=== PATIENT | male | born 1945 | race Caucasian/White ===

== ENCOUNTER 2018-02-02 14:28 | Emergency (ER) | payer MEDICARE, OTHER, SELFPAY ==
[2018-02-02 14:36] VITALS: BP 134/56; PULSE 67; RESP 18; TEMP 36.6; O2SAT 96
--- NOTE | 2018-02-02 15:17 | DI.REPORT_ITS ---
SYMPTOM/DIAGNOSIS: FELL, PAIN LEFT SHOULDER; Multiple views. No priors. No acute fracture or dislocation is seen. There is near complete loss of the glenohumeral joint with subchondral sclerosis, osteophyte formation and subchondral cyst present. There are hypertrophic changes seen at the acromioclavicular joint. Calcifications are seen adjacent to the greater tuberosity consistent with calcific tendinitis. No radiopaque foreign bodies are seen in the soft tissues. IMPRESSION: 1. No acute fracture or dislocation. 2. Severe degenerative changes of the left shoulder.
--- NOTE | 2018-02-02 16:07 | ED.GENADUL ---
Disposition Clinical Impression: Left shoulder pain, Osteoarthritis of left shoulder Disposition: HOME Condition: Good Instructions: Osteoarthritis (ED), Shoulder Pain (ED) Additional Instructions: Continue to take your normal prescribed medication and follow-up with physical therapist as recommended by the [facility]. feel free to return for any new or significant worsening of symptoms otherwise if not improving over the next 2 weeks please follow-up with your primary care provider for reassessment. Referrals: [facility] [Outside] - 2 weeks (If not improving follow-up with your primary care provider for reassessment.) Forms: Physical Therapy Referral Medical Decision Making - Radiology Data Radiology results: report reviewed, image reviewed - Medical Decision Making Patient presenting to the emergency department for chief complaint of left shoulder pain after fall. Patient has been evaluated by primary care and sent to physical therapy but due to them not performing imaging patient was concerned for possible more serious injury. Patient does have significant reduction of range of motion and given patient's age and complaint of fall I do feel that radiological imaging is warranted given that this is not been improving over the last 2 weeks. Patient does state severe arthritis so this may be more a flareup of discomfort due to ongoing arthritis but so I do feel it would be beneficial to perform imaging at this time. Review of radiological imaging and radiologist interpretation shows severe degeneration of the joint of the shoulder but no fractures or dislocations noted. Patient was informed of these findings and that he should continue with recommendation for physical therapy to see if they can increase some range of motion of the joint otherwise to follow back up with the [facility] in [place] for possible referral to orthopedist as needed or if not improving after physical therapy. Patient otherwise recommended to take his normal medications as he does for gout and his arthritis. Was encouraged to continue to perform gentle range of motion activities as I feel this may help pending physical therapy follow-up. Patient encouraged to return for any new or worsening symptoms otherwise to follow-up as directed previously. After discussion of diagnosis and plan of care with patient patient agreed and stated no further needs, questions, or concerns at this time. History of Present Illness - General Chief complaint: Orthopedic Stated complaint: FELL-LEFT SHOULDER INJURY Time Seen by Provider: 02/02/18 14:45 Source: patient, family, RN notes reviewed Mode of arrival: ambulatory Limitations: no limitations - History of Present Illness Initial comments: Patient presenting to the emergency department with chief complaint of falling from the toilet 2 weeks ago and landing on his left shoulder. Patient denies any loss of consciousness chest pain, or syncope that occurred he just leaned too far forward and fell over. Since then he has had persistent pain to his left shoulder. He does report that he has ongoing arthritis and has recently been seen by his primary care provider for the same complaint but they did not order any x-ray imaging of the shoulder and just wanted him to go to physical therapy. Him and his are concerned for more serious illness due to them not performing any imaging and are here requesting imaging of the shoulder. Onset/Timin -: week(s) Location: left, upper extremity Severity scale (1-10): 6 Quality: aching Consistency: constant Improves with: rest Worsens with: movement Associated Symptoms: denies other symptoms Treatments Prior to Arrival: none - Related Data Atenolol 100 mg PO DAILY 03/14/14 Simvastatin 40 mg PO DAILY 03/14/14 Folic Acid 1 mg PO DAILY 06/28/15 Omeprazole 20 mg PO DAILY 06/28/15 Tamsulosin HCl 2 tab PO HS 02/05/16 Allopurinol 200 mg PO DAILY 02/02/18 Calcium Acetate 667 mg PO . DIRECTED 02/02/18 Carboxymethylcellulose Sodium [Lubricant Eye Drop] 1 drp OP QID PRN PRN 02/02/18 Citric Acid/Sodium Citrate [Cytra-2 Oral Solution] 473 ml PO HS 02/02/18 Ferrous Sulfate [Feosol] 325 mg PO TID 02/02/18 Fluticasone Propionate [Flovent Diskus] 50 mcg IH BID 02/02/18 Hydrocodone Bit/Acetaminophen [Hydrocodon-Acetaminoph 7.5-325] 1 each PO TID PRN PRN 02/02/18 Hydroxychloroquine Sulfate 200 mg PO BID 02/02/18 Lactobacillus Acidophilus [Acidophilus] 1 cap PO DAILY 02/02/18 NIFEdipine CR [Procardia-Xl] 30 mg PO DAILY 02/02/18 Allergies Allergy/AdvReac Type Severity Reaction Status Date / Time Penicillins Allergy Severe Swelling/Ed Unverified 02/02/18 14:42 shantell dicloxacillin Allergy per [facility] Unverified 02/02/18 16:07 terazosin Allergy per [facility] Unverified 02/02/18 16:08 Review of Systems Constitutional: no symptoms reported Respiratory: denies: cough, shortness of breath Cardiovascular: denies: chest pain, palpitations, syncope Musculoskeletal: as per HPI, arthralgia Neurological: numbness (Occasional and intermittent that runs on the left shoulder into the lower arm.) Past Medical History - Past Medical History Medical history: arthritis, ESRD, hyperlipidemia, hypertension Gout, renal insufficiency, end-stage renal disease on dialysis. Surgical history: other (Dialysis shunt right extremity, tonsillectomy, multiple plastic surgeries.) - Social History Smoking status: former smoker Alcohol use: none Drug use: none General Exam - General Limitations: no limitations General appearance: alert, in no apparent distress - Head Head exam: Present: atraumatic, normocephalic - Neck Neck exam: Absent: tenderness - Respiratory Respiratory exam: Present: normal lung sounds bilaterally. Absent: respiratory distress, decreased breath sounds - Cardiovascular Cardiovascular Exam: Present: regular rate, normal rhythm, normal heart sounds. Absent: systolic murmur, diastolic murmur - Expanded Upper Extremity Exam Left Shoulder Exam: Present: tenderness (To palpation of anterior shoulder and scapula.). Absent: full ROM (Significant decreased range of motion of shoulder which patient states has slightly worsened after the fall. Patient has severe reduction in external rotation and abduction of the shoulder.), swelling, deformity, crepidus, dislocation, tenderness over AC joint Upper Arm exam: Present: normal inspection. Absent: tenderness Elbow exam: Present: normal inspection. Absent: tenderness Neuro motor exam: Present: wrist extension intact, thumb opposition intact, thumb IP flexion intact, thumb adduction intact, fingers 2-5 abduction intact Neurosensory exam: Present: 2-point discrimination, radial nerve intact, ulnar nerve intact, median nerve intact Vascular: Present: normal capillary refill, radial pulse (2+) - Neurological Exam Neurological exam: Present: alert, oriented X3. Absent: altered - Skin Skin exam: Present: warm, dry Course Vital Signs - 24 hr /09/17 14:36 Temperature 36.6 C Pulse 67 Respiratory 18 Rate Blood Pressure 134/56 Pulse Oximetry 96
--- NOTE | 2018-02-02 16:10 | DI.VRAD_ITS ---
EXAM: XR Left Shoulder Complete, 2 or More Views EXAM DATE/TIME: 02/02/2018 3:54 PM CLINICAL HISTORY: 72 years old, male; Pain; Other: Lt shoulder; Patient HX: Fall TECHNIQUE: XR Left shoulder complete 2 or more views. COMPARISON: No relevant prior studies available. FINDINGS: Bones/joints: Severe degenerative changes of the shoulder joint with near-complete loss of joint space. There is sclerosis and geode formation. No acute fracture. No dislocation. Soft tissues: Normal. IMPRESSION: 1. Severe degenerative changes of the shoulder joint. 2. No acute fracture or dislocation. Dictated and Authenticated by: Sanford Mcnally MD. Ordering:ANIRUDH HONG MD
== END 2018-02-02 16:44 | disposition home or self-care (01) ==
PROVIDERS: Emergency Provider Student in an Organized Health Care Education/Training Program
DX: M25.512 Pain in left shoulder (principal); M19.012 Primary osteoarthritis, left shoulder; W18.11XA Fall from or off toilet without subsequent striking against object, initial encounter; I12.0 Hypertensive chronic kidney disease with stage 5 chronic kidney disease or end stage renal disease; N18.6 End stage renal disease; Z99.2 Dependence on renal dialysis
CPT/HCPCS: 73030; 99283 ×2

== ENCOUNTER 2018-03-07 18:08 | Inpatient (IN) | payer MEDICARE, OTHER, SELFPAY ==
[2018-03-07] VITALS (32 sets, daily range): BP systolic 93–125; BP diastolic 47–68; PULSE 70–81; RESP 18–32; TEMP 36.9–37.1; O2SAT 94–100
--- NOTE | 2018-03-07 18:39 | DI.RAD_ITS ---
SYMPTOMS/DIAGNOSIS: WEAKNESS, ? PNEUMONIA AP AND LATERAL CHEST: Comparison is made with [id number]. The lungs are poorly inflated on both views. The patient was unable to hold his breath. The lungs are grossly clear. The heart appears enlarged, unchanged. IMPRESSION: Limited exam. No visible pneumonia.
--- NOTE | 2018-03-07 18:41 | DI.RAD_ITS ---
SYMPTOM/DIAGNOSIS: MID RT FOOT PAIN, RT LEG SWELLING, REDNESS, ? FX OR OSTEO RIGHT TIBIA AND FIBULA: There is soft tissue atrophy as well as scarring. There is marked soft tissue calcification which somewhat obscures the bony detail. There is no evidence of fracture. No gross bony erosions are seen. IMPRESSION: Soft tissue calcification and soft tissue deformity. No acute bony abnormality is visible. RIGHT FOOT: There is soft tissue swelling, greatest dorsally and medially. A soft tissue wound is seen at the great toe. No definite areas of bony destruction are seen. There is fusion between the first cuneiform and first metatarsal. Fusion of the toes as well as talonavicular joint is seen. There is deformity of the distal phalanx of the fourth toe. IMPRESSION: Soft tissue wound is seen at the medial aspect of the great toe. There are no definite findings of osteomyelitis. Multiple bony fusions are seen.
[2018-03-07 19:20] LABS: HCT 37.5 % (40.0-50.0); HGB 12.1 g/dL (13.5-17.5); Mean Corp. HGB Concentration 32.3 g/dL (32.0-36.0); Mean Corpuscular Hemoglobin 33.7 pg (27.0-33.0); Mean Corpuscular Volume 104.5 fL (80-95); Mean Platelet Volume 9.2 fL (8.0-11.0); Platelet Count 237 x1000/uL (130-400); RBC 3.59 m/cumm (4.50-6.00); RBC Distribution Width 14.9 % (11.8-14.1); White Blood Cell Count 18.62 k/cumm (4.4-10.8)
[2018-03-07 19:35] LABS: ALT 29 U/L (12-78); AST 27 U/L (15-37); Albumin 3.2 g/dL (3.4-5.0); Alkaline Phosphatase 122 U/L (46-116); Anion Gap 10.6 mmol/L (3-11); BUN 67 mg/dL (7-18); Bilirubin, Direct 0.16 mg/dL (0.00-0.20); Bilirubin, Total 0.4 mg/dL (0.2-1.0); CO2 27.4 mmol/L (21.0-32.0); Calcium 9.6 mg/dL (8.5-10.1); Chloride 96 mmol/L (98-107); Estimated GFR 8.85 (mL/min/1.73m2); Glucose 82 mg/dL (70-100); Magnesium 1.4 mg/dL (1.8-2.4); Potassium 4.5 mmol/L (3.5-5.1); Sodium 134 mmol/L (136-145); Total Protein 8.1 g/dL (6.4-8.2)
[2018-03-07 19:47] LABS: Absolute Lymphocyte Count 0.19 k/cumm (1.2-3.4); Absolute Neutrophil Count 15.45 k/cumm (1.2-6.7)
[2018-03-07 19:48] LABS: Absolute Monocyte Count 1.49 k/cumm (0.11-0.7); RBC Morphology Normal
[2018-03-07 19:50] LABS: CREATININE 6.29 mg/dL (0.70-1.30); Diff Comment Manual Differential
[2018-03-07 19:55] LABS: Troponin I 0.08 ng/mL (0.00-0.06)
--- NOTE | 2018-03-07 19:59 | DI.VRAD_ITS ---
EXAM: XR Chest, 2 Views CLINICAL HISTORY: 72 years old, male; Signs and symptoms; Other: Weakness; R/O pna TECHNIQUE: Frontal and lateral views of the chest. COMPARISON: CR - CHEST 2 VIEWS PA,LAT 06/28/2015 12:37 PM FINDINGS: Lungs: Unremarkable pulmonary vasculature. Clear lungs. Diminished lung volumes. Pleural space: No pleural effusion or pneumothorax. Heart: Mild cardiomegaly, unchanged. Mediastinum: Unremarkable. Bones/joints: Degenerative spondylosis of the thoracic spine. Severe degenerative arthrosis of both glenohumeral joints. IMPRESSION: 1. Mild cardiomegaly, unchanged. 2. Diminished lung volumes. Dictated and Authenticated by: Kyle Santana MD. Ordering:TAMERA ESCOBAR MD
--- NOTE | 2018-03-07 20:08 | DI.VRAD_ITS ---
EXAM: XR Right Foot Complete, 3 or More Views CLINICAL HISTORY: 72 years old, male; Signs and symptoms; Other: Mid r foot pain, R/O acute fx/osteo; Additional info: Ap and obl views taken cross table/with angles as patient could not move foot TECHNIQUE: Frontal, lateral and oblique views of the right foot. COMPARISON: No relevant prior studies available. FINDINGS: Bones/joints: Soft tissue calcifications within the ankle and foot suggestive of connective tissue disease. Bony ankylosis of the talonavicular joint and at least partial bony ankylosis of the subtalar and calcaneocuboid joints. Bony ankylosis of multiple tarsal bones and the first and second tarsal-metatarsal joints. Bony ankylosis of the second toe distal interphalangeal, third toe proximal interphalangeal and fifth toe distal interphalangeal joints. These findings are likely the sequela of ankylosing spondylitis. No acute fracture. No dislocation. Soft tissues: Soft tissue swelling and superficial ulceration of the medial soft tissues of the great toe at the level of the interphalangeal joint. There are findings suspicious for minimal periostitis at the medial cortical surface of the proximal phalanx head. No chriss bone destruction is identified. These changes may be reactive to soft tissue inflammation as well as indicative of mild/early osteomyelitis. No radiopaque foreign body. IMPRESSION: 1. Swelling and ulceration of the great toe soft tissues consistent with cellulitis. No chriss bone destruction is identified to confirm osteomyelitis. However, there is questionable minimal periostitis at the medial cortical surface of the proximal phalanx head which may indicate early/mild osteomyelitis. 2. Extensive soft tissue calcification throughout the ankle and foot likely secondary to connective tissue disease. 3. Polyarticular ankylosis within the hindfoot, midfoot and forefoot likely secondary to ankylosing spondylitis. Dictated and Authenticated by: Kyle Santana MD. Ordering:TAMERA ESCOBAR MD
--- NOTE | 2018-03-07 20:12 | W.ED.GENAD ---
Discharge Plan Discharge Details Chief Complaint: SOB Clinical Impression: Sepsis, Cellulitis of leg, right Reason For Visit: CELLULITIS RIGHT FOOT, ESRD Admit Date/Time: 03/07/18 22:51 Admit Provider: Nathen Mcmillan Attending Provider: Nathen Mcmillan [facility] Care Provider: [facility] Provider: Suhail Mustafa Disposition Patient Disposition: [facility] INPATIENT Condition: Stable Discharge Data Discharge Date/Time-TO BE ENTERED AT DEPARTURE: 03/08/18 00:03 Medical Decision Making <Tricia King DO - Last Filed: 03/08/18 15:38> [facility] Narrative Medical decision making narrative: Patient is a 72-year-old male with history of hypertension, hyperlipidemia, end-stage renal disease on dialysis who presents for vomiting ?1 last night and weakness since last night. Patient last received dialysis yesterday. He denies chest pain, cough, abdominal pain, shortness of breath. He makes a small amount of urine. He also admits to right foot pain. 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 had initially stated that his right leg appears at baseline and he last saw podiatry 1 week ago and states it had been improving. He has faint DP and PT pulses. There is erythema extending from the right mid leg down to right foot. His right plantar surface great toe ulcer appears hardened and not acutely infected. His right lateral ankle ulcer appears to have healthy granulation tissue and no obvious cellulitis. He denies any headache or neck pain. Vitals within normal limits. EKG on arrival notes a rate of 76, sinus, no acute ST elevation or depression, QTC 479, QRS 116. With patient's age, past medical history, comorbidities, will do a cardiac workup, urinalysis, chest x-ray as well as a right foot and leg x-ray. 1999 --labs and imaging reviewed. White blood cell count 18. Bands 25. Creatinine 6.29. Potassium 4.5. Troponin 0.08 Chest x-ray no evidence of acute infection. Right foot x-ray notes swelling and ulceration of the great toe consistent with cellulitis. No osteomyelitis. There is a questionable periostitis at the medial proximal phalanx head which could indicate early/mild osteomyelitis. Right tib-fib x-ray pending. At this point, workup appears consistent with an acute infection. As patient is on dialysis, will hold on vancomycin, daptomycin or linezolid. Will order a dose of Cipro and clindamycin. If there is osteomyelitis, clindamycin will not cover as well, but I am concerned about giving the above mentioned antibiotics due to his dialysis. Will discuss with nephrology. also states that patient had 3 bouts of C. difficile in the fall. Patient will need admission for IV antibiotics and will need dialysis. [facility] 2029 --is endorsed to Dr. Mustafa [facility]. Lab Data Lab Results 03/07/18 03/07/18 Range/Units 19:10 19:10 WBC 18.62 H (4.4-10.8) k/cumm RBC 3.59 L (4.50-6.00) m/cumm Hgb 12.1 L (13.5-17.5) g/dL Hct 37.5 L (40.0-50.0) % MCV 104.5 H (80-95) fL MCH 33.7 H (27.0-33.0) pg MCHC 32.3 (32.0-36.0) g/dL RDW 14.9 H (11.8-14.1) % Plt Count 237 (130-400) x1000/uL MPV 9.2 (8.0-11.0) fL Immature Gran % See Differential Neutrophils % 58.0 Lymphocytes % 1.0 Monocytes % 8.0 Eosinophils % 0.0 Basophils % 0.0 Absolute Neutrophils 15.45 H (1.2-6.7) k/cumm Band Neutrophils 25.0 % Absolute Lymphocytes 0.19 L (1.2-3.4) k/cumm Absolute Monocytes 1.49 H (0.11-0.7) k/cumm Absolute Eosinophils 0.00 (0.0-0.7) k/cumm Absolute Basophils 0.00 (0.0-0.2) k/cumm Metamyelocytes 8.0 % Differential Comment Manual differential RBC Morphology Normal Sodium 134 L (136-145) mmol/L Potassium 4.5 (3.5-5.1) mmol/L Chloride 96 L (98-107) mmol/L Carbon Dioxide 27.4 (21.0-32.0) mmol/L Anion Gap 10.6 (3-11) mmol/L BUN 67 H (7-18) mg/dL Creatinine 6.29 H* (0.70-1.30) mg/dL Estimated GFR/1.73 m2 8.85 (mL/min/1.73m2) Glucose 82 (70-100) mg/dL Calcium 9.6 (8.5-10.1) mg/dL Magnesium 1.4 L (1.8-2.4) mg/dL Total Bilirubin 0.4 (0.2-1.0) mg/dL Conjugated Bilirubin 0.16 (0.00-0.20) mg/dL AST 27 (15-37) U/L ALT 29 (12-78) U/L Alkaline Phosphatase 122 H (46-116) U/L Troponin I 0.08 H (0.00-0.06) ng/mL Total Protein 8.1 (6.4-8.2) g/dL Albumin 3.2 L (3.4-5.0) g/dL <Suhail Mustafa, - Last Filed: 03/07/18 23:18> MDM Narrative Medical decision making narrative: This case was signed out to be by my colleague Dr. King. The patient demonstrated an elevated white count, notable bandemia, mildly elevated lactate at 2.4, and no identifiable source in the lungs or the urine. He has no headache to suggest meningitis. He does have redness on his right lower extremity as well as a small ulcer on his right great toe and heel. My colleague felt that this is most likely source of an infection, and I do agree. X-ray of the lower extremity per virtual radiology states that there is no acute fracture, no definite radiographic evidence of osteoarthritis, extensive soft tissue atrophy and calcification. No radiographic evidence of acute osteomyelitis. The patient has maintained hemodynamic stability here, shows no signs of severe sepsis. There was a delay for giving the clindamycin and so I changed to vancomycin 500 mg which will be appropriate for his current renal function. He has gotten Cipro as well. [facility], however they state that the patient is unable to come secondary to the fact that they have no nephrology for dialysis until April. They have refused the patient. We then contacted [facility], they were unable to accept any non-severely critical patient for dialysis at this time. We did contact the [facility], they are unable to accept the patient currently, however they can by tomorrow morning. I discussed this with Dr. Munguia, and he agreed for accepting the patient for tomorrow morning. I discussed the case with and he agreed to accept the patient overnight until the patient can be transferred tomorrow morning at 8 AM. I have extensively reviewed the treatment plan with the patient. I have addressed all patient concerns at this time. I have also discussed the plan with the admitting physician and they agree with the current assessment and plan and have agreed to assume responsibility for the patient. All parties demonstrate verbal understanding and agreement with our assessment and plan at this time. Diagnosis cellulitis of the right lower extremity HPI - General Adult <Tricia King DO - Last Filed: 03/08/18 15:38> General Mode of arrival: EMS. Date/Time Provider Initiated Documentation: 03/07/18 18:19. Limitations to Documentation: no limitations. Information obtained by: patient. HPI Narrative: Patient is a 72-year-old male with history of hypertension, hyperlipidemia, and end-stage renal disease on dialysis who presents with fatigue and vomiting once since last night. Patient last had dialysis yesterday and states he completed a full session. States the vomitus was clear mixed with phlegm but denies any blood. He admits to eating and drinking okay today. He still makes a small amount of urine. He does admit to right foot pain since this morning. He has a history of an old injury in 1967 in which his right leg was crushed and has chronic vascular insufficiency in his right leg with chronic right foot ulcers. states he is [facility] for [facility] and states he was recently seen last week and was told the ulcers appear to be improving. He denies chest pain or shortness of breath. Denies abdominal pain or known urinary symptoms. He denies recent surgery, recent travel or recent antibiotics. Related Data Home Medications Medication Instructions Recorded Confirmed atenolol 100 mg PO DAILY 03/14/14 03/07/18 simvastatin 40 mg PO DAILY 03/14/14 03/07/18 folic acid 1 mg PO DAILY 06/28/15 03/07/18 omeprazole 20 mg PO DAILY 06/28/15 03/07/18 tamsulosin 2 tab PO HS 02/05/16 03/07/18 Carboxymethylcellulose Sodium 1 drp OPHTHALMIC QID PRN PRN 02/02/18 03/07/18 [Lubricant Eye Drop] acidophilus-pectin, citrus 1 cap PO DAILY 02/02/18 03/07/18 allopurinol 200 mg PO DAILY 02/02/18 03/07/18 calcium acetate 667 mg PO . DIRECTED 02/02/18 03/07/18 ferrous sulfate [Feosol] 325 mg PO TID 02/02/18 03/07/18 hydrocodone-acetaminophen 1 ea PO TID PRN PRN 02/02/18 03/07/18 hydroxychloroquine 200 mg PO BID 02/02/18 03/07/18 nifedipine 30 mg PO DAILY 02/02/18 03/07/18 sodium citrate-citric acid 473 ml PO HS 02/02/18 03/07/18 [Cytra-2] acetaminophen [Tylenol Arthritis 650 mg PO PRN PRN 03/07/18 03/07/18 Pain] fluticasone [Flovent Diskus] 03/07/18 Allergies Allergy/AdvReac Type Severity Reaction Status Date / Time Penicillins Allergy Severe Swelling/Ed Unverified 03/07/18 18:18 shantell dicloxacillin [facility] Unverified 03/07/18 18:18 terazosin Allergy [facility] Unverified 03/07/18 18:18 General Stated Complaint: SOB AMADA: 2 Review of Systems <Tricia King DO - Last Filed: 03/08/18 15:38> Review of Systems All systems reviewed & are unremarkable except as noted in HPI and below Constitutional Reports chills, Denies excessive sweating, Reports fatigue, Denies fever(s), Reports weakness and Denies weight loss Eyes Patient Reports system reviewed and no additional complaints, except as docu and Denies blurry vision ENT Denies vertigo, Denies dizziness, Denies otalgia, Denies nasal congestion, Denies sore throat and Denies throat swelling Cardiovascular Denies chest pain, Denies syncope, Denies rapid heart rate and Denies dyspnea Respiratory Denies dyspnea Gastrointestinal Denies abdominal pain and Denies diarrhea Comments: 1 episode of vomiting last night Genitourinary Denies hematuria, Denies dysuria and Denies flank pain Musculoskeletal Denies back pain, Denies joint swelling and Reports other (R foot and leg pain) Integumentary/Breasts Denies lesions and Denies rash Neurologic Denies behavioral changes, Denies confusion, Denies vertigo, Denies dizziness, Denies syncope and Reports weakness Psychiatric Denies behavioral changes, Denies confusion and Denies depression Endocrine Denies excessive sweating and Reports fatigue Hematologic/Lymphatic Denies easy bruising and Denies lymphadenopathy Allergic/Immunologic Denies throat swelling Exam <Tricia King DO - Last Filed: 03/08/18 15:38> Const General: cooperative and ill appearing Orientation: alert and awake HENMT Head: normal to inspection Ears: hearing grossly normal bilaterally, external ears normal and TM's normal bilaterally General nose exam: external nose normal Face and sinus: normal facial exam Mouth: oral mucosae normal Eyes General: appearance normal, both eyes and all related structures Eyelids: eyelids normal Pupils: PERRL EOM: EOM intact bilaterally Neck Neck: normal visual inspection Lymphatic: no lymphadenopathy noted Chest Chest: normal inspection of the chest Resp Effort & Inspection: normal respiratory effort and able to speak in complete sentences Auscultation: clear to auscultation bilaterally Cardio Rate: regular rate Rhythm: regular rhythm GI Inspection: normal to inspection Palpation: soft, not firm, no guarding, no hepatosplenomegaly, no masses and nontender Auscultation: normal bowel sounds Back/Spine/Pelvis Back: no CVA tenderness Skin General skin exam: no rashes or lesions noted Neuro General: alert and awake Cognition: normal cognition Speech: speech normal Gait: normal gait Motor: muscle tone normal throughout Sensory Exam: no sensory deficits noted Extrem Other: Atrophic right lower extremity with significant scarring and loss of muscle mass from old injury. Moderate erythema noted to distal right lower extremity. Tenderness to palpation along plantar surface of midfoot. Faintly palpable right DP/PT pulses. There is an approximately 3 x 3 cm hard erosion noted to plantar surface of right great toe with no significant surrounding cellulitis, induration or fluctuance. There is an approximate 3 x 3 cm open wound noted on the right lateral ankle with clean edges and granulation tissue and no obvious cellulitis. Psych Speech and Movement: other (delayed responses) Affect: blunted and other (flat affect, looks down when speaking to hin ) Course <Tricia King DO - Last Filed: 03/08/18 15:38> Vital Signs Temperature 98.4 F 03/07/18 18:09 Pulse 77 03/07/18 18:09 Respiratory Rate 18 03/07/18 18:09 Blood Pressure 110/58 L 03/07/18 18:09 Pulse Oximetry 97 03/07/18 18:09 Temperature 98.4 F 03/07/18 18:09 Pulse 77 03/07/18 18:09 Respiratory Rate 24 03/07/18 18:37 Blood Pressure 110/58 L 03/07/18 18:09 Pulse Oximetry 97 03/07/18 18:09 Lab/Test Results Lab/Test Results: Laboratory Tests 03/07/18 03/07/18 19:10 19:10 WBC 18.62 H RBC 3.59 L Hgb 12.1 L Hct 37.5 L MCV 104.5 H MCH 33.7 H MCHC 32.3 RDW 14.9 H Plt Count 237 MPV 9.2 Immature Gran % See Differential Neutrophils % 58.0 Lymphocytes % 1.0 Monocytes % 8.0 Eosinophils % 0.0 Basophils % 0.0 Absolute Neutrophils 15.45 H Band Neutrophils 25.0 Absolute Lymphocytes 0.19 L Absolute Monocytes 1.49 H Absolute Eosinophils 0.00 Absolute Basophils 0.00 Metamyelocytes 8.0 Differential Comment Manual differential RBC Morphology Normal Sodium 134 L Potassium 4.5 Chloride 96 L Carbon Dioxide 27.4 Anion Gap 10.6 BUN 67 H Creatinine 6.29 H* Estimated GFR/1.73 m2 8.85 Glucose 82 Calcium 9.6 Magnesium 1.4 L Total Bilirubin 0.4 Conjugated Bilirubin 0.16 AST 27 ALT 29 Alkaline Phosphatase 122 H Troponin I 0.08 H Total Protein 8.1 Albumin 3.2 L Sign Out <Tricia King DO - Last Filed: 03/08/18 15:38> Sign Out Data: Sign Out Comment: Case [facility] Last updated by Tricia King DO at 03/07/18 20:42
[2018-03-07] MEDS: Normal Saline 250 ML IV (20:50)
--- NOTE | 2018-03-07 20:57 | DI.VRAD_ITS ---
EXAM: XR Right Tibia and Fibula, 2 Views CLINICAL HISTORY: 72 years old, male; Signs and symptoms; Other: Rt leg swelling/redness TECHNIQUE: Frontal and lateral views of the right tibia and fibula. COMPARISON: No relevant prior studies available. FINDINGS: Bones/joints: Extensive soft tissue calcifications throughout the right lower leg and ankle and atrophied soft tissues, likely secondary to connective tissue disorder. The sequelae of old soft tissue injury secondary to other primary etiology is not excluded. Degenerative arthrosis of the knee and ankle joint. No fracture. No radiographic evidence of acute osteomyelitis. Evaluation of the tibia and fibula is slightly suboptimal secondary to the superimposed soft tissue calcifications. Soft tissues: See above. Vasculature: Probable vascular calcifications at the ankle. IMPRESSION: 1. No acute fracture. 2. No definite radiographic evidence of osteoarthritis. 3. Extensive soft tissue atrophy and calcification. Dictated and Authenticated by: Kyle Santana MD. Ordering:TAMERA ESCOBAR MD
[2018-03-07] MEDS: MORPHine 10 MG/ML VIAL 4 MG IVP (21:08)
[2018-03-07] MEDS: CIPROFLOXACIN 400 MG/200 ML BAG 200 MG IVPB (21:10)
[2018-03-07 21:40] LABS: Lactate-non-spesis 2.4 mmol/L (0.6-1.4)
[2018-03-07 22:20] LABS: Bilirubin Small (Negative); Blood Small (Negative); Clarity Sl Cloudy; Glucose Negative (Negative); Ketones 15 mg/dL (Negative); Leukocyte Esterase Small (Negative); Nitrite Negative (Negative); Specific Gravity 1.025 (1.005-1.025); Urobilinogen 0.2 EU/dL (Up TO 0.2)
[2018-03-07 22:37] LABS: Epithelial Cells Few HPF (Negative); WBC >50 HPF (0-5)
[2018-03-07 22:38] LABS: Bacteria Few HPF (Negative); C & S Indicated? Yes; Casts Negative LPF (Negative); Crystals Negative HPF (Negative); Mucus Negative (Negative); Other Cells Moderate Renal (Negative)
[2018-03-07] MEDS: VANCOMYCIN 500 MG in Normal Saline 100 ML 100 MG IVPB (23:28)
[2018-03-07] MEDS: Normal Saline 100 ML (23:28)
[2018-03-08] VITALS (7 sets, daily range): BP systolic 91–108; BP diastolic 56–58; PULSE 75–83; RESP 18–22; TEMP 36.9–38.4; O2SAT 95–96
[2018-03-08] MEDS: Enoxaparin 30 MG/0.3 ML SYR SC (03:41)
--- NOTE | 2018-03-08 05:55 | INITIAL_ITS ---
- If Service Date Differs Date of service: 03/08/18 Time of Service: 08:05 Care Management Initial Assess REASON FOR HOSPITALIZATION:: Cellulitis (R) Foot PAST MEDICAL HISTORY/PAST SURGICAL HISTORY:: Per ER assessment: Gout, Hypertension, High cholesterol, Kidney stones, Renal insufficiency, ESRD on dialysis, Colonoscopy, Tonsillectomy, Multiple plastic surgeries, Dialysis shunt (R) arm PREVIOUS FUNCTIONAL STATUS/SOCIAL/FAMILY SUPPORTS:: Erik resides with his Sheba in [place]. He is independent at baseline. Zaida Sheba is his main support in the community. CURRENT FUNCTIONAL STATUS:: Erik is in his room lying in bed this morning. He will be transferred to [facility] for further medical care as Erik is a dialysis patient. ADVANCE DIRECTIVES:: None on file Has patient been provided with information about the portal?: Yes Did the patient sign up for the portal?: No CODE STATUS:: Full Code INSURANCE COVERAGE / FINANCIAL ISSUES:: Medicare, [facility] CURRENT HOME/COMMUNITY SERVICES/EQUIPMENT:: Currently Erik has no services or medical equipment in the community. PRIMARY CARE PHYSICIAN:: JOSUE POTENTIAL DISCHARGE NEEDS:: Transfer to [facility] PATIENT/FAMILY EDUCATION NEEDS:: Review DC instructions, any limitations, and ongoing DC planning discussion. ANTICIPATED BARRIERS TO DISCHARGE:: None identified at this time. TRANSPORTATION:: Via [facility] ambulance service. PLAN:: Erik will transfer to [facility] for futher medical treatment. Erik will transport via [facility]. His Sheba is aware of transfer. Readmission - Within the Past 30 Days Yes or No: N
[2018-03-08 06:05] LABS: Abs Immature Grans 1.31 k/cumm (0.0-0.09); HCT 32.3 % (40.0-50.0); HGB 10.6 g/dL (13.5-17.5); Mean Corp. HGB Concentration 32.8 g/dL (32.0-36.0); Mean Corpuscular Hemoglobin 34.5 pg (27.0-33.0); Mean Corpuscular Volume 105.2 fL (80-95); Mean Platelet Volume 8.9 fL (8.0-11.0); Platelet Count 215 x1000/uL (130-400); RBC 3.07 m/cumm (4.50-6.00); RBC Distribution Width 14.7 % (11.8-14.1); White Blood Cell Count 18.72 k/cumm (4.4-10.8)
[2018-03-08 06:15] LABS: Anion Gap 8.7 mmol/L (3-11); BUN 78 mg/dL (7-18); CO2 28.3 mmol/L (21.0-32.0); Calcium 9.2 mg/dL (8.5-10.1); Chloride 93 mmol/L (98-107); Estimated GFR 8.31 (mL/min/1.73m2); Glucose 52 mg/dL (70-100); Potassium 5.4 mmol/L (3.5-5.1); Sodium 130 mmol/L (136-145)
[2018-03-08 06:19] LABS: C-Reactive Protein > 25.00 mg/dL (0.0-0.3); CREATININE 6.64 mg/dL (0.70-1.30)
[2018-03-08 06:52] LABS: ESR 97 MM/HR (1-20)
[2018-03-08 06:59] LABS: Absolute Lymphocyte Count 0.19 k/cumm (1.2-3.4); Absolute Monocyte Count 0.75 k/cumm (0.11-0.7)
[2018-03-08 07:00] LABS: Hypochromasia 2+; Macrocytosis 2+; Polychromasia Present
[2018-03-08 07:01] LABS: Poikilocytes 2+
--- NOTE | 2018-03-08 08:00 | PDOC.CMIN ---
- If Service Date Differs Date of service: 03/08/18 Time of Service: 08:05 Care Management Initial Assess REASON FOR HOSPITALIZATION:: Cellulitis (R) Foot PAST MEDICAL HISTORY/PAST SURGICAL HISTORY:: Per ER assessment: Gout, Hypertension, High cholesterol, Kidney stones, Renal insufficiency, ESRD on dialysis, Colonoscopy, Tonsillectomy, Multiple plastic surgeries, Dialysis shunt (R) arm PREVIOUS FUNCTIONAL STATUS/SOCIAL/FAMILY SUPPORTS:: Erik resides with his Sheba in [place]. He is independent at baseline. Zaida Sheba is his main support in the community. CURRENT FUNCTIONAL STATUS:: Erik is in his room lying in bed this morning. He will be transferred to [facility] for further medical care as Erik is a dialysis patient. ADVANCE DIRECTIVES:: None on file Has patient been provided with information about the portal?: Yes Did the patient sign up for the portal?: No CODE STATUS:: Full Code INSURANCE COVERAGE / FINANCIAL ISSUES:: Medicare, [facility] CURRENT HOME/COMMUNITY SERVICES/EQUIPMENT:: Currently Erik has no services or medical equipment in the community. PRIMARY CARE PHYSICIAN:: JOSUE POTENTIAL DISCHARGE NEEDS:: Transfer to [facility] PATIENT/FAMILY EDUCATION NEEDS:: Review DC instructions, any limitations, and ongoing DC planning discussion. ANTICIPATED BARRIERS TO DISCHARGE:: None identified at this time. TRANSPORTATION:: Via [facility] ambulance service. PLAN:: Erik will transfer to [facility] for futher medical treatment. Erik will transport via [facility]. His Sheba is aware of transfer. Readmission - Within the Past 30 Days Yes or No: N
--- NOTE | 2018-03-08 08:09 | CMDISCH_ITS ---
- If Service Date Differs Date of service: 03/08/18 Time of Service: 08:08 LACE Index Scoring Tool - Questions: Length of Stay (in days): 2 Acuity (Admit via E.D.?): Yes Comorbidities: Liver or Renal Disease E.D. Visits: 3 - Answers: Total Score: 13 Risk of Readmission: High Risk Care Management Discharge Reason for Hospitalization: Cellulitis (R) Foot Discharge Plan: Erik to transfer to [facility] for further medical treatment. [facility] to transport. Zaida Sheba is aware. Patient/Family Education Needs: Review DC instructions and any limitations. Services Needed at Discharge: Transportation ([facility])
--- NOTE | 2018-03-08 14:12 | HPE_ITS ---
Date of Admission: March 07, 2018 Chief Complaint: Fever, chills, nausea. Assessment: 1. Cellulitis, right foot. Rule out bacteremia. 2. End-stage renal disease. 3. Essential hypertension. Plan: 1. Will continue with IV antibiotics, including vancomycin being dosed based on his end-stage renal disease. I'll have Pharmacy to dose his vancomycin. 2. Start the patient on ertapenem 500 mg IV q 24 hours, which is the appropriate dosing for end-stag e renal disease. 3. Will arrange for transfer to [facility] in the morning to the care of Dr. Munguia who is the hospitalist th at was notified tonight by our ER physician. History of Present Illness: Mr. Hidalgo is a 72-year-old male with a history of hypertension, and end-stage renal disea se, on dialysis every Monday, Monday, and Monday. He had his usual dialysis today. He was compla ining of feeling nauseated and chilling today. He came to the Emergency Room where he was noted to h ave a white cell count of 18,000, a low grade fever, and a blood lactate of 2.4. Patient has been ch ronically dealing with an ulceration of his right great toe for which he has been seeing his podiatri st in [place], Dr. Cruz. Patient regularly follows up at [facility] He also follows with his discharging machine operator Dr. Isaac at [facility] and attends dialysis here locally in [facility] every M , Monday, and Monday. Dr. Suhail Mustafa saw him from our Emergency Room, and because the pat ient needed acute inpatient care and would likely be here for more than 24 hours, it was felt he'd be best served being transferred to a tertiary care center that could handle his dialysis needs. Both [facility] and [facility] were full and could not take any acute kvng ents tonight, and asked that we admit the patient overnight and begin treatment for what appears to b e a cellulitis of his right foot. The patient has had redness and some swelling of his right foot. This is the same foot and leg that had to be reconstructed after an accident in the back in 1968 while on maneuvers in [place]. Patient has had vascular reconstruction of that leg and multiple skin grafts to that right leg, and he's had chronic recurrent infections in that foot. Dr. Mustafa o btained some blood cultures and started him on vancomycin. Previous to Dr. Mustafa he was seen by Dr. King who gave him a dose of ciprofloxacin. My dictation [facility] is being hampered by the fact that I've not been able to access records in [facility], interfering with my ability to look at the EMR, thus my dictation will be abbreviated. Past Medical History: 1. Essential hypertension. 2. Chronic kidney disease resulting in end-stage renal disease, necessitating hemodialysis every Mon, Monday, and Monday. 3. History of gout. 4. Former smoker, quit over 40 years ago. 5. Former drinker, quit over 40 years ago. 6. 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 Surgical History: 1. Reconstruction of his right leg. 2. Multiple skin grafts of right leg. 3. Placement of AV fistula in his right arm for hemodialysis purposes. Social History: He's , lives in [place]. He's done a number of jobs. 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 Review of Systems: Pertinent for fatigue and malaise as well as fever and chills, including rigors. Denies any chest pain, pressure, shortness of breath. He has had nausea. He's had some dry heaves. Denies any diarrhea. No melena. No hematochezia. No hematemesis. Denies any dysuria. Makes a very small amount of urine. Examination: Vital signs: See nurse's report. General appearance: Elderly male in no acute distress. HEENT: Unremarkable. Neck: Without JVD. Normal carotid pulse. No bruits. No thyromegaly. No cervical lymphadenopathy. Lungs: Clear. Heart: Regular with a soft systolic grade 2/6 murmur over the left lower sternal border. No thrill, heave, or gallop. Abdomen: Soft and nontender. Extremities: He has scars on his right shoulder where skin was taken for grafting on his leg. He als o has scars on his left leg where skin and vessels were harvested from the left leg for use in the ri ght leg. Left foot is warm, non-swollen. No erythema, normal pulses. Right leg is scarred. Foot i s deformed. There is slight erythema over the right foot and ankle. The right great toe has dry steffen ckened eschar over the bottom of the right great toe with no purulent drainage. Pedal pulses are dim inished of the right foot. Sensation is markedly diminished to light touch over the right foot. He has no feeling to light touch.
--- NOTE | 2018-07-05 18:53 | DSE_ITS ---
DATE OF ADMISSION: March 07, 2018 DATE OF TRANSFER: March 08, 2018 HISTORY OF PRESENT ILLNESS: See my admission note from 03/08/18 for details. In summary, this 72-year-old, male with end-stage renal disease on hemodialysis every , Monday, and Monday, also has hypertension. He had his usual dialysis on the day of admission a nd complained of feeling nauseated and chilling. He came to the Emergency Room where he was noted to have a low-grade fever, an elevated blood lactate of 2.4, and a white count of 18,000. He was found to have an ulceration of his right great toe which he had been treating as an outpatient with his po diatrist at the [facility]. He was seen in the Emergency Room by Dr. Cem Mustafa who attempted to transfer him but as there were no tertiary beds available for transfer, t he patient was admitted to our facility temporarily for IV fluids and IV antibiotics. Blood cultures were obtained and the patient was started on IV vancomycin; however, he was also given a dose of cip rofloxacin in the Emergency Room by the previous ER physician, Dr. King. See my History and Physic al for the rest of the details of his admission. Also see Dr. King's ER note. HOSPITAL COURSE: He was febrile at 38.4. Heart rate was stable in the 80s. Blood pressure was mild ly depressed at 91/58. Room air oxygen saturation was 95%. See my History and Physical for details of my examination. His treatment included the vancomycin and ciprofloxacin previously mentioned. He was given supplemen gavin oxygen and placed on telemetry. Within a few hours of admission at [facility] he was accepted in trans paz to the [facility] to Dr. Munguia, Nephrology Department. The patient was transferred in hemodynamically stable condition. Discharge instructions and discharge medications will be reconciled upon discharge from the [facility]. DIAGNOSIS: End-stage renal disease requiring hemodialysis and cellulitis of the foot with possible s epsis.
== END 2018-03-08 07:59 | DRG 602 ==
LOC: ER 23:18 → MS 03-08 00:15
PROVIDERS: Physician Assistant; Admitting Provider Internal Medicine; Emergency Provider Student in an Organized Health Care Education/Training Program; Visit Provider Internal Medicine
DX: L03.115 Cellulitis of right lower limb (principal); N18.6 End stage renal disease; I12.0 Hypertensive chronic kidney disease with stage 5 chronic kidney disease or end stage renal disease; B95.4 Other streptococcus as the cause of diseases classified elsewhere; Z99.81 Dependence on supplemental oxygen
CPT/HCPCS: 36415; 80048; 80053; 80076; 85652; 87040; 87077; 93005; 96361; 96365; 96367; 96375; 99285; 71046; 73590; 73630; 81003; 81015; 83605; 83735; 84484; 85025; 86140; 87086; 93010; 99222; G0378; J0744; J1335; J1650; J2270

== ENCOUNTER 2019-05-17 13:16 | Emergency (ER) | payer MEDICARE, OTHER, SELFPAY ==
[2019-05-17] VITALS (23 sets, daily range): BP systolic 141–160; BP diastolic 64–81; PULSE 81–99; RESP 11–29; TEMP 36.7–37.1; O2SAT 92–98
--- NOTE | 2019-05-17 13:38 | ED.GENADUL_ITS ---
Discharge Plan Disposition Patient Disposition: AGAINST MEDICAL ADVICE Condition: Improving Discharge Details Chief Complaint: SOB Clinical Impression: Fluid overload Primary Care Provider: [place] [place] Provider: Paool Jean Baptiste Home Meds and New Rx's Prescriptions: Continued simvastatin 40 MG tablet 40 mg PO DAILY RF: 0 folic acid 1 MG tablet 1 mg PO DAILY RF: 0 omeprazole 20 MG tablet,delayed release (DR/EC) 20 mg PO DAILY RF: 0 tamsulosin 0.4 MG capsule 2 tab PO HS RF: 0 nifedipine 30 MG tablet extended release 60 mg PO DAILY RF: 0 allopurinol 100 MG tablet 200 mg PO DAILY RF: 0 sodium citrate-citric acid [Cytra-2] 473 ML solution 473 ml PO HS RF: 0 hydrocodone-acetaminophen 1 EACH tablet 1 ea PO TID PRN PRNRF: 0 ferrous sulfate [Feosol] 325 MG tablet 325 mg PO TID RF: 0 hydroxychloroquine 200 MG tablet 200 mg PO BID RF: 0 calcium acetate 667 MG capsule 667 mg PO . DIRECTED RF: 0 Carboxymethylcellulose Sodium [Lubricant Eye Drop] 15 ML Drops 1 drp Ophthalmic QID PRN PRNRF: 0 amlodipine 5 mg Tablet 5 mg PO DAILY RF: 0 lidocaine 5 % Adhesive Patch,Medicated 1 patch TOPICAL DAILY RF: 0 collagenase clostridium histo. 250 unit/gram Ointment 1 applic TOPICAL DAILY RF: 0 Lactobacillus acidophilus Capsule 1 PO DAILY RF: 0 fluticasone propionate 50 mcg/actuation [place],Suspension 1 spray INTRANASAL Q12H RF: 0 diclofenac sodium 1 % Gel 4 g TOPICAL BID PRNRF: 0 paraffin Wax MISCELLANEOUS QID RF: 0 fluticasone propionate [Flovent Diskus] 50 mcg/actuation Blister With Device RF: 0 acetaminophen [Tylenol Arthritis Pain] 650 mg Tablet Extended Release 650 mg PO PRN PRNRF: 0 Discharge Instructions Additional Instructions: You have declined admission/transfer to the hospital this evening. Return at any time for reevaluation. Continue your regularly prescribed medications. Follow-up with dialysis tomorrow as planned. Return to ER for any acute or emergent concerns. Medical Decision Making 73-year-old male presents from home with his . He reports 2 days of progressive mild shortness of breath. He denies chest pain, he has not had a new cough and no fever. He receives Monday//Monday dialysis and reports a normal dialysis run yesterday. Patient reports a dry weight of approximately 230 pounds. 234 pounds today. He is well-appearing and oxygenating 89-90% on room air, normalized with 1 L nasal cannula. Patient placed on a quality assurance monitor chassis, EKG, laboratories obtained and patient referred for chest x-ray. Labs reveal patient's known renal failure with a creatinine of 5.1. BUN is 32. Sodium 139, potassium 5.3, chloride 97, bicarb 32. Troponin is indeterminate at 0.07, BNP >35,000. CXR: Mild interstitial edema. No pneumonia. Discussed with the patient and his admission to the hospital for ongoing management and dialysis. Discussed with him that this would mandate transfer given the lack of inpatient dialysis here at [facility]. Patient states he wishes to be discharged and will follow-up with dialysis tomorrow. Discussed with him that this would be against our medical advice. He and his understand return precautions to the ER in the interim. Lab Data Lab results reviewed: Yes I reviewed the patient's lab results. ECG Data Attestation: I personally reviewed and interpreted this ECG (s) as follows: Interpretation: Normal sinus rhythm, rate of 90, the QRS is narrow, there is no ST segment elevation, there is nonspecific T wave abnormality present in aVL. HPI General Mode of arrival: wheelchair . Date/Time Provider Initiated Documentation: 05/17/19 13:24 . Limitations to Documentation: no limitations . Information obtained by: patient and family . History of Present Illness 73 year old M presents to the emergency department with the chief complaint of SOB worse over 2 days time, normal dialysis yesterday, described as moderate, and is localized to the chest. Patient reports no radiation. Patient started experiencing this day(s) and it has been constant. No relieving factors improve symptom(s), No exacerbating factors reported . Patient notes denies chest pain, cough and fever/chills. Patient did receive the following treatments prior to arrival, none Related Data Home Medications Medication Instructions Recorded Confirmed simvastatin 40 mg PO DAILY 03/14/14 05/17/19 folic acid 1 mg PO DAILY 06/28/15 05/17/19 omeprazole 20 mg PO DAILY 06/28/15 05/17/19 tamsulosin 2 tab PO HS 02/05/16 05/17/19 Carboxymethylcellulose Sodium 1 drp OPHTHALMIC QID PRN PRN 02/02/18 05/17/19 [Lubricant Eye Drop] allopurinol 200 mg PO DAILY 02/02/18 05/17/19 calcium acetate 667 mg PO . DIRECTED 02/02/18 05/17/19 ferrous sulfate [Feosol] 325 mg PO TID 02/02/18 03/07/18 hydrocodone-acetaminophen 1 ea PO TID PRN PRN 02/02/18 05/17/19 hydroxychloroquine 200 mg PO BID 02/02/18 05/17/19 nifedipine 60 mg PO DAILY 02/02/18 05/17/19 sodium citrate-citric acid 473 ml PO HS 02/02/18 05/17/19 [Cytra-2] acetaminophen [Tylenol Arthritis 650 mg PO PRN PRN 03/07/18 03/07/18 Pain] fluticasone propionate [Flovent 03/07/18 Diskus] Lactobacillus acidophilus 1 PO DAILY 05/17/19 amlodipine 5 mg PO DAILY 05/17/19 05/17/19 collagenase clostridium histo. 1 applic TOPICAL DAILY 05/17/19 05/17/19 diclofenac sodium 4 g TOPICAL BID PRN 05/17/19 05/17/19 fluticasone propionate 1 spray INTRANASAL Q12H 05/17/19 05/17/19 lidocaine 1 patch TOPICAL DAILY 05/17/19 05/17/19 paraffin applic MISCELLANEOUS QID 05/17/19 Allergies Allergy/AdvReac Type Severity Reaction Status Date / Time Penicillins Allergy Severe Swelling/Ed Unverified 05/17/19 13:48 shantell dicloxacillin Allergy [facility] Unverified 05/17/19 13:48 terazosin Allergy per [facility] Unverified 05/17/19 13:48 General Stated Complaint: SOB AMADA: 2 Review of Systems Narrative: 6 systems reviewed and otherwise negative. Denies weight gain. States dry weight is 230 to 235 pounds [facility] Social History Smoking/Tobacco Use Status: Former Tobacco Use Alcohol Intake: never Drug use: Never Substance use type: does not use Do you feel safe at home: Yes Do you feel safe in your relationship?: Yes Exam Narrative Exam Narrative: GEN: awake, alert, oriented 3. Pleasant, well groomed, interactive. HEAD: Normocephalic, atraumatic ENT: Mucous membranes moist, oropharynx unremarkable, External ear exam unremarkable EYES: PERRL, EOMI NECK: Full ROM, no JACQUIE, no menigismus CHEST/RESP: Nontender, clear to auscultation bilateral, no wheeze/rhonchi/rales CARDIOVASCULAR: RRR, no murmur, rub adelso. 2+ Rad pulse bilateral ABDOMEN: Soft, nontender, no mass. +Bowel sounds EXT: Full ROM, no edema, no rash. Right upper extremity humerus with AV fistula, positive thrill Neuro: Grossly normal neurologic exam, conversant, interactive. Psych: Speech fluent, thoughts congruent, affect normal Course Vital Signs Vital signs: Vital Signs Temperature 36.7 C 05/17/19 13:18 Pulse 99 H 05/17/19 13:18 Blood Pressure 160/81 H 05/17/19 13:18 Pulse Oximetry 93 L 05/17/19 13:18 Temperature 36.7 C 05/17/19 13:18 Temperature Source Skin 05/17/19 13:18 Pulse 99 H 05/17/19 13:18 Blood Pressure 160/81 H 05/17/19 13:18 Blood Pressure Position Sitting 05/17/19 13:18 Pulse Oximetry 93 L 05/17/19 13:18 Oxygen Delivery Method Nasal Cannula 05/17/19 13:25 Oxygen Flow Rate 2 05/17/19 13:25 Pain Level 6 05/17/19 13:18
[2019-05-17 14:23] LABS: Abs Immature Grans 0.05 k/cumm (0.0-0.09); Absolute Basophil Count 0.02 k/cumm (0.0-0.2); Absolute Eosinophil Count 0.11 k/cumm (0.0-0.7); Absolute Lymphocyte Count 0.69 k/cumm (1.2-3.4); Absolute Monocyte Count 0.79 k/cumm (0.11-0.7); Absolute Neutrophil Count 6.13 k/cumm (1.2-6.7); Basophils % 0.3; Eosinophils % 1.4; HCT 36.9 % (40.0-50.0); HGB 11.1 g/dL (13.5-17.5); Immature Grans % 0.6; Lymphocytes % 8.9; Mean Corp. HGB Concentration 30.1 g/dL (32.0-36.0); Mean Corpuscular Hemoglobin 32.6 pg (27.0-33.0); Mean Corpuscular Volume 108.5 fL (80-95); Mean Platelet Volume 8.9 fL (8.0-11.0); Monocytes % 10.1; Neutrophils % 78.7; Platelet Count 317 x1000/uL (130-400); RBC Distribution Width 15.4 % (11.8-14.1); White Blood Cell Count 7.79 k/cumm (4.4-10.8)
[2019-05-17 14:37] LABS: ALT 17 U/L (16-63); AST 15 U/L (15-37); Albumin 3.4 g/dL (3.4-5.0); Alkaline Phosphatase 98 U/L (46-116); Anion Gap 9.6 mmol/L (3-11); BUN 32 mg/dL (7-18); Bilirubin, Total 0.3 mg/dL (0.2-1.0); CO2 32.4 mmol/L (21.0-32.0); Calcium 9.7 mg/dL (8.5-10.1); Chloride 97 mmol/L (98-107); Estimated GFR 11.11 (mL/min/1.73m2); Glucose 95 mg/dL (70-100); Magnesium 2.1 mg/dL (1.8-2.4); Potassium 5.3 mmol/L (3.5-5.1); Sodium 139 mmol/L (136-145); Total Protein 8.1 g/dL (6.4-8.2)
[2019-05-17 14:40] LABS: CREATININE 5.15 mg/dL (0.70-1.30)
[2019-05-17 14:41] LABS: Troponin I 0.07 ng/mL (0.00-0.06)
[2019-05-17 14:52] LABS: Diff Comment RBC Morph Reviewed
[2019-05-17 14:53] LABS: Anisocytosis 1+; Hypochromasia 1+; Macrocytosis 2+; Polychromasia Present
[2019-05-17 14:54] LABS: Poikilocytes 1+
--- NOTE | 2019-05-17 15:17 | DI.RAD_ITS ---
EXAM: XR CHEST 2V PA LATERAL INDICATION: SOB, dialysis pt. COMPARISON: XR CHEST 2V PA LATERAL from 03/07/2018 TECHNIQUE: 2D digital imaging was performed. FINDINGS: The heart is mildly enlarged but stable. There is prominence of the pulmonary vasculature suspicious for pulmonary edema. No consolidating infiltrate is present. There is a small amount of fluid in t he fissures. No pneumothorax is identified. Degenerative changes are seen in the spine. IMPRESSION: Findings suggestive of mild pulmonary venous congestion. The findings were discussed with the emergency department on the date of the examination
[2019-05-17 15:42] LABS: NT-proBNP > 35000 pg/mL
== END 2019-05-17 17:03 | disposition left against medical advice (07) ==
PROVIDERS: Emergency Provider Emergency Medicine
DX: E87.79 Other fluid overload (principal); N18.6 End stage renal disease; Z99.2 Dependence on renal dialysis
CPT/HCPCS: 36415; 80053; 93005; 99285; 71046; 83735; 83880; 84484; 85025; 93010; 99284

== ENCOUNTER 2020-04-10 20:37 | Emergency (ER) | payer MEDICARE, OTHER, SELFPAY ==
--- NOTE | 2020-04-10 20:30 | DI.CT_ITS ---
EXAM: CT HEAD CERVICAL SPINE WO CLINICAL HISTORY: fall with head injury. TECHNIQUE: Imaging Protocol: Axial computed tomography images with coronal and sagittal reformatted images were created and reviewed COMPARISON: No exams were available for comparison FINDINGS: CT Head: Ventricles and Extra axial spaces: Normal in size and morphology for the patient's age. Hemorrhage: None. Cerebral parenchyma: There are areas of decreased attenuation in the white matter consistent with sma ll vessel ischemic disease. No acute territorial infarct. Midline shift: None. Brainstem/Cerebellum: Normal. Calvarium: Normal. Visualized Paranasal sinuses/Mastoids: Clear. Soft Tissues: There is a small right scalp hematoma. CT Cervical Spine: Bones: No acute fracture or subluxation. The bones are osteopenic. Multilevel degenerative changes a re seen throughout the cervical spine. There are Schmorl's nodes at the superior endplates of C5 and T1. Soft Tissues: Unremarkable. Lung Apices: Clear. IMPRESSION: 1. No acute intracranial process. 2. No acute fracture or subluxation in the cervical spine. RADIATION DOSE DELIVERED: 1,482.55mGy.cm Total DLP DATA REPOSITORY: All CT scans at this facility are submitted to the National Radiology Data Registry (NRDR) Dose Index Registry (DIR) with the [employer] ([employer]). RADIATION OPTIMIZATION: All CT scans at this facility use at least one of these dose optimization te chniques: automated exposure control; mA and/or kV adjustment per patient size (includes targeted exa ms where dose is matched to clinical indication); or iterative reconstruction.
[2020-04-10 20:39] VITALS: BP 142/77; PULSE 92; RESP 20; TEMP 36.6; O2SAT 94
--- NOTE | 2020-04-10 21:00 | DI.RAD_ITS ---
EXAM: XR HIP RT COMPLETE AP PELVIS INDICATION: fall, rt hip pain. COMPARISON: CR RT HIP COMPLETE AP PELVIS from 04/08/2014 TECHNIQUE: 2D digital imaging was performed. FINDINGS: No definite fracture or dislocation in the right hip is identified. Degenerative changes are seen in the hips bilaterally. There are degenerative changes again seen in the lower lumbar spine. The oss eous protuberance arising from the right iliac bone is unchanged compared to the prior examination. Suture material is seen overlying the sacrum. The soft tissues are unremarkable. IMPRESSION: No definite fracture or dislocation. If there is continued concern, a CT scan and/or MRI should be c onsidered for further evaluation. DATA REPOSITORY: RADIATION DOSE DELIVERED:
--- NOTE | 2020-04-10 21:00 | DI.RAD_ITS ---
EXAM: XR SHOULDER RT COMPLETE 2+V CLINICAL HISTORY: fall, pain in R shoulder, known arthritis. TECHNIQUE: 2D digital imaging was performed. COMPARISON: No previous for comparison. FINDINGS: BONES: No acute fracture is present. No bony destructive lesion is seen. JOINTS: Severe advanced degenerative changes are seen at the glenohumeral joint. There is loss of vo lume of the humeral head, narrowing of the glenohumeral joint space, subchondral sclerosis and cysts, and osteophytes present. Degenerative changes are seen at the acromioclavicular joint. SOFT TISSUE: Dystrophic calcification is seen in the soft tissues. IMPRESSION: 1. No acute fracture or dislocation. 2. 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 DATA REPOSITORY: RADIATION DOSE DELIVERED:
--- NOTE | 2020-04-10 22:06 | ED.GENADUL_ITS ---
Discharge Plan Disposition Patient Disposition: HOME Condition: Good Discharge Details Clinical Impression: Chronic arthritis, Fall, Contusion of scalp Primary Care Provider: [facility] ED Provider: Suhail Mustafa Home Meds and New Rx's Prescriptions: Continued simvastatin 40 MG tablet 40 mg PO DAILY RF: 0 folic acid 1 MG tablet 1 mg PO DAILY RF: 0 omeprazole 20 MG tablet,delayed release (DR/EC) 20 mg PO DAILY RF: 0 tamsulosin 0.4 MG capsule 2 tab PO HS RF: 0 nifedipine 30 MG tablet extended release 60 mg PO DAILY RF: 0 allopurinol 100 MG tablet 200 mg PO DAILY RF: 0 sodium citrate-citric acid [Cytra-2] 473 ML solution 473 ml PO HS RF: 0 hydrocodone-acetaminophen 1 EACH tablet 1 ea PO TID PRN PRNRF: 0 ferrous sulfate [Feosol] 325 MG tablet 325 mg PO TID RF: 0 hydroxychloroquine 200 MG tablet 200 mg PO BID RF: 0 calcium acetate(phosphat bind) 667 MG capsule 667 mg PO . DIRECTED RF: 0 Carboxymethylcellulose Sodium [Lubricant Eye Drop] 15 ML Drops 1 drp Ophthalmic QID PRN PRNRF: 0 amlodipine 5 mg Tablet 5 mg PO DAILY RF: 0 lidocaine 5 % Adhesive Patch,Medicated 1 patch TOPICAL DAILY RF: 0 collagenase clostridium histo. 250 unit/gram Ointment 1 applic TOPICAL DAILY RF: 0 Lactobacillus acidophilus Capsule 1 PO DAILY RF: 0 fluticasone propionate 50 mcg/actuation Comfort,Suspension 1 spray INTRANASAL Q12H RF: 0 diclofenac sodium 1 % Gel 4 g TOPICAL BID PRNRF: 0 paraffin Wax MISCELLANEOUS QID RF: 0 fluticasone propionate [Flovent Diskus] 50 mcg/actuation Blister With Device RF: 0 acetaminophen [Tylenol Arthritis Pain] 650 mg Tablet Extended Release 650 mg PO PRN PRNRF: 0 Discharge Instructions Additional Instructions: At this time there is no evidence of fracture in your skull, neck, arm or hips. You do have chronic severe arthritis so. Please take your home pain medications as directed. Please follow-up closely with your engineering specialist at the [place]. If you notice any worsening of your symptoms, or any new symptoms such as vomiting, diarrhea, fever, chills, shortness of breath, chest pain, numbness, weakness, or fainting , please return immediately to the emergency department for reevaluation. Please follow up with your primary care provider as soon as possible for reassessment and reevaluation. As always, it was a pleasure participating in your medical care today. Referrals: [facility] [Primary Care Provider] - Medical Decision Making 74-year-old male with a past medical history dialysis with fistula in the right arm, chronic notable arthritis of his shoulders bilaterally, not on blood thinners who presents today for evaluation of fall. Patient states that he was walking to fill his cup up with ice when his foot caught on the ground, and he had a mechanical trip and fall and landed on his right side and did hit his head. He denies any loss of consciousness. He was helped up by his . He complains of pain in his right shoulder right hip mild pain in his right head. No pain in the neck or back. He describes the presence of chronic pain in these areas but states that it feels slightly worse at this time. He denies any numbness or tingling, he denies any vision changes, he denies any blood thinner use. No other complaints at this time. Physical exam demonstrates notable restricted motion in the right shoulder, and mild restricted motion in the right hip, both of which the patient attributes to chronic components, he has tenderness with movement stating that this is also chronic but worse than normal. No midline cervical thoracic or lumbar spine tenderness. No neurologic deficits on exam. Mild contusion over the right forehead. Signs and symptoms are concerning for chronic severe arthritis, with worsening secondary to fall. However due to patient's age exam and risk factors will get x-ray for further evaluation. Patient does not want any thing for pain at this time. FINDINGS: Bones/joints: Severe glenohumeral joint degenerative disease. No acute fracture or dislocation. Moderate AC joint degeneration. Soft tissues: Soft tissue calcification in the deltoid muscle of chronic appearance. This may reflect previous myositis or old trauma with dystrophic calcium. IMPRESSION: 1. Severe arthritic degeneration of the right glenohumeral joint. 2. No acute fracture or dislocation. Thank you for allowing us to participate in the care of your patient. Dictated and Authenticated by: Antonio Mathews MD 04/10/2020 10:30 PM Eastern Time ([place] & [place]) FINDINGS: Bones/joints: Evnp-cm-[id number] arthritic degeneration of the right hip joint. No acute fracture. No dislocation. Lumbosacral spine degenerative disease. No pelvic fracture or diastasis. Irregularly contoured rim like hyperdense focus overlying the right iliac wing. This is of uncertain significance. Recommend clinical correlation. This may represent an implanted device. This is not appear to represent an acute bony process. This measures approximately 8.7 x 4.4 cm. Soft tissues: Unremarkable. IMPRESSION: 1. Ybos-mt-[id number] arthritic features of the right hip joint. 2. No acute fracture or dislocation. 3. Rim like calcified-appearing focus overlying the right iliac wing is of uncertain significance. Recommend clinical correlation. Thank you for allowing us to participate in the care of your patient. Dictated and Authenticated by: Antonio Mathews MD 04/10/2020 10:33 PM Eastern Time ([place] & [place]) FINDINGS: Brain: There is diffuse cerebral atrophy concordant with the patient's age. Chronic small vessel deep white matter ischemic disease is suggested by areas of patchy white matter low attenuation. No intracranial hemorrhage. No acute large territory CVA. No mass. No acute edema. No acute intracranial abnormality. Cerebral ventricles: No ventriculomegaly. Bones/joints: Unremarkable. No acute fracture. Paranasal sinuses: Visualized sinuses are unremarkable. No fluid levels. Mastoid air cells: Visualized mastoid air cells are well aerated. Soft tissues: Small right forehead region scalp contusion. No foreign body.. IMPRESSION: 1. No acute intracranial abnormality. 2. Age-appropriate atrophy and chronic small vessel deep white matter ischemia. 3. Mild right forehead scalp contusion/hematoma. 4. No skull fracture. FINDINGS: Vertebrae: No acute fracture. Normal alignment. Osteopenia. Multilevel degenerative disc and joint disease. Schmorl's node superior endplate C5 and T1. Discs/Spinal canal/Neural foramina: No significant disc protrusion. No severe spinal canal stenosis. Severe right foraminal stenosis at C3-C4 from osteophytic encroachment. Severe left foraminal stenosis at C5-C6 from osteophytic encroachment. Soft tissues: Unremarkable. Lungs: Lung apices are normal. IMPRESSION: 1. Degenerative cervical spine disease. 2. Osteopenia. 3. No acute fracture or dislocation. Thank you for allowing us to participate in the care of your patient. Dictated and Authenticated by: Antonio Mathews MD 04/10/2020 10:39 PM Eastern Time ([place] & [place]) HPI General Date/Time Provider Initiated Documentation: 04/10/20 20:40 . HPI Narrative: 74-year-old male with a past medical history dialysis with fistula in the right arm, chronic notable arthritis of his shoulders bilaterally, not on blood thinners who presents today for evaluation of fall. Patient states that he was walking to fill his cup up with ice when his foot caught on the ground, and he had a mechanical trip and fall and landed on his right side and did hit his head. He denies any loss of consciousness. He was helped up by his . He complains of pain in his right shoulder right hip mild pain in his right head. No pain in the neck or back. He describes the presence of chronic pain in these areas but states that it feels slightly worse at this time. He denies any numbness or tingling, he denies any vision changes, he denies any blood thinner use. No other complaints at this time. Related Data Home Medications Medication Instructions Recorded Confirmed simvastatin 40 mg PO DAILY 03/14/14 05/17/19 folic acid 1 mg PO DAILY 06/28/15 05/17/19 omeprazole 20 mg PO DAILY 06/28/15 05/17/19 tamsulosin 2 tab PO HS 02/05/16 05/17/19 Carboxymethylcellulose Sodium 1 drp OPHTHALMIC QID PRN PRN 02/02/18 05/17/19 [Lubricant Eye Drop] allopurinol 200 mg PO DAILY 02/02/18 05/17/19 calcium acetate(phosphat bind) 667 mg PO . DIRECTED 02/02/18 05/17/19 ferrous sulfate [Feosol] 325 mg PO TID 02/02/18 03/07/18 hydrocodone-acetaminophen 1 ea PO TID PRN PRN 02/02/18 05/17/19 hydroxychloroquine 200 mg PO BID 02/02/18 05/17/19 nifedipine 60 mg PO DAILY 02/02/18 05/17/19 sodium citrate-citric acid 473 ml PO HS 02/02/18 05/17/19 [Cytra-2] acetaminophen [Tylenol Arthritis 650 mg PO PRN PRN 03/07/18 03/07/18 Pain] fluticasone propionate [Flovent 03/07/18 Diskus] Lactobacillus acidophilus 1 PO DAILY 05/17/19 amlodipine 5 mg PO DAILY 05/17/19 05/17/19 collagenase clostridium histo. 1 applic TOPICAL DAILY 05/17/19 05/17/19 diclofenac sodium 4 g TOPICAL BID PRN 05/17/19 05/17/19 fluticasone propionate 1 spray INTRANASAL Q12H 05/17/19 05/17/19 lidocaine 1 patch TOPICAL DAILY 05/17/19 05/17/19 paraffin applic MISCELLANEOUS QID 05/17/19 Allergies Allergy/AdvReac Type Severity Reaction Status Date / Time Penicillins Allergy Severe Swelling/Ed Unverified 05/17/19 13:48 shantell dicloxacillin Allergy per [facility] Unverified 05/17/19 13:48 terazosin Allergy per [facility] Unverified 05/17/19 13:48 General Stated Complaint: Orthopedic AMADA: 3 Review of Systems All systems reviewed & are unremarkable except as noted in HPI and below PFSH Social History Smoking/Tobacco Use Status: Former Tobacco Use Alcohol Intake: never Drug use: Never Substance use type: does not use Do you feel safe at home: Yes Do you feel safe in your relationship?: Yes Exam Narrative Exam Narrative: 1.Const: Well-nourished, Well-developed, appearing stated age 2.Eyes: PERRL, no conjunctival injection, and symmetrical lids. 3.ENT: Atraumatic external nose and ears. Moist MM. Neck: Symmetric, trachea midline, No thyromegaly. There is no evidence of raccoon eyes, andersen sign, CSF rhinorrhea, mastoid tenderness, cranial crepitus, hemotympanum, exophthalmos, or hyphema. Patient demonstrates intact dentition with no signs of tooth avulsion or fracture, no signs of jaw deformity, no evidence of a LeFort's fracture, with an intact palate, nose and orbital region. There is no evidence of a nasal septal hematoma. No proptosis. Jaw closes symmetrically. Airway is clear. He does have a mild hematoma over the right frontal forehead, no depression, no bleeding or laceration. 4.CVS: +S1/S2, No murmurs or gallops. Peripheral pulses 2+ and equal in all extremities. Brisk capillary refill in all extremities. 5.RESP: Unlabored respiratory effort. Clear to auscultation bilaterally. No wheezes rales or rhonchi 6.GI: Soft, Nontender/Nondistended, No hepatosplenomegaly. No guarding or re bound. 7.MSK: Extremities w/o deformity. No cyanosis or clubbing, No midline cervical thoracic or lumbar spine tenderness. Patient has no palpable tenderness over the right hip or right shoulder however he has notable pain with movement and notable restriction of the right shoulder which he states is chronic. Crepitus is noted, suspect notable arthritis. No evidence of clear deformity whatsoever. Right hip is slightly tender to palpation but otherwise stable, good movement with mild to moderate restriction which seems to be symmetric. 8.Skin: Warm, Dry. No rashes or lesions. Contusion/hematoma over the forehead 9.Neuro: appliquer zigzag II-XII grossly intact. Sensation grossly intact, no focal neurologic deficits. Normal [id number]-type-rtiddj, no dysdiadochokinesia. Normal vision. 10.Psych: (AAO) x3. Appropriate mood and affect Course Vital Signs Vital signs: Vital Signs Temperature 36.6 C 04/10/20 20:39 Pulse 92 H 04/10/20 20:39 Respiratory Rate 20 04/10/20 20:39 Blood Pressure 142/77 H 04/10/20 20:39 Pulse Oximetry 94 04/10/20 20:39 Temperature 36.6 C 04/10/20 20:39 Pulse 92 H 04/10/20 20:39 Respiratory Rate 20 04/10/20 20:39 Respiratory Effort 04/10/20 20:50 Blood Pressure 142/77 H 04/10/20 20:39 Pulse Oximetry 94 04/10/20 20:39 Oxygen Delivery Method Room Air 04/10/20 20:39 Oxygen Flow Rate 0 04/10/20 20:39 Pain Level 8 04/10/20 20:50
--- NOTE | 2020-04-16 16:03 | DI.VRAD_ITS ---
PROCEDURE INFORMATION: Exam: XR Right Shoulder Exam date and time: 04/10/2020 9:43 PM Age: 74 years old Clinical indication: Other: Fall, RT shoulder pain, known arthritis TECHNIQUE: Imaging protocol: XR Right shoulder. Views: 2 or more views. COMPARISON: No relevant prior studies available. FINDINGS: Bones/joints: Severe glenohumeral joint degenerative disease. No acute fracture or dislocation. Moderate AC joint degeneration. Soft tissues: Soft tissue calcification in the deltoid muscle of chronic appearance. This may reflect previous myositis or old trauma with dystrophic calcium. IMPRESSION: 1. Severe arthritic degeneration of the right glenohumeral joint. 2. No acute fracture or dislocation. Dictated and Authenticated by: Antonio Mathews MD. Ordering:BRENTON Jang MD
--- NOTE | 2020-04-16 16:03 | DI.VRAD_ITS ---
PROCEDURE INFORMATION: Exam: CT Head Without Contrast Exam date and time: 04/10/2020 9:57 PM Age: 74 years old Clinical indication: Other: Fall with head injury TECHNIQUE: Imaging protocol: Computed tomography of the head without contrast. COMPARISON: No relevant prior studies available. FINDINGS: Brain: There is diffuse cerebral atrophy concordant with the patient's age. Chronic small vessel deep white matter ischemic disease is suggested by areas of patchy white matter low attenuation. No intracranial hemorrhage. No acute large territory CVA. No mass. No acute edema. No acute intracranial abnormality. Cerebral ventricles: No ventriculomegaly. Bones/joints: Unremarkable. No acute fracture. Paranasal sinuses: Visualized sinuses are unremarkable. No fluid levels. Mastoid air cells: Visualized mastoid air cells are well aerated. Soft tissues: Small right forehead region scalp contusion. No foreign body.. IMPRESSION: 1. No acute intracranial abnormality. 2. Age-appropriate atrophy and chronic small vessel deep white matter ischemia. 3. Mild right forehead scalp contusion/hematoma. 4. No skull fracture. PROCEDURE INFORMATION: Exam: CT Cervical Spine Without Contrast Exam date and time: 04/10/2020 9:57 PM Age: 74 years old Clinical indication: Other: Fall with head injury TECHNIQUE: Imaging protocol: Computed tomography images of the cervical spine without contrast. COMPARISON: No relevant prior studies available. FINDINGS: Vertebrae: No acute fracture. Normal alignment. Osteopenia. Multilevel degenerative disc and joint disease. Schmorl's node superior endplate C5 and T1. Discs/Spinal canal/Neural foramina: No significant disc protrusion. No severe spinal canal stenosis. Severe right foraminal stenosis at C3-C4 from osteophytic encroachment. Severe left foraminal stenosis at C5-C6 from osteophytic encroachment. Soft tissues: Unremarkable. Lungs: Lung apices are normal. IMPRESSION: 1. Degenerative cervical spine disease. 2. Osteopenia. 3. No acute fracture or dislocation. Dictated and Authenticated by: Antonio Mathews MD. Ordering:MAYLIN Stanford MD
--- NOTE | 2020-04-16 16:03 | DI.VRAD_ITS ---
PROCEDURE INFORMATION: Exam: XR Right Hip with Pelvis when Performed Exam date and time: 04/10/2020 9:40 PM Age: 74 years old Clinical indication: Other: Fall, RT hip pain TECHNIQUE: Imaging protocol: XR Right hip with pelvis when performed. Views: 2 or 3 views. COMPARISON: No relevant prior studies available. FINDINGS: Bones/joints: Epsn-om-libmioyk arthritic degeneration of the right hip joint. No acute fracture. No dislocation. Lumbosacral spine degenerative disease. No pelvic fracture or diastasis. Irregularly contoured rim like hyperdense focus overlying the right iliac wing. This is of uncertain significance. Recommend clinical correlation. This may represent an implanted device. This is not appear to represent an acute bony process. This measures approximately 8.7 x 4.4 cm. Soft tissues: Unremarkable. IMPRESSION: 1. Nybr-ss-ggbknury arthritic features of the right hip joint. 2. No acute fracture or dislocation. 3. Rim like calcified-appearing focus overlying the right iliac wing is of uncertain significance. Recommend clinical correlation. Dictated and Authenticated by: Antonio Mathews MD. Ordering:BRENTON Jang MD
== END 2020-04-10 23:15 | disposition home or self-care (01) ==
PROVIDERS: Emergency Provider Student in an Organized Health Care Education/Training Program
DX: S00.83XA Contusion of other part of head, initial encounter (principal); W01.198A Fall on same level from slipping, tripping and stumbling with subsequent striking against other object, initial encounter; M15.9 Polyosteoarthritis, unspecified
CPT/HCPCS: 99284; 70450; 72125; 73030; 73502

== ENCOUNTER 2020-05-11 13:11 | Emergency (ER) | payer MEDICARE, OTHER, SELFPAY ==
--- NOTE | 2020-05-11 13:15 | DI.US_ITS ---
EXAM: US FISTULA EVALUATION DIALYSIS CLINICAL HISTORY: swelling TECHNIQUE: Ultrasound performed using standard protocol. COMPARISON: No exams were available for comparison FINDINGS: Limited evaluation of the forearm was obtained to evaluate swelling. Patient reportedly has previous ly revised dialysis fistula. There is heterogeneous predominantly fluid collection of the antecubita l fossa and associated collection in the medial forearm to upper arm measuring about 4 x 3 x 8 cm aide meter. Findings are highly suggestive of hematoma. Findings are suggestive of a leaking fistula or pseudoaneurysm, further vascular evaluation and correlation with the patient's prior studies is recom mended. IMPRESSION: DATA REPOSITORY:
[2020-05-11 13:29] VITALS: BP 144/71; PULSE 97; RESP 16; TEMP 36.1; O2SAT 95
--- NOTE | 2020-05-11 13:43 | ED.GENADUL_ITS ---
Discharge Plan Disposition Patient Disposition: HOME Condition: Fair Discharge Details Clinical Impression: Hematoma, Leakage of surgically created arteriovenous fistula Primary Care Provider: Unknown,Unknown ED Provider: Kia Cantor Home Meds and New Rx's Prescriptions: Continued simvastatin 40 MG tablet 40 mg PO DAILY RF: 0 tamsulosin 0.4 MG capsule 2 tab PO HS RF: 0 nifedipine 30 MG tablet extended release 60 mg PO DAILY RF: 0 allopurinol 100 MG tablet 200 mg PO DAILY RF: 0 sodium citrate-citric acid [Cytra-2] 473 ML solution 473 ml PO HS RF: 0 hydrocodone-acetaminophen 1 EACH tablet 1 ea PO TID PRN PRNRF: 0 ferrous sulfate [Feosol] 325 MG tablet 325 mg PO TID RF: 0 hydroxychloroquine 200 MG tablet 200 mg PO BID RF: 0 Carboxymethylcellulose Sodium [Lubricant Eye Drop] 15 ML Drops 1 drp Ophthalmic QID PRN PRNRF: 0 amlodipine 5 mg Tablet 5 mg PO DAILY RF: 0 lidocaine 5 % Adhesive Patch,Medicated 1 patch TOPICAL DAILY RF: 0 collagenase clostridium histo. 250 unit/gram Ointment 1 applic TOPICAL DAILY RF: 0 Lactobacillus acidophilus Capsule 1 PO DAILY RF: 0 fluticasone propionate 50 mcg/actuation [place],Suspension 1 spray INTRANASAL Q12H RF: 0 diclofenac sodium 1 % Gel 4 g TOPICAL BID PRNRF: 0 paraffin Wax MISCELLANEOUS QID RF: 0 Flovent Diskus 50 mcg/actuation Blister With Device RF: 0 acetaminophen [Tylenol Arthritis Pain] 650 mg Tablet Extended Release 650 mg PO PRN PRNRF: 0 prednisone 2.5 mg Tablet 2.5 mg PO . DIRECTED TAPER RF: 0 colchicine [Colcrys] 0.6 mg tablet 0.6 mg PO .TWICE WEEKLY RF: 0 sevelamer carbonate 800 mg tablet 1,600 mg PO BID RF: 0 Discharge Instructions Instructions: Hematoma (ED) Additional Instructions: Please keep Gavino wrap on until taken down by dialysis tomorrow. After receiving dialysis tomorrow, please have them replaced. Please call vascular surgery at the [facility] tomorrow to schedule follow-up appointment and reevaluation. You may require further imaging for reassessment of your hematoma. Please monitor for signs of infection and compartment syndrome as discussed. This includes redness, warmth, increased pain, fever/chills, numbness/tingling. If you develop these or other new/worsening symptoms please seek care urgently once again. Please try to keep your arm elevated. May continue with pain management as previously prescribed. You were given your nighttime dosing of pain management here. Please follow-up with dialysis as well as vascular surgery through the [facility] tomorrow. Referrals: [facility] [Outside] Discharge Data Discharge Date/Time-TO BE ENTERED AT DEPARTURE: 05/11/20 18:54 Medical Decision Making <Kait Yuen - Last Filed: 05/14/20 09:05> 74-year-old male presents to the ER with chief complaint of right arm swelling. Patient is a dialysis patient has a fistula noted to his right upper extremity. He last had dialysis on Monday where it was accessed, shortly thereafter he began with a small amount of bruising and swelling noted to his extremity. He reports this morning swelling and ecchymosis has worsened. He does have surrounding ecchymosis noted from his antecubital up into his axilla and right sided chest. He has 2+ pitting edema noted to distal extremity, radial pulses intact and there is a thrill noted over the fistula. He denies any recent falls. He states that he did fall approximately 1 month ago. 1429: Spoke with Dr. Byrne regarding US result, positive for leak of fistula. Limited evaluation of the forearm was obtained to evaluate swelling. Patient reportedly has previously revised dialysis fistula. There is heterogeneous predominantly fluid collection of the antecubital fossa and associated collection in the medial forearm to upper arm measuring about 4 x 3 x 8 cm diameter. Findings are highly suggestive of hematoma. Findings are suggestive of a leaking fistula or pseudoaneurysm, further vascular evaluation and correlation with the patient's prior studies is recommended. 1446: Spoke with patient regarding US results. [facility] paged for possible patient transfer. Spoke with patients , who verbalizes understanding of plan of care. 1450: Patient is refusing IV but is willing to have blood drawn. 1503: [facility] reports [facility] at [facility]. Will speak to [facility] transfer center. 1509: Spoke with transfer center at [facility], they report there are no beds at this time, vascular to call me back. 1509: will call [facility], spoke with transfer center, they will call me back. 1541: Spoke again with [facility] transfer center regarding patient, they will call back. Care is to be handed off to oncoming provider Kia DOBSON discussed patient case and details pending transfer and exceptions for eval of possibly hemorrhaging fistula. 1603: Spoke with Dr. Stewart at [facility] vascular surgery who agrees to see patient, transfer center to call back with nephrology or hospitalist. Dr. Melisa Roberson took call from [facility] and spoke with Dr. López at [facility] who agrees to evaluate patient in ED. 1613: Call made to [facility], regarding ED to ED transfer, they will call back. Care to be handed off to Kia pending transfer. At the time of this dictation patient was sitting in wheelchair, alert and oriented hemodynamically stable. <OLYA Wolfe - Last Filed: 05/11/20 19:35> Can transition myself from Michelle Yuen NP with disposition pending. Please see her note for initial work-up, history and exam. In brief, patient is a 74-year-old gentleman who came in with concern for swelling to his right upper extremity. Patient is a dialysis center and does have his fistula in this area. He states that when they were accessing his fistula it did not feel right and since that time he has had increased discoloration and discomfort. [facility] yesterday who advised that the patient try to elevate his extremity. He comes in today as the symptoms have continued to persist and increase. Ultrasound was performed here showing a fluid collection of the antecubital fossa 4 x 3 x 8 cm suggestive of a hematoma. Concern for weekly fistula or pseudoaneurysm advise vascular evaluation. At the transition of care, Mrs. Galvez had just spoken with [facility] vascular surgery who advised the patient should go to the emergency department for evaluation. Shortly after her departure, I heard back from the transfer center who advised that the emergency department was busy and that the patient would not be able to be evaluated there. She got a recheck to the [facility] who advised that they were unable to accept any patients in transfer. Called the [facility] once again. Try to visit her vascular surgeon advised at this time [facility] is covering their vascular surgery. Will await [facility] call back. Spoke with [facility], they are unable to accept the patient. However, I did reach out to the [facility] and advised that they would be able to potentially take the patient tomorrow in transfer. I called back [facility] as I would like some guidance on how to treat the arm acutely as the patient has increased discomfort and continues to swell. He continues to have superficial development of pain patient. He limited range of motion at the elbow. She has ecchymosis extends up onto the right side of the chest wall and he is firm on the medial aspect of the right elbow. He does have a palpable thrill. Consulted with Dr. Sykes. He recommended wrapping the arm from hand to axilla. He does not see flow in the collection, reviewed the imaging. Advised wrapping this for the evening. He advised that they would wrap this, re-image tomorrow. He advised accessing away from this spot for dialysis tomorrow. Can continue to use the fistula even tomorrow as long as the entry point is away from the access point yesterday. Gavino-wraps applied as directed. Requested consultation with [facility]. Expecting call back from vascular surgery, Dr. Mendez. Consulted with Dr. Mendez. He advised that the patient has a palpable thrill, it is likely okay for him to get dialysis despite the large hematoma. He advised that the reason the patient would need to have an intervention would be if there is evidence of infection or compartment syndrome which are not evident on exam at this time. He advised that if they were unable to access this for dialysis tomorrow he may need a different access point and that if the [facility] is unable to see him in a timely manner and he would be happy to see him at [facility]. He did agree with wrapping the arm. He advises to keep this on until dialysis tomorrow and then the arm be rewrapped after dialysis. There does not seem to be any immediate intervention warranted tonight, plan to discharge the patient home with the arm wrap. Plan for dialysis tomorrow as an outpatient. I have spoken with the patient and , Mrs. Dean is to be reached at [phone]. I have asked that they contacted the vascular team tomorrow to discuss close follow-up as the patient will likely need an outpatient ultrasound in the future for reevaluation. Return precautions were discussed. All of their questions and concerns were addressed, they are in agreement with this plan. HPI <Kait Yuen - Last Filed: 05/14/20 09:05> General Mode of arrival: wheelchair . Date/Time Provider Initiated Documentation: 05/11/20 13:15 . Limitations to Documentation: no limitations . Information obtained by: patient . HPI Narrative: 74-year-old male presents to the ER with chief complaint of right arm swelling. Patient is a dialysis patient has a fistula noted to his right upper extremity. He last had dialysis on Monday where it was accessed, shortly thereafter he began with a small amount of bruising and swelling noted to his extremity. He reports this morning swelling and ecchymosis has worsened. He does have surrounding ecchymosis noted from his antecubital up into his axilla and right sided chest. He has 2+ pitting edema noted to distal extremity, radial pulses intact and there is a thrill noted over the fistula. He denies any recent falls. He states that he did fall approximately 1 month ago. Related Data Home Medications Medication Instructions Recorded Confirmed simvastatin 40 mg PO DAILY 03/14/14 05/13/20 tamsulosin 2 tab PO HS 02/05/16 05/13/20 Carboxymethylcellulose Sodium 1 drp OPHTHALMIC QID PRN PRN 02/02/18 05/13/20 [Lubricant Eye Drop] allopurinol 200 mg PO DAILY 02/02/18 05/11/20 ferrous sulfate [Feosol] 325 mg PO TID 02/02/18 05/13/20 hydrocodone-acetaminophen 1 ea PO TID PRN PRN 02/02/18 05/13/20 hydroxychloroquine 200 mg PO BID 02/02/18 05/13/20 nifedipine 60 mg PO DAILY 02/02/18 05/13/20 sodium citrate-citric acid 473 ml PO HS 02/02/18 05/13/20 [Cytra-2] Flovent Diskus 03/07/18 acetaminophen [Tylenol Arthritis 650 mg PO PRN PRN 03/07/18 05/13/20 Pain] Lactobacillus acidophilus 1 PO DAILY 05/17/19 amlodipine 5 mg PO DAILY 05/17/19 05/13/20 collagenase clostridium histo. 1 applic TOPICAL DAILY 05/17/19 05/13/20 diclofenac sodium 4 g TOPICAL BID PRN 05/17/19 05/13/20 fluticasone propionate 1 spray INTRANASAL Q12H 05/17/19 05/11/20 lidocaine 1 patch TOPICAL DAILY 05/17/19 05/11/20 paraffin applic MISCELLANEOUS QID 05/17/19 colchicine [Colcrys] 0.6 mg PO .TWICE WEEKLY 05/11/20 05/13/20 prednisone 2.5 mg PO . DIRECTED TAPER 05/11/20 05/13/20 sevelamer carbonate 1,600 mg PO BID 05/11/20 05/13/20 Allergies Allergy/AdvReac Type Severity Reaction Status Date / Time Penicillins Allergy Severe Swelling/Ed Unverified 05/13/20 12:58 shantell dicloxacillin [facility]ergy per [facility] Unverified 05/13/20 12:58 terazosin Allergy per [facility] Unverified 05/13/20 12:58 General Stated Complaint: Vascular AMADA: 2 Review of Systems <Kait Yuen - Last Filed: 05/14/20 09:05> Narrative: Constitutional: Negative for weight loss, alert and oriented, well groomed, normal body habitus, appears comfortable. HEENT: Denies trauma, headaches, blurry vision, nasal discharge, sore throat, trouble swallowing. Chest: Denies chest pain, palpitations, irregular rhythm, hypertension. Respiratory: Denies Shortness of breath, cough, hemoptysis. GI: Denies abdominal pain, nausea, vomiting, diarrhea, constipation. Extremities: Dialysis fistula noted to the right upper extremity, swelling and ecchymosis noted. : Denies dysuria, hematuria, flank pain, rectal bleeding. Neuro: Denies dizziness, blurry vision, weakness, syncope, headache or facial numbness. Hematologic: Denies easy bruising, intolerance to heat or cold, hair loss. PFSH <Kait Yuen - Last Filed: 05/14/20 09:05> Social History Smoking/Tobacco Use Status: Former Tobacco Use Smoking risk assessment performed?: Yes Alcohol Intake: never Drug use: Never Substance use type: does not use Do you feel safe at home: Yes Do you feel safe in your relationship?: Yes Exam <Kait Yuen - Last Filed: 05/14/20 09:05> Narrative Exam Narrative: Constitutional: Alert and oriented x3. Appears stated age. Normal body habitus. Head: Normocephalic, no trauma. Eyes: Pupils PERRLA, Red reflex noted, EOM's intact. Eyelids symmetrical without lesions, discharge, or swelling. ENT: Bilateral TM's WNL, External ear normal to inspection, no mastoid TTP, swelling, or erythema, Nasal turbinates WNL, no nasal discharge. Normal dentition, Posterior pharynx WNL, no exudate. Chest: RRR, Normal S1, S2, distal pulses intact. Resp: Lungs clear to auscultation bilaterally, no wheezes, rales, or rhonchi. Musculoskeletal: Swelling, 2+ pitting edema, ecchymosis noted to the right upper extremity. There is a dialysis fistula in place with a thrill noted over it, distal radial pulses intact. Skin: Ecchymosis noted to right upper extremity, right chest and there is a circular contusion noted to the right flank as well.. Capillary refill less than 2 sec. Neurologic: Cranial nerves II-XII intact. Alert and oriented x 3. DTR's intact. Hematologic/Lymphatic: Positive ecchymosis, no lymphadenopathy. Course <Kaitalphonso Cerdaton - [facility] Filed: 05/14/20 09:05> Vital Signs Vital signs: Vital Signs Temperature 36.1 C L 05/11/20 13:29 Pulse 97 H 05/11/20 13:29 Respiratory Rate 16 05/11/20 13:29 Blood Pressure 144/71 H 05/11/20 13:29 Pulse Oximetry 95 05/11/20 13:29 Temperature 36.1 C L 05/11/20 13:29 Temperature Source Skin 05/11/20 13:29 Pulse 97 H 05/11/20 13:29 Respiratory Rate 16 05/11/20 13:29 Respiratory Effort 05/11/20 13:33 Blood Pressure 144/71 H 05/11/20 13:29 Blood Pressure Position Sitting 05/11/20 13:29 Pulse Oximetry 95 05/11/20 13:29 Oxygen Delivery Method Room Air 05/11/20 13:29 Oxygen Flow Rate 0 05/11/20 13:29 Pain Level 5 05/11/20 13:29 Sign Out <[facility] Filed: 05/14/20 09:05> Sign Out Data: Sign Out Comment: Pending evaluation by vascular surgery for bleeding dialysis fistula. Pending transfer to [facility] or [facility]. Last updated by Kait Yuen at 05/11/20 15:51
[2020-05-11 15:23] VITALS: BP 130/67; PULSE 79; RESP 20; TEMP 36.5; O2SAT 99
[2020-05-11 15:43] LABS: Abs Immature Grans 0.08 10^3/uL (0.0-0.06); Absolute Basophil Count 0.03 10^3/uL (0.0-0.2); Absolute Lymphocyte Count 0.31 10^3/uL (1.2-3.4); Absolute Monocyte Count 0.83 10^3/uL (0.1-0.8); Absolute Neutrophil Count 6.46 10^3/uL (1.2-6.7); Basophils % 0.4; Eosinophils % 1.3; HCT 32.7 % (40.0-50.0); HGB 10.2 g/dL (13.5-17.5); MCH 33.7 pg (27.0-33.0); MCHC 31.2 % (32.0-36.0); MCV 107.9 fL (80-95); MPV 9.2 fL (8.0-11.0); Monocytes % 10.6; Neutrophils % 82.7; Nucleated RBC 0 %; Platelet Count 220 10^3/uL (130-400); RBC 3.03 10^6/uL (4.36-5.78); RDW 15.9 % (11.8-14.1); RDW-SD 62.8 fL; WBC 7.81 10^3/uL (4.4-10.8)
[2020-05-11 15:52] LABS: Diff Comment RBC Morph Reviewed
[2020-05-11 15:53] LABS: Macrocytosis 2+; Poikilocytes 1+; Polychromasia Present
[2020-05-11 16:01] LABS: INR 1.2 (0.9-1.1); Prothrombin Time 11.8 sec (9.3-11.0)
[2020-05-11 16:15] LABS: ALT 31 U/L (16-63); AST 24 U/L (15-37); Albumin 3.4 g/dL (3.4-5.0); Alkaline Phosphatase 148 U/L (46-116); Anion Gap 11.9 mmol/L (3-11); BUN 48 mg/dL (7-18); Bilirubin, Total 0.5 mg/dL (0.2-1.0); CO2 30.1 mmol/L (21.0-32.0); Calcium 9.5 mg/dL (8.5-10.1); Chloride 96 mmol/L (98-107); Estimated GFR 9.68 (mL/min/1.73m2); Glucose 104 mg/dL (74-106); Potassium 5.1 mmol/L (3.5-5.1); Sodium 138 mmol/L (136-145); Total Protein 7.4 g/dL (6.4-8.2)
[2020-05-11 16:17] LABS: CREATININE 5.79 mg/dL (0.70-1.30)
[2020-05-11 18:02] VITALS: BP 141/69; PULSE 80; RESP 16; TEMP 37.1; O2SAT 98
--- NOTE | 2020-05-11 18:09 | NUR.NOTE ---
pt provided with meal tray Nursing Note:
[2020-05-11] MEDS: Acetaminophen 325 MG TAB 650 MG PO (18:28)
[2020-05-11] MEDS: HYDROcodone 5/Acetaminophen 325 TAB PO (18:29)
[2020-05-11] MEDS: Ibuprofen 400 MG TAB PO (18:30)
[2020-05-11 18:55] VITALS: BP 141/69; PULSE 80; RESP 16; TEMP 37.1; O2SAT 98
== END 2020-05-11 18:54 | disposition home or self-care (01) ==
PROVIDERS: Registered Nurse Emergency; Emergency Provider Physician Assistant
DX: T82.530A Leakage of surgically created arteriovenous fistula, initial encounter (principal); Y84.1 Kidney dialysis as the cause of abnormal reaction of the patient, or of later complication, without mention of misadventure at the time of the procedure; M79.81 Nontraumatic hematoma of soft tissue
CPT/HCPCS: 36415; 80053; 93990; 99284; 85025; 85610

== ENCOUNTER 2020-05-13 12:33 | Emergency (ER) | payer MEDICARE, OTHER, SELFPAY ==
[2020-05-13 12:40] VITALS: BP 124/60; PULSE 85; RESP 18; TEMP 36.6; O2SAT 99
--- NOTE | 2020-05-13 13:05 | ED.GENADUL_ITS ---
Discharge Plan Disposition Patient Disposition: HOME Condition: Improving Discharge Details Clinical Impression: Hematoma Primary Care Provider: Unknown,Unknown ED Provider: Paolo Jean Baptiste Home Meds and New Rx's Prescriptions: Continued simvastatin 40 MG tablet 40 mg PO DAILY RF: 0 tamsulosin 0.4 MG capsule 2 tab PO HS RF: 0 nifedipine 30 MG tablet extended release 60 mg PO DAILY RF: 0 allopurinol 100 MG tablet 200 mg PO DAILY RF: 0 sodium citrate-citric acid [Cytra-2] 473 ML solution 473 ml PO HS RF: 0 hydrocodone-acetaminophen 1 EACH tablet 1 ea PO TID PRN PRNRF: 0 ferrous sulfate [Feosol] 325 MG tablet 325 mg PO TID RF: 0 hydroxychloroquine 200 MG tablet 200 mg PO BID RF: 0 Carboxymethylcellulose Sodium [Lubricant Eye Drop] 15 ML Drops 1 drp Ophthalmic QID PRN PRNRF: 0 amlodipine 5 mg Tablet 5 mg PO DAILY RF: 0 lidocaine 5 % Adhesive Patch,Medicated 1 patch TOPICAL DAILY RF: 0 collagenase clostridium histo. 250 unit/gram Ointment 1 applic TOPICAL DAILY RF: 0 Lactobacillus acidophilus Capsule 1 PO DAILY RF: 0 fluticasone propionate 50 mcg/actuation [place],Suspension 1 spray INTRANASAL Q12H RF: 0 diclofenac sodium 1 % Gel 4 g TOPICAL BID PRNRF: 0 paraffin Wax MISCELLANEOUS QID RF: 0 Flovent Diskus 50 mcg/actuation Blister With Device RF: 0 acetaminophen [Tylenol Arthritis Pain] 650 mg Tablet Extended Release 650 mg PO PRN PRNRF: 0 prednisone 2.5 mg Tablet 2.5 mg PO . DIRECTED TAPER RF: 0 colchicine [Colcrys] 0.6 mg tablet 0.6 mg PO .TWICE WEEKLY RF: 0 sevelamer carbonate 800 mg tablet 1,600 mg PO BID RF: 0 Discharge Instructions Instructions: Hematoma (ED) Additional Instructions: I discussed your case with Dr. Richard. She asked that she apply ice to the area tonight, may perform 20 to 30 minutes at a time. You are to attend your scheduled dialysis appointment tomorrow. Continue your regular medications. Return the emergency room for any acute concerns. You Will have ongoing migration and color change of the bruising. May elevate the arm above the level of the heart to reduce swelling. Discharge Data Discharge Date/Time-TO BE ENTERED AT DEPARTURE: 05/13/20 17:00 Medical Decision Making 74-year-old male presents from home with his . He states that following dialysis this past Monday he developed right arm swelling. He was evaluated in this emergency department on May 11 at which point an ultrasound revealed a fluid collection and evidence of leaking AV fistula. Had no details long d iscussion with vascular surgery at multiple hospitals with no firm follow-up in place. 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 Nephrology requested that the dialysis nurse come to the ER to evaluate the right upper extremity. Nursing staff from the dialysis center presented to the ED, she and I discussed the case and physical findings with on-call nephrology, Dr. Richard. She recommends a repeat laboratories and she strongly recommends transfer to [facility] for placement of dialysis catheter. Repeat ultrasound does not show any interval increase in size of hematoma. See formal report. Repeat laboratories obtained: Unchanged blood count with a hemoglobin of 10.1. Potassium within normal limits. Case discussed again with Dr Richard, patient will go home tonight, apply ice to area, he will not apply pressure. He is to follow-up in nephrology/dialysis at his normal time tomorrow. Lab Data Lab results reviewed: Yes I reviewed the patient's lab results. Labs: Laboratory Results - last 24 hr 05/13/20 05/13/20 05/13/20 15:18 15:18 15:18 WBC 8.10 RBC 2.97 L Hgb 10.1 L Hct 32.4 L MCV 109.1 H MCH 34.0 H MCHC 31.2 L RDW 16.0 H Plt Count 214 MPV 9.3 Immature Gran % 0.6 Neutrophils % 83.7 Lymphocytes % 4.1 Monocytes % 10.0 Eosinophils % 1.2 Basophils % 0.4 Nucleated RBC % 0 Absolute Neutrophils 6.78 H Absolute Lymphocytes 0.33 L Absolute Monocytes 0.81 H Absolute Eosinophils 0.10 Absolute Basophils 0.03 RBC Morphology See below Macrocytosis 3+ PT 11.7 H INR 1.2 H APTT 24.8 Sodium 139 Potassium 4.9 Chloride 97 L Carbon Dioxide 31.2 Anion Gap 10.8 BUN 33 H D Creatinine 4.83 H* Estimated GFR/1.73 m2 11.93 Glucose 88 Calcium 9.3 Magnesium 2.0 Total Bilirubin 0.7 AST 29 ALT 31 Alkaline Phosphatase 164 H Total Protein 7.7 Albumin 3.5 HPI General Mode of arrival: ambulatory . Date/Time Provider Initiated Documentation: 05/13/20 12:40 . Limitations to Documentation: no limitations . Information obtained by: patient . History of Present Illness 74 year old M presents to the emergency department with the chief complaint of Right arm bruising and swelling, AV fistula leak, described as moderate, Quality is described as dull and constant, and is localized to the right and upper extremity. Patient reports no radiation. Patient started experiencing this day(s) and it has been constant. No relieving factors improve symptom(s), No exacerbating factors reported . Patient notes other (Bruising of right arm and axilla). Patient did receive the following treatments prior to arrival, other (Gavino bandage) Related Data Home Medications Medication Instructions Recorded Confirmed simvastatin 40 mg PO DAILY 03/14/14 05/13/20 tamsulosin 2 tab PO HS 02/05/16 05/13/20 Carboxymethylcellulose Sodium 1 drp OPHTHALMIC QID PRN PRN 02/02/18 05/13/20 [Lubricant Eye Drop] allopurinol 200 mg PO DAILY 02/02/18 05/11/20 ferrous sulfate [Feosol] 325 mg PO TID 02/02/18 05/13/20 hydrocodone-acetaminophen 1 ea PO TID PRN PRN 02/02/18 05/13/20 hydroxychloroquine 200 mg PO BID 02/02/18 05/13/20 nifedipine 60 mg PO DAILY 02/02/18 05/13/20 sodium citrate-citric acid 473 ml PO HS 02/02/18 05/13/20 [Cytra-2] Flovent Diskus 03/07/18 acetaminophen [Tylenol Arthritis 650 mg PO PRN PRN 03/07/18 05/13/20 Pain] Lactobacillus acidophilus 1 PO DAILY 05/17/19 amlodipine 5 mg PO DAILY 05/17/19 05/13/20 collagenase clostridium histo. 1 applic TOPICAL DAILY 05/17/19 05/13/20 diclofenac sodium 4 g TOPICAL BID PRN 05/17/19 05/13/20 fluticasone propionate 1 spray INTRANASAL Q12H 05/17/19 05/11/20 lidocaine 1 patch TOPICAL DAILY 05/17/19 05/11/20 paraffin applic MISCELLANEOUS QID 05/17/19 colchicine [Colcrys] 0.6 mg PO .TWICE WEEKLY 05/11/20 05/13/20 prednisone 2.5 mg PO . DIRECTED TAPER 05/11/20 05/13/20 sevelamer carbonate 1,600 mg PO BID 05/11/20 05/13/20 Allergies Allergy/AdvReac Type Severity Reaction Status Date / Time Penicillins Allergy Severe Swelling/Ed Unverified 05/13/20 12:58 shantell dicloxacillin [facility] Unverified 05/13/20 12:58 terazosin Allergy per [facility] Unverified 05/13/20 12:58 General Stated Complaint: GenMedical AMADA: 3 Review of Systems Narrative: No other complaints. Dialysis Monday, , Saturdays. No fever. No numbness or weakness. 6 systems reviewed and otherwise negative [facility] Social History Smoking/Tobacco Use Status: Former Tobacco Use Smoking risk assessment performed?: Yes Alcohol Intake: never Drug use: Never Substance use type: does not use Do you feel safe at home: Yes Do you feel safe in your relationship?: Yes Exam Narrative Exam Narrative: GEN: awake, alert, oriented 3. Pleasant, well groomed, interactive. HEAD: Normocephalic, atraumatic ENT: Mucous membranes moist, oropharynx unremarkable, External ear exam unremarkable EYES: PERRL, EOMI NECK: Full ROM, no JACQUIE, no menigismus CHEST/RESP: Nontender, clear to auscultation bilateral, no wheeze/rhonchi/rales CARDIOVASCULAR: RRR, 4 out of 6 holosystolic murmur 2+ Rad pulse bilateral ABDOMEN: Soft, nontender, no mass. +Bowel sounds EXT: Full ROM, right AV fistula with thrill, ecchymosis from elbow to axilla of the right arm. Palpable radial pulse as above. Neuro: Grossly normal neurologic exam, conversant, interactive. Psych: Speech fluent, thoughts congruent, affect normal Course Vital Signs Vital signs: Vital Signs Temperature 36.6 C 05/13/20 12:40 Pulse 85 05/13/20 12:40 Respiratory Rate 18 05/13/20 12:40 Blood Pressure 124/60 05/13/20 12:40 Pulse Oximetry 99 05/13/20 12:40 Temperature 36.6 C 05/13/20 12:40 Temperature Source Tympanic 05/13/20 12:40 Pulse 85 05/13/20 12:40 Respiratory Rate 18 05/13/20 12:40 Blood Pressure 124/60 05/13/20 12:40 Blood Pressure Position Sitting 05/13/20 12:40 Pulse Oximetry 99 05/13/20 12:40 Oxygen Delivery Method Room Air 05/13/20 12:40 Oxygen Flow Rate 0 05/13/20 12:40
--- NOTE | 2020-05-13 13:24 | DI.US_ITS ---
EXAM: US FISTULA EVALUATION DIALYSIS CLINICAL HISTORY: swelling,? leak TECHNIQUE: Ultrasound performed using standard protocol. COMPARISON: US US FISTULA EVALUATION DIALYSIS from 05/11/2020 FINDINGS: There is again seen a right upper extremity dialysis fistula. There has been no change in size of th e heterogeneous fluid collection in the medial upper arm and forearm. This may represent a leak or h ematoma related to the fistula. Pseudoaneurysm should also be considered. If there is continued con cern interventional radiology evaluation of the fistula should be considered. Findings were discussed with the emergency department on the date of the examination. IMPRESSION: DATA REPOSITORY:
[2020-05-13 15:30] LABS: Abs Immature Grans 0.05 10^3/uL (0.0-0.06); Absolute Basophil Count 0.03 10^3/uL (0.0-0.2); Absolute Lymphocyte Count 0.33 10^3/uL (1.2-3.4); Absolute Monocyte Count 0.81 10^3/uL (0.1-0.8); Absolute Neutrophil Count 6.78 10^3/uL (1.2-6.7); Basophils % 0.4; Eosinophils % 1.2; HCT 32.4 % (40.0-50.0); HGB 10.1 g/dL (13.5-17.5); Immature Grans % 0.6; Lymphocytes % 4.1; MCHC 31.2 % (32.0-36.0); MCV 109.1 fL (80-95); MPV 9.3 fL (8.0-11.0); Neutrophils % 83.7; Nucleated RBC 0 %; Platelet Count 214 10^3/uL (130-400); RBC 2.97 10^6/uL (4.36-5.78); RDW-SD 63.1 fL
[2020-05-13 15:49] LABS: ALT 31 U/L (16-63); AST 29 U/L (15-37); Albumin 3.5 g/dL (3.4-5.0); Alkaline Phosphatase 164 U/L (46-116); Anion Gap 10.8 mmol/L (3-11); BUN 33 mg/dL (7-18); Bilirubin, Total 0.7 mg/dL (0.2-1.0); CO2 31.2 mmol/L (21.0-32.0); Calcium 9.3 mg/dL (8.5-10.1); Chloride 97 mmol/L (98-107); Estimated GFR 11.93 (mL/min/1.73m2); Glucose 88 mg/dL (74-106); INR 1.2 (0.9-1.1); PTT Activated 24.8 sec (21.0-27.5); Potassium 4.9 mmol/L (3.5-5.1); Prothrombin Time 11.7 sec (9.3-11.0); Sodium 139 mmol/L (136-145); Total Protein 7.7 g/dL (6.4-8.2)
[2020-05-13 15:52] LABS: Diff Comment RBC Morph Reviewed; Macrocytosis 3+
[2020-05-13 16:00] LABS: CREATININE 4.83 mg/dL (0.70-1.30)
== END 2020-05-13 17:00 | disposition home or self-care (01) ==
PROVIDERS: Emergency Provider Emergency Medicine
DX: M79.81 Nontraumatic hematoma of soft tissue (principal); T82.530A Leakage of surgically created arteriovenous fistula, initial encounter; Y84.1 Kidney dialysis as the cause of abnormal reaction of the patient, or of later complication, without mention of misadventure at the time of the procedure; R60.0 Localized edema
CPT/HCPCS: 36415; 80053; 93990; 99284; 83735; 85025; 85610; 85730

== ENCOUNTER 2020-05-20 13:58 | Observation (INO) | payer OTHER, SELFPAY ==
[2020-05-20 14:05] VITALS: BP 130/74; PULSE 95; RESP 18; TEMP 36.6; O2SAT 98
--- NOTE | 2020-05-20 14:22 | W.ED.GENAD ---
Discharge Plan Disposition Patient Disposition: [facility] INPATIENT Condition: Fair Discharge Details Clinical Impression: Hip pain Admit Date/Time: 05/20/20 21:02 Admit Provider: Meek Smart Attending Provider: Meek Smart Primary Care Provider: Stephania Weiss ED Provider: Hien Larkin Discharge Data Discharge Date/Time-TO BE ENTERED AT DEPARTURE: 05/20/20 21:43 Medical Decision Making <Kaitalphonso Cerdaton - Last Filed: 05/21/20 08:12> 74-year-old male presents to the ER chief complaint of right leg swelling. He has had extensive surgery done in the past on that leg due to traumatic injury, reports he fell approximately 6 weeks ago and has been having pain and swelling to his right thigh since. He reports after his fall he was seen and did have pelvic and hip x-rays which were negative. He is a dialysis patient has a shunt noted to his right upper extremity, he also has some ecchymosis noted surrounding the shunt and to his anterior chest which has been in place for the last couple of weeks. He was recently seen for a leaky dialysis fistula. Ultrasound ordered to rule out DVT 1624: Spoke with radiology and ultrasound department who reports that they are unable to evaluate the veins due to the previous surgery. They recommend a CTA with venous runoff. Since he is a dialysis patient he would need to be dialyzed within the next 24 hours after having the imaging. Patient is scheduled for dialysis tomorrow so I will order the CTA with venous runoff. Care to be handed off to oncoming provider Hien Larkin NP pending CT to rule out DVT. <iHen Larkin NP - Last Filed: 05/20/20 23:09> Care of patient received from Jay Galvez APRN. Patient had undergone ultrasound which was unrevealing to evaluate for right thigh swelling. He was supposed to have a CT a with venous runoff but we are not able to perform that at this facility. After reevaluated of the patient his complaint is more of chronic right hip pain with decreased ability to transfer. He was imaged earlier this month with a negative x-ray he denies any fall or injury since the imaging. I will obtain a CAT scan of the pelvis to evaluate for any fracture not detected on plain film. I have added labs to the orders to evaluate for an electrolyte abnormalities that may account for his increased inability to transfer. Labs are unremarkable with the exception of his creatinine at 4.6 which is not an unexpected finding. His potassium magnesium and other electrolytes are within normal limits. Case management was consulted due to his increasing inability to safely remain at home. [facility]. I discussed the case with Dr. Smart from hospitalist services who has accepted patient under observation status for right hip pain, ambulatory dysfunction. Physical therapy evaluation is pending for tomorrow. Case management will contact the [facility] for assistance with discharge planning. Report and care of patient handed off to Dr. Smart. CT results are reported after patient was transported to the floor and show an impacted right hip fracture. See full report for details [facility] was contacted and I spoke with Dr. Bejarano from orthopedics and hospitalist services, he is accepted in transfer and will be transported by ground EMS when a bed is available. All wounds transfer paperwork has been completed Dr. Smart has been updated about his pending transfer. CT abd/pelvis without: FINDINGS: ABDOMEN: Lung Bases: Basilar atelectasis. Cardiomegaly. Coronary artery calcifications. Bilateral gynecomastia. Liver: Normal density. No measurable mass. Gallbladder and biliary tract: No calcified stones are present. There is no biliary ductal dilatation. Pancreas: Normal density, no abnormal calcifications or inflammatory process. Spleen: Normal. Kidneys: Bilateral renal cortical atrophy.There is a 2.5 cm cyst in the left kidney. There is a 0.5 cm nonobstructing stone in the lower pole of the left kidney. Adrenal glands: No mass is seen. Lymph nodes: There are enlarged right inguinal lymph nodes. The largest measures 4.1 x 1.8 cm. Abdominal Aorta: Atherosclerosis. There is a dilated tubular structure in the right pelvis which may represent an arterial stent. External iliac artery aneurysm cannot be excluded. Please correlate with the patient's surgical history. PELVIS: Bladder:Incompletely distended. Bowel: No obstruction or bowel wall thickening. No evidence of appendicitis. There is mild nonspecific thickening of the wall of the distal sigmoid colon. No pericolonic inflammatory changes are seen. No evidence of acute diverticulitis. Peritoneal cavity: Small amount of abdominal pelvic ascites. Reproductive organs: Within normal limits. Bones: There is an impacted fracture of the neck of the right femur. The femoral head is situated within the right acetabulum. There are degenerative changes seen in the spine. Soft Tissues: There is fibrosis and scarring in the right inguinal region. This may reflect prior surgery. Please correlate with the patient's surgical history. IMPRESSION: 1. Impacted fracture of the right femoral neck. 2. Bilateral atrophic kidneys. 3. Small amount of abdominal pelvic ascites. 4. Arterial stent versus aneurysm in the right pelvis. Please correlate with the patient's surgical and clinical history. 5. Cardiomegaly. Atherosclerosis. Coronary artery calcification. Medical Records Medical records reviewed: Yes I reviewed the patient's medical records. Lab Data Lab results reviewed: Yes I reviewed the patient's lab results. Lab results narrative: Laboratory Tests Range/Units 05/20/20 05/20/20 05/20/20 16:53 18:45 18:45 WBC (4.4-10.8) 10^3/uL 7.06 RBC (4.36-5.78) 10^6/uL 2.91 L Hgb (13.5-17.5) g/dL 9.7 L Hct (40.0-50.0) % 31.5 L MCV (80-95) fL 108.2 H MCH (27.0-33.0) pg 33.3 H MCHC (32.0-36.0) % 30.8 L RDW (11.8-14.1) % 15.9 H Plt Count (130-400) 10^3/uL 193 MPV (8.0-11.0) fL 9.8 Immature Gran % 0.7 Neutrophils % 82.3 Lymphocytes % 5.4 Monocytes % 10.5 Eosinophils % 0.8 Basophils % 0.3 Nucleated RBC % % 0 Absolute Neutrophils (1.2-6.7) 10^3/uL 5.81 Absolute Lymphocytes (1.2-3.4) 10^3/uL 0.38 L Absolute Monocytes (0.1-0.8) 10^3/uL 0.74 Absolute Eosinophils (0.0-0.7) 10^3/uL 0.06 Absolute Basophils (0.0-0.2) 10^3/uL 0.02 RBC Morphology See below Polychromasia Present Hypochromasia 1+ Macrocytosis 1+ Sodium (136-145) mmol/L 137 Potassium (3.5-5.1) mmol/L 4.5 Chloride (98-107) mmol/L 96 L Carbon Dioxide (21.0-32.0) mmol/L 30.8 Anion Gap (3-11) mmol/L 10.2 BUN (7-18) mg/dL 44 H Creatinine (0.70-1.30) mg/dL 4.60 H* Estimated GFR/1.73 m2 (mL/min/1.73m2) 12.62 Glucose (74-106) mg/dL 95 Calcium (8.5-10.1) mg/dL 9.5 Magnesium (1.8-2.4) mg/dL 2.0 Total Bilirubin (0.2-1.0) mg/dL 0.7 AST (15-37) U/L 30 ALT (16-63) U/L 30 Alkaline Phosphatase (46-116) U/L 170 H Total Protein (6.4-8.2) g/dL 7.3 Albumin (3.4-5.0) g/dL 3.3 L Urine Color (Yellow) Yellow Urine Clarity (Clear) Clear Urine pH (5-8) 6.0 Ur Specific [place] (1.005-1.025) 1.020 Urine Protein (Negative) mg/dL Negative Urine Ketones (Negative) mg/dL Negative Urine Blood (Negative) Moderate H Urine Nitrite (Negative) Negative Urine Bilirubin (Negative) Negative Urine Urobilinogen (Up TO 0.2) EU/dL 0.2 Ur Leukocyte Esterase (Negative) Negative Urine RBC (0-2) HPF 5-10 H Urine WBC (0-5) HPF Negative Ur Epithelial Cells (Negative) HPF Rare Urine Crystals (Negative) HPF Negative Urine Bacteria (Negative) HPF Few Urine Casts (Negative) LPF Negative Urine Mucus (Negative) Negative Urine Other (Negative) Negative Ur Culture Indicated? No Urine Glucose (Negative) mg/dL Negative HPI <Kait Yuen - Last Filed: 05/21/20 08:12> General Mode of arrival: wheelchair. Date/Time Provider Initiated Documentation: 05/20/20 14:04. Limitations to Documentation: no limitations. Information obtained by: patient. HPI Narrative: 74-year-old male presents to the ER chief complaint of right leg swelling. He has had extensive surgery done in the past on that leg due to traumatic injury, reports he fell approximately 6 weeks ago and has been having pain and swelling to his right thigh since. He reports after his fall he was seen and did have pelvic and hip x-rays which were negative. He is a dialysis patient has a shunt noted to his right upper extremity, he also has some ecchymosis noted surrounding the shunt and to his anterior chest which has been in place for the last couple of weeks. He was recently seen for a leaky dialysis fistula. Related Data Home Medications Medication Instructions Recorded Confirmed simvastatin 40 mg PO DAILY 03/14/14 05/20/20 tamsulosin 2 tab PO HS 02/05/16 05/20/20 Carboxymethylcellulose Sodium 1 drp OPHTHALMIC QID PRN PRN 02/02/18 05/13/20 [Lubricant Eye Drop] allopurinol 200 mg PO DAILY 02/02/18 05/20/20 ferrous sulfate [Feosol] 325 mg PO TID 02/02/18 05/20/20 hydrocodone-acetaminophen 1 ea PO TID PRN PRN 02/02/18 05/20/20 hydroxychloroquine 200 mg PO BID 02/02/18 05/20/20 nifedipine 60 mg PO DAILY 02/02/18 05/20/20 sodium citrate-citric acid 473 ml PO HS 02/02/18 05/20/20 [Cytra-2] acetaminophen [Tylenol Arthritis 650 mg PO PRN PRN 03/07/18 05/20/20 Pain] Lactobacillus acidophilus 1 PO DAILY 05/17/19 amlodipine 5 mg PO DAILY 05/17/19 05/20/20 collagenase clostridium histo. 1 applic TOPICAL DAILY 05/17/19 05/20/20 diclofenac sodium 4 g TOPICAL BID PRN 05/17/19 05/20/20 fluticasone propionate 1 spray INTRANASAL Q12H 05/17/19 05/20/20 lidocaine 1 patch TOPICAL DAILY 05/17/19 05/20/20 paraffin applic MISCELLANEOUS QID 05/17/19 colchicine [Colcrys] 0.6 mg PO .TWICE WEEKLY 05/11/20 05/20/20 sevelamer carbonate 1,600 mg PO BID 05/11/20 05/20/20 omeprazole 20 mg PO DAILY 05/20/20 05/20/20 Allergies Allergy/AdvReac Type Severity Reaction Status Date / Time Penicillins Allergy Severe Swelling/Ed Unverified 05/20/20 14:14 shantell dicloxacillin [facility] Unverified 05/20/20 14:14 terazosin Allergy per [facility] Unverified 05/20/20 14:14 General Stated Complaint: GenMedical AMADA: 3 Review of Systems <Kait Yuen - Last Filed: 05/21/20 08:12> Narrative: Constitutional: Negative for weight loss, alert and oriented, well groomed, normal body habitus, appears comfortable. HEENT: Denies trauma, headaches, blurry vision, nasal discharge, sore throat, trouble swallowing. Chest: Denies chest pain, palpitations, irregular rhythm, hypertension. Respiratory: Denies Shortness of breath, cough, hemoptysis. GI: Denies abdominal pain, nausea, vomiting, diarrhea, constipation. : Denies dysuria, hematuria, flank pain, rectal bleeding. Neuro: Denies dizziness, blurry vision, weakness, syncope, headache or facial numbness. Hematologic: Denies easy bruising, intolerance to heat or cold, hair loss. PFSH <Kait Cerdaton - Last Filed: 05/21/20 08:12> Social History Smoking/Tobacco Use Status: Former Tobacco Use Smoking risk assessment performed?: Yes Alcohol Intake: never Drug use: Never Substance use type: does not use Do you feel safe at home: Yes Do you feel safe in your relationship?: Yes Exam <Kait Yuen - [facility] Filed: 05/21/20 08:12> Narrative Exam Narrative: Constitutional: Alert and oriented x3. Appears stated age. Normal body habitus. Head: Normocephalic, no trauma. Eyes: Pupils PERRLA, Red reflex noted, EOM's intact. Eyelids symmetrical without lesions, discharge, or swelling. ENT: Bilateral TM's WNL, External ear normal to inspection, no mastoid TTP, swelling, or erythema, Nasal turbinates WNL, no nasal discharge. Normal dentition, Posterior pharynx WNL, no exudate. Chest: RRR, Normal S1, S2, distal pulses intact. Resp: Lungs clear to auscultation bilaterally, no wheezes, rales, or rhonchi. Musculoskeletal: Patient has extensive surgical scar scars and reconstructive surgery noted to bilateral legs. reports swelling noted to his right thigh. Skin: Extensive ecchymosis noted surrounding the right dialysis shunt and anterior chest wall. Capillary refill less than 2 sec. Neurologic: Cranial nerves II-XII intact. Alert and oriented x 3. DTR's intact. Hematologic/Lymphatic: No ecchymosis, no lymphadenopathy. Course <Kait Yuen - Last Filed: 05/21/20 08:12> Vital Signs Vital signs: Vital Signs Temperature 36.6 C 05/20/20 14:05 Pulse 95 H 05/20/20 14:05 Respiratory Rate 18 05/20/20 14:05 Blood Pressure 130/74 05/20/20 14:05 Pulse Oximetry 98 05/20/20 14:05 Temperature 36.6 C 05/20/20 14:05 Temperature Source Skin 05/20/20 14:05 Pulse 95 H 05/20/20 14:05 Respiratory Rate 18 05/20/20 14:05 Respiratory Effort Non-Labored 05/20/20 14:12 Blood Pressure 130/74 05/20/20 14:05 Blood Pressure Position Sitting 05/20/20 14:05 Pulse Oximetry 98 05/20/20 14:05 Oxygen Delivery Method Room Air 05/20/20 14:05 Oxygen Flow Rate 0 05/20/20 14:05 Pain Level 10 05/20/20 14:05 Sign Out <Kait Yuen - Last Filed: 05/21/20 08:12> Sign Out Data: Sign Out Comment: Pending CTA of right thigh to R/O DVT Last updated by Kait Yuen at 05/20/20 16:30
[2020-05-20 16:02] VITALS: RESP 16
--- NOTE | 2020-05-20 16:09 | NUR.NOTE ---
care management notified of pts frequent ER visits and also that his can not lift him at home . plan is for her to speak with his Nursing Note:
[2020-05-20 16:30] VITALS: BP 144/77; PULSE 83; RESP 16; TEMP 36.4; O2SAT 98
[2020-05-20 17:02] LABS: Bilirubin Negative (Negative); Blood Moderate (Negative); Clarity Clear (Clear); Glucose Negative (Negative); Ketones Negative (Negative); Leukocyte Esterase Negative (Negative); Nitrite Negative (Negative); Urobilinogen 0.2 EU/dL (Up TO 0.2)
[2020-05-20 17:13] LABS: Bacteria Few HPF (Negative); Casts Negative LPF (Negative); Crystals Negative HPF (Negative); Epithelial Cells Rare HPF (Negative); Mucus Negative (Negative); Other Cells Negative (Negative); WBC Negative HPF (0-5)
[2020-05-20 17:14] LABS: C & S Indicated? No
--- NOTE | 2020-05-20 18:16 | NUR.NOTE ---
pt refused to attempt getting up. Nursing Note:
[2020-05-20 18:49] LABS: Abs Immature Grans 0.05 10^3/uL (0.0-0.06); Absolute Basophil Count 0.02 10^3/uL (0.0-0.2); Absolute Eosinophil Count 0.06 10^3/uL (0.0-0.7); Absolute Lymphocyte Count 0.38 10^3/uL (1.2-3.4); Absolute Monocyte Count 0.74 10^3/uL (0.1-0.8); Absolute Neutrophil Count 5.81 10^3/uL (1.2-6.7); Basophils % 0.3; Eosinophils % 0.8; HCT 31.5 % (40.0-50.0); HGB 9.7 g/dL (13.5-17.5); Immature Grans % 0.7; Lymphocytes % 5.4; MCH 33.3 pg (27.0-33.0); MCHC 30.8 % (32.0-36.0); MCV 108.2 fL (80-95); MPV 9.8 fL (8.0-11.0); Monocytes % 10.5; Neutrophils % 82.3; Nucleated RBC 0 %; Platelet Count 193 10^3/uL (130-400); RBC 2.91 10^6/uL (4.36-5.78); RDW 15.9 % (11.8-14.1); WBC 7.06 10^3/uL (4.4-10.8)
[2020-05-20 19:02] VITALS: BP 136/69; PULSE 95; RESP 18; TEMP 36.6; O2SAT 99
--- NOTE | 2020-05-20 19:07 | NUR.NOTE ---
after refusing to get up, pt then demanded to get on the commode. he was assisted to the commode. he required assist of three .Nursing Note:
[2020-05-20 19:11] LABS: Hypochromasia 1+; Macrocytosis 1+; Polychromasia Present
[2020-05-20 19:13] LABS: ALT 30 U/L (16-63); AST 30 U/L (15-37); Albumin 3.3 g/dL (3.4-5.0); Alkaline Phosphatase 170 U/L (46-116); Anion Gap 10.2 mmol/L (3-11); BUN 44 mg/dL (7-18); Bilirubin, Total 0.7 mg/dL (0.2-1.0); CO2 30.8 mmol/L (21.0-32.0); Calcium 9.5 mg/dL (8.5-10.1); Chloride 96 mmol/L (98-107); Estimated GFR 12.62 (mL/min/1.73m2); Glucose 95 mg/dL (74-106); Potassium 4.5 mmol/L (3.5-5.1); Sodium 137 mmol/L (136-145); Total Protein 7.3 g/dL (6.4-8.2)
--- NOTE | 2020-05-20 20:04 | NUR.NOTE ---
pt eating a sandwhich and drinking milk Nursing Note:
[2020-05-20] MEDS: HYDROcodone 5/Acetaminophen 325 TAB PO (20:38)
--- NOTE | 2020-05-20 20:52 | HPE_ITS ---
Date of service: 05/20/20 Time of Service: 20:52 Assessment and Plan Assessment and plan (1) Hip pain: Status: Acute Assessment and plan: Will update when CT in but clearly has ambulatory dysfunction and unable to manage at home. Will get PT involved (unless CT positive) and then will need to arrange for HD and [facility]. May need course of Rehab in any case. History of Present Illness History of Present Illness Chief Complaint: hip pain Narrative: 74 male with CRF on HD. Fell 04/10, hip film negative. Continued pain since, worsening over past 1-2 weeks. In meantime dk has been placed in wheelchair by podiatry to manage a nonhealing wound olf right foot. During this time he has been managing transfers wih assistance of his but with the increasing pain she is no longer able to manage and he was brought to ER. In ER initial medical evaluation unrevealing but note that CT of hip is pending at this time. [facility] and [facility]. Also note that HD is due in AM. Due to ambulatory dysfunction and inability to manage at home he is admitted for further management. Review of Systems All systems reviewed & are unremarkable except as noted in HPI and below PFSH Social History Smoking/Tobacco Use Status: Former Tobacco Use Smoking risk assessment performed?: Yes Alcohol Intake: never Drug use: Never Substance use type: does not use Do you feel safe at home: Yes Do you feel safe in your relationship?: Yes Meds Home Medications and Allergies Home Medications Medication Instructions Recorded Confirmed Type simvastatin 40 mg PO DAILY 03/14/14 05/20/20 History tamsulosin 2 tab PO HS 02/05/16 05/20/20 History Carboxymethylcellulose Sodium 1 drp OPHTHALMIC QID PRN PRN 02/02/18 05/13/20 History [Lubricant Eye Drop] allopurinol 200 mg PO DAILY 02/02/18 05/20/20 History ferrous sulfate [Feosol] 325 mg PO TID 02/02/18 05/20/20 History hydrocodone-acetaminophen 1 ea PO TID PRN PRN 02/02/18 05/20/20 History hydroxychloroquine 200 mg PO BID 02/02/18 05/20/20 History nifedipine 60 mg PO DAILY 02/02/18 05/20/20 History sodium citrate-citric acid 473 ml PO HS 02/02/18 05/20/20 History [Cytra-2] acetaminophen [Tylenol Arthritis 650 mg PO PRN PRN 03/07/18 05/20/20 History Pain] Lactobacillus acidophilus 1 PO DAILY 05/17/19 History amlodipine 5 mg PO DAILY 05/17/19 05/20/20 History collagenase clostridium histo. 1 applic TOPICAL DAILY 05/17/19 05/20/20 History diclofenac sodium 4 g TOPICAL BID PRN 05/17/19 05/20/20 History fluticasone propionate 1 spray INTRANASAL Q12H 05/17/19 05/20/20 History lidocaine 1 patch TOPICAL DAILY 05/17/19 05/20/20 History paraffin applic MISCELLANEOUS QID 05/17/19 History colchicine [Colcrys] 0.6 mg PO .TWICE WEEKLY 05/11/20 05/20/20 History sevelamer carbonate 1,600 mg PO BID 05/11/20 05/20/20 History omeprazole 20 mg PO DAILY 05/20/20 05/20/20 History Allergies Allergy/AdvReac Type Severity Reaction Status Date / Time Penicillins Allergy Severe Swelling/Ed Unverified 05/20/20 14:14 shantell dicloxacillin [facility] Unverified 05/20/20 14:14 terazosin Allergy [facility] Unverified 05/20/20 14:14 Exam Narrative Exam Narrative: 136/69, 95, 36.6, 18, 99%. HEENT atgraumatic; neck supple; lungs clear, heart RRR w/o MRG; abdomen soft and NT; extremities dressing on right f oot not taken down, sponge clean and dry, RLE everted but not foreshortened (states this is usual), mild pain with hip ER and resisted flexion Results Labs Result diagrams: 05/20/20 18:45 05/20/20 18:45 Labs: Laboratory Results - last 24 hr 05/20/20 05/20/20 05/20/20 16:53 18:45 18:45 WBC 7.06 RBC 2.91 L Hgb 9.7 L Hct 31.5 L MCV 108.2 H MCH 33.3 H MCHC 30.8 L RDW 15.9 H Plt Count 193 MPV 9.8 Immature Gran % 0.7 Neutrophils % 82.3 Lymphocytes % 5.4 Monocytes % 10.5 Eosinophils % 0.8 Basophils % 0.3 Nucleated RBC % 0 Absolute Neutrophils 5.81 Absolute Lymphocytes 0.38 L Absolute Monocytes 0.74 Absolute Eosinophils 0.06 Absolute Basophils 0.02 RBC Morphology See below Polychromasia Present Hypochromasia 1+ Macrocytosis 1+ Sodium 137 Potassium 4.5 Chloride 96 L Carbon Dioxide 30.8 Anion Gap 10.2 BUN 44 H Creatinine 4.60 H* Estimated GFR/1.73 m2 12.62 Glucose 95 Calcium 9.5 Magnesium 2.0 Total Bilirubin 0.7 AST 30 ALT 30 Alkaline Phosphatase 170 H Total Protein 7.3 Albumin 3.3 L Urine Color Yellow Urine Clarity Clear Urine pH 6.0 Ur Specific [place] 1.020 Urine Protein Negative Urine Ketones Negative Urine Blood Moderate H Urine Nitrite Negative Urine Bilirubin Negative Urine Urobilinogen 0.2 Ur Leukocyte Esterase Negative Urine RBC 5-10 H Urine WBC Negative Ur Epithelial Cells Rare Urine Crystals Negative Urine Bacteria Few Urine Casts Negative Urine Mucus Negative Urine Other Negative Ur Culture Indicated? No Urine Glucose Negative Last Vital Signs Temp 36.6 C 05/20/20 19:02 Pulse 95 H 05/20/20 19:02 Resp 18 05/20/20 19:02 BP 136/69 05/20/20 19:02 Pulse Ox 99 05/20/20 19:02 COVID-19 Screening Have you, or household traveled for leisure in last 14 days?: No
--- NOTE | 2020-05-20 21:01 | DI.CT_ITS ---
EXAM: CT ABDOMEN PELVIS WO CLINICAL HISTORY: right hip pain, negative xray. TECHNIQUE: Imaging Protocol: Axial computed tomography images with coronal and sagittal reformatted images were created and reviewed. COMPARISON: CR,XR XR HIP RT COMPLETE AP PELVIS from 04/10/2020 FINDINGS: ABDOMEN: Lung Bases: Basilar atelectasis. Cardiomegaly. Coronary artery calcifications. Bilateral gynecomas tia. Liver: Normal density. No measurable mass. Gallbladder and biliary tract: No calcified stones are present. There is no biliary ductal dilatatio n. Pancreas: Normal density, no abnormal calcifications or inflammatory process. Spleen: Normal. Kidneys: Bilateral renal cortical atrophy.There is a 2.5 cm cyst in the left kidney. There is a 0.5 cm nonobstructing stone in the lower pole of the left kidney. Adrenal glands: No mass is seen. Lymph nodes: There are enlarged right inguinal lymph nodes. The largest measures 4.1 x 1.8 cm. Abdominal Aorta: Atherosclerosis. There is a dilated tubular structure in the right pelvis which may represent an arterial stent. External iliac artery aneurysm cannot be excluded. Please correlate w ith the patient's surgical history. PELVIS: Bladder:Incompletely distended. Bowel: No obstruction or bowel wall thickening. No evidence of appendicitis. There is mild nonspecif ic thickening of the wall of the distal sigmoid colon. No pericolonic inflammatory changes are seen. No evidence of acute diverticulitis. Peritoneal cavity: Small amount of abdominal pelvic ascites. Reproductive organs: Within normal limits. Bones: There is an impacted fracture of the neck of the right femur. The femoral head is situated wi thin the right acetabulum. There are degenerative changes seen in the spine. Soft Tissues: There is fibrosis and scarring in the right inguinal region. This may reflect prior pro rgery. Please correlate with the patient's surgical history. IMPRESSION: 1. Impacted fracture of the right femoral neck. 2. Bilateral atrophic kidneys. 3. Small amount of abdominal pelvic ascites. 4. Arterial stent versus aneurysm in the right pelvis. Please correlate with the patient's surgical and clinical history. 5. Cardiomegaly. Atherosclerosis. Coronary artery calcification. RADIATION DOSE DELIVERED: 1,803.35mGy.cm Total DLP DATA REPOSITORY: All CT scans at this facility are submitted to the National Radiology Data Registry (NRDR) Dose Index Registry (DIR) with the [employer] (A[employer]). RADIATION OPTIMIZATION: All CT scans at this facility use at least one of these dose optimization te chniques: automated exposure control; mA and/or kV adjustment per patient size (includes targeted exa ms where dose is matched to clinical indication); or iterative reconstruction.
[2020-05-20 22:00] VITALS: BP 143/80; PULSE 85; RESP 18; TEMP 36.7; O2SAT 99
[2020-05-20 22:03] VITALS: BP 143/80; PULSE 85; RESP 18; TEMP 36.7; O2SAT 99
--- NOTE | 2020-05-20 22:05 | DI.VRAD_ITS ---
PROCEDURE INFORMATION: Exam: CT Abdomen And Pelvis Without Contrast Exam date and time: 05/20/2020 8:55 PM Age: 74 years old Clinical indication: Pain; Other: Right hip; Prior surgery; Surgery type: Skin grafts to leg TECHNIQUE: Imaging protocol: Computed tomography of the abdomen and pelvis without contrast. Radiation optimization: All CT scans at this facility use at least one of these dose optimization techniques: automated exposure control; mA and/or kV adjustment per patient size (includes targeted exams where dose is matched to clinical indication); or iterative reconstruction. COMPARISON: CR XR HIP RT COMPLETE AP PELVIS 04/10/2020 9:39 PM FINDINGS: Lungs: The visualized lung bases are unremarkable. Heart: There is cardiomegaly. Liver: The liver is within normal limits. Gallbladder and bile ducts: There is sludge within the gallbladder. Pancreas: The pancreas is within normal limits. Spleen: The spleen is within normal limits. Adrenal glands: The adrenal glands are unremarkable. Kidneys and ureters: Both kidneys are atrophic. There is a cyst involving the left kidney measuring 2.5 cm. There is a calculus in the lower pole of the left kidney measuring 5 mm. This is not obstructing. Stomach and bowel: Unremarkable. No obstruction. No mucosal thickening. Appendix: No evidence of appendicitis. Intraperitoneal space: There is ascites. Vasculature: There are coronary artery calcifications. There are arteriosclerotic changes of the aorta. There is a suspected thrombosed stent within the right-side of the pelvis. Clinical correlation is recommended. This could also represent a calcified thrombosed aneurysm within the pelvis. Clinical correlation is recommended correlation with any old studies is recommended as well. Lymph nodes: There is an enlarged lymph node at the level of the right groin. Urinary bladder: The urinary bladder is not very distended with urine. Reproductive: The prostate and seminal vesicles appear unremarkable. There is a right hydrocele. Bones/joints: There is an impacted fracture at the neck of the right hip. The head of the right hip is not displaced. There are degenerative changes of both hips. There are degenerative changes of the thoracic and lumbar spines. Soft tissues: There is bilateral gynecomastia. The left side is greater than the right. There is associated soft tissue edema. There is fibrosis and scarring at the level of the right groin which extends to the medial aspect of the right thigh. This is most likely status post prior surgery. The patient is status post abdominal surgery. There are surgical clips at this level. IMPRESSION: 1. Bilateral atrophic kidneys consistent with end-stage renal disease. Nondistended urinary bladder. 2. Ascites. 3. Impacted fracture of the right hip as above. 4. Postsurgical changes as above. 5. Calcified thrombosed stent versus calcified thrombosed aneurysm within the pelvis. Clinical correlation is recommended. 6. Bilateral gynecomastia. 7. Cardiomegaly. Arteriosclerotic changes of the aorta. Coronary artery calcifications. 8. Sludge within the gallbladder. 9. Osseous findings as above. Findings were discussed with BRIE ZAPATA at 05/20/2020 10:04 PM EST. Dictated and Authenticated by: Shine Norris MD. Ordering:MAYLIN Stanford MD
[2020-05-20] MEDS: Tamsulosin 0.4 MG CAPCR 0.8 MG PO (22:49)
--- NOTE | 2020-05-20 23:14 | DSE_ITS ---
Date of service: 05/20/20 Time of Service: 23:14 DS: Diagnosis Discharge Diagnosis (1) Closed right hip fracture: Status: Acute Asessment and Plan: being transferred to [facility] for surgical repair of right hip fracture. Discussed with Dr Zamora from hospitalist services who accepts in transfer. also discussed with Dr Bejarano from orthopedics. Discharge Plan Disposition Patient Disposition: [facility] Condition: Fair Discharge Details Reason For Visit: AMBULATORY DYSFUNCTION Admit Date/Time: 05/20/20 21:02 Admit Provider: Meek Smart Attending Provider: Meek Smart Primary Care Provider: Stephania Weiss Hospital Course Hospital Course: Patient presented to the emergency department by EMS after being unable to transfer into his wheelchair or get into his 's request for a doctor's appointment. He had had a fall several weeks prior was evaluated in the emergency department had a negative hip plain film. CT scan of the abdomen and pelvis demonstrate impacted right hip fracture. Case was discussed with [facility] orthopedic and hospitalist who accepts in transfer. All transfer paperwork completed he will be transferred by ground EMS when bed is available Home Meds and New Rx's Prescriptions: No Action simvastatin 40 MG tablet 40 mg PO DAILY RF: 0 tamsulosin 0.4 MG capsule 2 tab PO HS RF: 0 nifedipine 30 MG tablet extended release 60 mg PO DAILY RF: 0 allopurinol 100 MG tablet 200 mg PO DAILY RF: 0 sodium citrate-citric acid [Cytra-2] 473 ML solution 473 ml PO HS RF: 0 hydrocodone-acetaminophen 1 EACH tablet 1 ea PO TID PRN PRNRF: 0 ferrous sulfate [Feosol] 325 MG tablet 325 mg PO TID RF: 0 hydroxychloroquine 200 MG tablet 200 mg PO BID RF: 0 Carboxymethylcellulose Sodium [Lubricant Eye Drop] 15 ML Drops 1 drp Ophthalmic QID PRN PRNRF: 0 amlodipine 5 mg Tablet 5 mg PO DAILY RF: 0 lidocaine 5 % Adhesive Patch,Medicated 1 patch TOPICAL DAILY RF: 0 collagenase clostridium histo. 250 unit/gram Ointment 1 applic TOPICAL DAILY RF: 0 Lactobacillus acidophilus Capsule 1 PO DAILY RF: 0 fluticasone propionate 50 mcg/actuation [place],Suspension 1 spray INTRANASAL Q12H RF: 0 diclofenac sodium 1 % Gel 4 g TOPICAL BID PRNRF: 0 paraffin Wax MISCELLANEOUS QID RF: 0 acetaminophen [Tylenol Arthritis Pain] 650 mg Tablet Extended Release 650 mg PO PRN PRNRF: 0 colchicine [Colcrys] 0.6 mg tablet 0.6 mg PO .TWICE WEEKLY RF: 0 sevelamer carbonate 800 mg tablet 1,600 mg PO BID RF: 0 omeprazole 20 mg capsule,delayed release(DR/EC) 20 mg PO DAILY RF: 0 Discharge Instructions Activity:: Bedrest Equipment/Supplies:: No Equipment Needed Diet:: NPO Discharge Orders Discharge Orders: Discharge Order (Routine); Ordered 05/20/20 Ordered By: Hien Larkin DS: Summary Status at Discharge Functional status at discharge: bed bound Overall status at discharge: patient is not back to baseline Mental Status: mental status grossly normal Speech and Movement: speech and movement normal Mood: congruent mood Affect: normal affect Exam Narrative Exam Narrative: 136/69, 95, 36.6, 18, 99%. HEENT atgraumatic; neck supple; lungs clear, heart RRR w/o MRG; abdomen soft and NT; extremities dressing on right foot not taken down, sponge clean and dry, RLE everted but not foreshortened (states this is usual), mild pain with hip ER and resisted flexion Psych Mental Status: mental status grossly normal Speech and Movement: speech and movement normal Mood: congruent mood Affect: normal affect DS: Data Vitals/I&O Vitals and I&O: Vital Signs Temperature 36.7 C 05/20/20 22:03 Temperature Source Tympanic 05/20/20 22:03 Pulse 85 05/20/20 22:03 Pulse Rhythm Regular 05/20/20 22:00 Respiratory Rate 18 05/20/20 22:03 Respiratory Effort Non-Labored 05/20/20 22:00 Respiratory Depth Normal 05/20/20 22:00 Respiratory Pattern Normal 05/20/20 22:00 Blood Pressure 143/80 H 05/20/20 22:03 Blood Pressure Position Sitting 05/20/20 14:05 Pulse Oximetry 99 05/20/20 22:03 Oxygen Delivery Method Room Air 05/20/20 22:03 Oxygen Flow Rate 0 05/20/20 22:03 Pain Level 0 05/20/20 22:03 Intake & Output 11/17/20 11/18/20 11/18/20 23:59 11:59 23:59 Weight 101.6 kg Other: Urine Appearance Clear # Bowel Movements 1 Data Completed and Pending Labs on day of discharge: Labs from last 24 hours 05/20/20 05/20/20 05/20/20 20:59 18:45 18:45 WBC 7.06 RBC 2.91 L Hgb 9.7 L Hct 31.5 L MCV 108.2 H MCH 33.3 H MCHC 30.8 L RDW 15.9 H Plt Count 193 MPV 9.8 Immature Gran % 0.7 Neutrophils % 82.3 Lymphocytes % 5.4 Monocytes % 10.5 Eosinophils % 0.8 Basophils % 0.3 Nucleated RBC % 0 Absolute Neutrophils 5.81 Absolute Lymphocytes 0.38 L Absolute Monocytes 0.74 Absolute Eosinophils 0.06 Absolute Basophils 0.02 RBC Morphology See below Polychromasia Present Hypochromasia 1+ Macrocytosis 1+ Sodium 137 Potassium 4.5 Chloride 96 L Carbon Dioxide 30.8 Anion Gap 10.2 BUN 44 H Creatinine 4.60 H* Estimated GFR/1.73 m2 12.62 Glucose 95 Calcium 9.5 Magnesium 2.0 Total Bilirubin 0.7 AST 30 ALT 30 Alkaline Phosphatase 170 H Total Protein 7.3 Albumin 3.3 L Urine Color Urine Clarity Urine pH Ur Specific [place] Urine Protein Urine Ketones Urine Blood Urine Nitrite Urine Bilirubin Urine Urobilinogen Ur Leukocyte Esterase Urine RBC Urine WBC Ur Epithelial Cells Urine Crystals Urine Bacteria Urine Casts Urine Mucus Urine Other Ur Culture Indicated? Urine Glucose COVID-19 PCR Pending Nasopharyn COVID-19 PCR Pending Ref Test Perform Site Pending 05/20/20 16:53 WBC RBC Hgb Hct MCV MCH MCHC RDW Plt Count MPV Immature Gran % Neutrophils % Lymphocytes % Monocytes % Eosinophils % Basophils % Nucleated RBC % Absolute Neutrophils Absolute Lymphocytes Absolute Monocytes Absolute Eosinophils Absolute Basophils RBC Morphology Polychromasia Hypochromasia Macrocytosis Sodium Potassium Chloride Carbon Dioxide Anion Gap BUN Creatinine Estimated GFR/1.73 m2 Glucose Calcium Magnesium Total Bilirubin AST ALT Alkaline Phosphatase Total Protein Albumin Urine Color Yellow Urine Clarity Clear Urine pH 6.0 Ur Specific [place] 1.020 Urine Protein Negative Urine Ketones Negative Urine Blood Moderate H Urine Nitrite Negative Urine Bilirubin Negative Urine Urobilinogen 0.2 Ur Leukocyte Esterase Negative Urine RBC 5-10 H Urine WBC Negative Ur Epithelial Cells Rare Urine Crystals Negative Urine Bacteria Few Urine Casts Negative Urine Mucus Negative Urine Other Negative Ur Culture Indicated? No Urine Glucose Negative COVID-19 PCR Nasopharyn COVID-19 PCR Ref Test Perform Site [facility] Social History Smoking/Tobacco Use Status: Former Tobacco Use Smoking risk assessment performed?: Yes Alcohol Intake: never Drug use: Never Substance use type: does not use Do you feel safe at home: Yes Do you feel safe in your relationship?: Yes
--- NOTE | 2020-05-21 11:07 | PT.INNT ---
Date of service: 05/21/20 Time of Service: 11:07 PT Notes Visit Reasons: AMBULATORY DYSFUNCTION Patient discharged on 05/20/2020. No skilled PT services was provided for this admission.
--- NOTE | 2020-05-21 12:08 | PDOC.ERCMPRO ---
- If Service Date Differs Date of service: 05/20/20 Time of Service: 18:00 Care Management Progress Note At the request of ED nurse, EDGARDO meets with Erik and also speaks with his , Sheba, via telephone. Both Erik and his report that prior to his fall a few weeks ago, Erik was able to stand and to walk short distances. Since the fall, however, his pain has become increasingly worse and this past week, he has become unable to stand or walk or to transfer himself out of the wheelchair into the car. This has resulted in Erik missing some of his medical appointments, including dialysis, as his drives him to appointments but he is currently unable to transfer from the wheelchair into the car. With Erik's verbal authorization, EDGARDO contacts Hilary Court[facility] via fax to enlist her assistance in setting up in-home services and transportation to and from appointments.
[2020-05-23 11:05] LABS: COVID-19 RT-PCR UVMMC Result Negative (Negative)
== END 2020-05-21 00:13 | disposition short-term general hospital (02) ==
LOC: ER 21:39 → MS 21:51
PROVIDERS: Admitting Provider General Practice; Emergency Provider Nurse Practitioner Acute Care; PCP Nurse Practitioner Adult Health; Visit Provider General Practice
DX: S72.001A Fracture of unspecified part of neck of right femur, initial encounter for closed fracture (principal); N18.6 End stage renal disease; Z99.2 Dependence on renal dialysis; W19.XXXA Unspecified fall, initial encounter; Z11.59 Encounter for screening for other viral diseases
CPT/HCPCS: 36415; 80053; 99217; 99222; 99285; U0003; 74176; 81003; 81015; 83735; 85025; 99219; 99284; G0378

== ENCOUNTER 2020-05-31 10:04 | Outpatient (REF) | payer SELFPAY ==
[2020-06-02 14:15] LABS: COVID-19 RT-PCR Result NEGATIVE (Negative)
== END 2020-05-31 10:24 ==
LOC: LBN 10:04
PROVIDERS: PCP Nurse Practitioner Adult Health; Visit Provider Nurse Practitioner Adult Health
DX: Z11.59 Encounter for screening for other viral diseases (principal)
CPT/HCPCS: U0003

== ENCOUNTER 2020-06-01 16:36 | Emergency (ER) | payer MEDICARE, OTHER, SELFPAY ==
[2020-06-01] VITALS (23 sets, daily range): BP systolic 107–136; BP diastolic 49–63; PULSE 65–74; RESP 13–23; TEMP 36.4–36.6; O2SAT 90–97
--- NOTE | 2020-06-01 17:01 | W.ED.GENAD ---
Discharge Plan Disposition Patient Disposition: [facility] Condition: Improving Discharge Details Clinical Impression: Hematochezia Primary Care Provider: Stephania Weiss ED Provider: Paolo Jean Baptiste Home Meds and New Rx's Prescriptions: Continued simvastatin 40 MG tablet 40 mg PO DAILY RF: 0 tamsulosin 0.4 MG capsule 2 tab PO HS RF: 0 allopurinol 100 MG tablet 200 mg PO DAILY RF: 0 ferrous sulfate [Feosol] 325 MG tablet 325 mg PO DAILY RF: 0 hydroxychloroquine 200 MG tablet 200 mg PO BID RF: 0 Carboxymethylcellulose Sodium [Lubricant Eye Drop] 15 ML Drops 1 drp Ophthalmic QID PRN PRNRF: 0 lidocaine 5 % Adhesive Patch,Medicated 1 patch TOPICAL DAILY RF: 0 collagenase clostridium histo. 250 unit/gram Ointment 1 applic TOPICAL DAILY RF: 0 fluticasone propionate 50 mcg/actuation [place],Suspension 1 spray INTRANASAL Q12H RF: 0 paraffin Wax MISCELLANEOUS QID RF: 0 metoprolol succinate 50 mg Tablet Extended Release 24 Hr 50 mg PO DAILY RF: 0 melatonin 3 mg Tablet 3 mg PO HS PRNRF: 0 aspirin 81 mg Tablet,Chewable 81 mg PO DAILY RF: 0 folic acid 1 mg Tablet 1 mg PO DAILY RF: 0 lisinopril 2.5 mg Tablet 2.5 mg PO DAILY RF: 0 vitamin B complex Capsule 1 cap PO DAILY RF: 0 oxycodone 5 mg Tablet 5 - 7.5 mg PO Q4H PRN PRNRF: 0 acetaminophen [Tylenol Arthritis Pain] 650 mg Tablet Extended Release 650 mg PO PRN PRNRF: 0 colchicine [Colcrys] 0.6 mg tablet 0.3 mg PO .TWICE WEEKLY RF: 0 sevelamer carbonate 800 mg tablet 1,600 mg PO TID RF: 0 omeprazole 20 mg capsule,delayed release(DR/EC) 20 mg PO DAILY PRNRF: 0 Discontinued heparin (porcine) 5,000 unit/mL Solution 5,000 unit SUBCUT Q8H RF: 0 Discharge Instructions Additional Instructions: I discussed your case with the on-call hospitalist service, Dr. Spaulding at [facility] as well as with Dr. Gore. Stop the heparin injections for 48 hours. We recommend you recheck hematocrit tomorrow. If evidence of bleeding ceases, may resume heparin at previous dose for the planned for 30 days until June 21. Return if you have recurrent rectal bleeding. Continue daily aspirin as well as the rest of your regular medications. Your hemoglobin at the time of discharge was 8.5. It is 8.0 today with a hematocrit of 26.9. Platelets were 304. Medical Decision Making 74-year-old male , known to me from recent stay in the emergency department. He is status post right hip hemiarthroplasty on May 21, and has been residing at local rehabilitation facility. They note he had report of bloody stool at recent hospital stay and today again was noted to have large bloody stool. He denies abdominal pain. There is no syncope. He arrives to the ER interactive in no acute distress. His vital signs are pulse 68, blood pressure 124/63, 94% sat on room air and afebrile of 36.4. His exam reveals dark and bloody stool with no active bleeding present. Discharge summary from [facility] obtained. Note note of GI bleeding. Most recent hematocrit was 2 8.3 with a hemoglobin of 8.5 on May 27. Records obtained and reviewed. Note of SARS Covid 2 - test on May 29. The patient has been taking heparin subcutaneous injections to be for 30 days and ending on June 21. Nurses report last was at 9 AM this morning. IV placed, labs including type and screen obtained. Patient remained stable. Labs reveal hematocrit of 26.9, platelets 304, INR 1.3, PTT 27. Sodium 135, potassium 5.0, chloride 98, bicarb 29, BUN 58, creatinine 4.8. Case discussed with on-call orthopedic surgery at [facility] Lab Data Lab results reviewed: Yes I reviewed the patient's lab results. Labs: Laboratory Results - last 24 hr 06/01/20 06/01/20 06/01/20 17:07 17:07 17:07 WBC 16.47 H RBC 2.38 L Hgb 8.0 L Hct 26.9 L MCV 113.0 H MCH 33.6 H MCHC 29.7 L RDW 17.2 H Plt Count 304 D MPV 9.8 Immature Gran % See Differential Neutrophils % 88.0 Band Neutrophils % 3 Lymphocytes % 4.0 Monocytes % 2.0 Eosinophils % 1.0 Basophils % 0.0 Metamyelocytes % 1 Myelocytes % 1 Nucleated RBC % 0 Absolute Neutrophils 14.99 H Absolute Lymphocytes 0.66 L Absolute Monocytes 0.33 Absolute Eosinophils 0.16 Absolute Basophils 0.00 RBC Morphology See below Polychromasia Present Poikilocytosis 1+ Macrocytosis 3+ PT 12.7 H INR 1.3 H APTT 27.9 H Sodium 135 L Potassium 5.0 Chloride 98 Carbon Dioxide 29.3 Anion Gap 7.7 BUN 58 H Creatinine 4.89 H* Estimated GFR/1.73 m2 11.76 Glucose 97 Calcium 8.7 Magnesium 2.1 Total Bilirubin 0.5 AST 28 ALT 14 L Alkaline Phosphatase 214 H Total Protein 6.1 L Albumin 2.4 L Patient ABO/Rh Antibody Screen 06/01/20 17:07 WBC RBC Hgb Hct MCV MCH MCHC RDW Plt Count MPV Immature Gran % Neutrophils % Band Neutrophils % Lymphocytes % Monocytes % Eosinophils % Basophils % Metamyelocytes % Myelocytes % Nucleated RBC % Absolute Neutrophils Absolute Lymphocytes Absolute Monocytes Absolute Eosinophils Absolute Basophils RBC Morphology Polychromasia Poikilocytosis Macrocytosis PT INR APTT Sodium Potassium Chloride Carbon Dioxide Anion Gap BUN Creatinine Estimated GFR/1.73 m2 Glucose Calcium Magnesium Total Bilirubin AST ALT Alkaline Phosphatase Total Protein Albumin Patient ABO/Rh A Positive Antibody Screen Negative HPI General Mode of arrival: ambulatory. Date/Time Provider Initiated Documentation: 06/01/20 16:38. Limitations to Documentation: no limitations. Information obtained by: patient. History of Present Illness 74 year old M presents to the emergency department with the chief complaint of Bloody stools at rehab facility, described as moderate, Quality is described as dull, and is localized to the abdomen and pelvis. Patient reports no radiation. Patient started experiencing this unknown and it has been intermittent. No relieving factors improve symptom(s), No exacerbating factors reported . Patient notes denies weakness. Patient did receive the following treatments prior to arrival, none Related Data Home Medications Medication Instructions Recorded Confirmed simvastatin 40 mg PO DAILY 03/14/14 06/01/20 tamsulosin 2 tab PO HS 02/05/16 06/01/20 Carboxymethylcellulose Sodium 1 drp OPHTHALMIC QID PRN PRN 02/02/18 06/01/20 [Lubricant Eye Drop] allopurinol 200 mg PO DAILY 02/02/18 06/01/20 ferrous sulfate [Feosol] 325 mg PO DAILY 02/02/18 06/01/20 hydroxychloroquine 200 mg PO BID 02/02/18 06/01/20 acetaminophen [Tylenol Arthritis 650 mg PO PRN PRN 03/07/18 06/01/20 Pain] collagenase clostridium histo. 1 applic TOPICAL DAILY 05/17/19 06/01/20 fluticasone propionate 1 spray INTRANASAL Q12H 05/17/19 06/01/20 lidocaine 1 patch TOPICAL DAILY 05/17/19 06/01/20 paraffin applic MISCELLANEOUS QID 05/17/19 colchicine [Colcrys] 0.3 mg PO .TWICE WEEKLY 05/11/20 06/01/20 sevelamer carbonate 1,600 mg PO TID 05/11/20 06/01/20 omeprazole 20 mg PO DAILY PRN 05/20/20 06/01/20 aspirin 81 mg PO DAILY 06/01/20 06/01/20 folic acid 1 mg PO DAILY 06/01/20 06/01/20 lisinopril 2.5 mg PO DAILY 06/01/20 06/01/20 melatonin 3 mg PO HS PRN 06/01/20 06/01/20 metoprolol succinate 50 mg PO DAILY 06/01/20 06/01/20 oxycodone 5 - 7.5 mg PO Q4H PRN PRN 06/01/20 06/01/20 vitamin B complex 1 cap PO DAILY 06/01/20 06/01/20 Allergies Allergy/AdvReac Type Severity Reaction Status Date / Time Penicillins Allergy Severe Swelling/Ed Unverified 06/01/20 16:45 shantell dicloxacillin Allergy per [facility] Unverified 06/01/20 16:45 terazosin Allergy per [facility] Unverified 06/01/20 16:45 General Stated Complaint: GI Bleed AMADA: 2 Review of Systems Narrative: Chronic back and right hip pain. No difficulty breathing. [facility] Social History Smoking/Tobacco Use Status: Former Tobacco Use Smoking risk assessment performed?: Yes Alcohol Intake: never Drug use: Never Substance use type: does not use Do you feel safe at home: Yes Do you feel safe in your relationship?: Yes Exam Narrative Exam Narrative: GEN: awake, alert, oriented 3. Pleasant, well groomed, interactive. HEAD: Normocephalic, atraumatic ENT: Mucous membranes moist, External ear exam unremarkable EYES: PERRL, EOMI NECK: Full ROM, no JACQUIE, no menigismus CHEST/RESP: Nontender, clear to auscultation bilateral, no wheeze/rhonchi/rales. CARDIOVASCULAR: RRR, no murmur, rub adelso. 2+ Rad pulse bilateral ABDOMEN: Soft, nontender, no mass. +Bowel sounds. Rectal exam with bloody dark stool present. EXT: Limited range of motion. Healing surgical scar with no surrounding erythema or tenderness of the right hip. Palpable thrill right upper extremity AV fistula. Neuro: Grossly normal neurologic exam, conversant, interactive. Psych: Speech fluent, thoughts congruent, affect normal Course Vital Signs Vital signs: Vital Signs Temperature 36.4 C L 06/01/20 16:40 Pulse 68 06/01/20 16:40 Respiratory Rate 20 06/01/20 16:40 Blood Pressure 124/63 06/01/20 16:40 Pulse Oximetry 94 06/01/20 16:40 Temperature 36.4 C L 06/01/20 16:40 Temperature Source Skin 06/01/20 16:40 Pulse 68 06/01/20 16:40 Respiratory Rate 20 06/01/20 16:40 Blood Pressure 124/63 06/01/20 16:40 Blood Pressure Position Sitting 06/01/20 16:40 Pulse Oximetry 94 06/01/20 16:40 Oxygen Delivery Method Room Air 06/01/20 16:40 Oxygen Flow Rate 0 06/01/20 16:40
[2020-06-01 17:16] LABS: Abs Immature Grans 0.68 10^3/uL (0.0-0.06); HCT 26.9 % (40.0-50.0); MCH 33.6 pg (27.0-33.0); MCHC 29.7 % (32.0-36.0); MPV 9.8 fL (8.0-11.0); Nucleated RBC 0 %; RBC 2.38 10^6/uL (4.36-5.78); RDW 17.2 % (11.8-14.1); RDW-SD 68.5 fL; WBC 16.47 10^3/uL (4.4-10.8)
[2020-06-01 17:21] LABS: Platelet Count 304 10^3/uL (130-400)
[2020-06-01 17:29] LABS: ALT 14 U/L (16-63); AST 28 U/L (15-37); Albumin 2.4 g/dL (3.4-5.0); Alkaline Phosphatase 214 U/L (46-116); Anion Gap 7.7 mmol/L (3-11); BUN 58 mg/dL (7-18); Bilirubin, Total 0.5 mg/dL (0.2-1.0); CO2 29.3 mmol/L (21.0-32.0); Calcium 8.7 mg/dL (8.5-10.1); Chloride 98 mmol/L (98-107); Estimated GFR 11.76 (mL/min/1.73m2); Glucose 97 mg/dL (74-106); Magnesium 2.1 mg/dL (1.8-2.4); Sodium 135 mmol/L (136-145); Total Protein 6.1 g/dL (6.4-8.2)
[2020-06-01 17:30] LABS: INR 1.3 (0.9-1.1); PTT Activated 27.9 sec (21.0-27.5); Prothrombin Time 12.7 sec (9.3-11.0)
[2020-06-01 17:31] LABS: CREATININE 4.89 mg/dL (0.70-1.30)
[2020-06-01 17:35] LABS: Absolute Eosinophil Count 0.16 10^3/uL (0.0-0.7); Absolute Lymphocyte Count 0.66 10^3/uL (1.2-3.4); Absolute Monocyte Count 0.33 10^3/uL (0.1-0.8); Absolute Neutrophil Count 14.99 10^3/uL (1.2-6.7); Bands % 3; Diff Comment Manual Differential; Macrocytosis 3+; Metamyelocytes % 1; Myelocytes % 1
[2020-06-01 17:36] LABS: Poikilocytes 1+; Polychromasia Present
== END 2020-06-01 19:25 | disposition intermediate care facility (04) ==
PROVIDERS: Emergency Provider Emergency Medicine; PCP Nurse Practitioner Adult Health
DX: K92.1 Melena (principal); T45.515A Adverse effect of anticoagulants, initial encounter; Z79.01 Long term (current) use of anticoagulants; Y83.1 Surgical operation with implant of artificial internal device as the cause of abnormal reaction of the patient, or of later complication, without mention of misadventure at the time of the procedure; Z96.641 Presence of right artificial hip joint
CPT/HCPCS: 36415; 80053; 86850; 86900; 86901; 99283; 83735; 85025; 85610; 85730

== ENCOUNTER 2020-06-02 03:27 | Emergency (ER) | payer MEDICARE, OTHER, SELFPAY ==
[2020-06-02 03:34] VITALS: PULSE 82; RESP 24; TEMP 36.6; O2SAT 97
--- NOTE | 2020-06-02 03:48 | W.ED.GENAD ---
Discharge Plan Disposition Patient Disposition: HOME Condition: Stable Discharge Details Clinical Impression: Hematochezia Primary Care Provider: Stephania Weiss ED Provider: Berlin Cole Home Meds and New Rx's Prescriptions: Continued simvastatin 40 MG tablet 40 mg PO DAILY RF: 0 tamsulosin 0.4 MG capsule 2 tab PO HS RF: 0 allopurinol 100 MG tablet 200 mg PO DAILY RF: 0 ferrous sulfate [Feosol] 325 MG tablet 325 mg PO DAILY RF: 0 hydroxychloroquine 200 MG tablet 200 mg PO BID RF: 0 Carboxymethylcellulose Sodium [Lubricant Eye Drop] 15 ML Drops 1 drp Ophthalmic QID PRN PRNRF: 0 lidocaine 5 % Adhesive Patch,Medicated 1 patch TOPICAL DAILY RF: 0 metoprolol succinate 50 mg Tablet Extended Release 24 Hr 50 mg PO DAILY RF: 0 melatonin 3 mg Tablet 3 mg PO HS PRNRF: 0 aspirin 81 mg Tablet,Chewable 81 mg PO DAILY RF: 0 folic acid 1 mg Tablet 1 mg PO DAILY RF: 0 lisinopril 2.5 mg Tablet 2.5 mg PO DAILY RF: 0 vitamin B complex Capsule 1 cap PO DAILY RF: 0 oxycodone 5 mg Tablet 5 - 7.5 mg PO Q4H PRN PRNRF: 0 polyethylene glycol 3350 [Miralax] 17 gram Powder In Packet 17 g PO DAILY RF: 0 sennosides-docusate sodium 8.6-50 mg Tablet 1 tab-cap PO BID RF: 0 bisacodyl 10 mg Suppository 10 mg [place] DAILY RF: 0 acetaminophen [Tylenol Arthritis Pain] 650 mg Tablet Extended Release 650 mg PO PRN PRNRF: 0 colchicine [Colcrys] 0.6 mg tablet 0.3 mg PO .TWICE WEEKLY RF: 0 sevelamer carbonate 800 mg tablet 1,600 mg PO TID RF: 0 omeprazole 20 mg capsule,delayed release(DR/EC) 20 mg PO DAILY PRNRF: 0 Discharge Instructions Additional Instructions: your blood count was actually better today than it was yesterday, hemoglobin was 8.2 get dialysis as scheduled continue to hold heparin for the next 2 days if you feel more ill, have high heart rates over 110 or severe pain return to the emergency department Medical Decision Making 74 yo male with hx of esrd on dialysis //Mon who underwent repair [place] hip fracutre last [place] [facility] [place] comes in with continued rectal bleeding. He was seen last night and had hemoglobin of 8 and consulted with ortho at [facility] [place] who recommended holding his subcutaneous heparin for 2 days and restarting if bleeding stopped. He has had 3 large bloody bowel movements since per skilled nursing so [facility]. Denies any abdominal pain and has no tenderness on exam. Has a large blood clot coming fromthe rectum on exam. Suspect bleeding due to being given anticoagulation, last dose of heparin was given yesterday afternoon. Will repeat cbc and monitor. pt's hgb actually improved to 8.2 today and he is sleeping on reassessment. Easily awsakens and has no complaints. Offered to discuss case with [facility] [place] about possible transfer which he declines as his blood counts better and doesn't want to go to [place] and prefers to stay at rehab and have dialysis later. He has capacity to make his own decisions and understands risks of worsening bleeding including and disability. He will be discharged back to rehab and get dialysis later today and continue to hold heparin Differential Diagnosis Differential Diagnosis: lower gi bleed, anticoagulated HPI General Mode of arrival: EMS. Date/Time Provider Initiated Documentation: 06/02/20 03:27. Limitations to Documentation: no limitations. Information obtained by: patient. History of Present Illness 74 year old M presents to the emergency department with the chief complaint of bloody bowel movements, described as moderate, and it has been constant. No relieving factors improve symptom(s), No exacerbating factors reported . Patient did receive the following treatments prior to arrival, none Related Data Home Medications Medication Instructions Recorded Confirmed simvastatin 40 mg PO DAILY 03/14/14 06/02/20 tamsulosin 2 tab PO HS 02/05/16 06/02/20 Carboxymethylcellulose Sodium 1 drp OPHTHALMIC QID PRN PRN 02/02/18 06/02/20 [Lubricant Eye Drop] allopurinol 200 mg PO DAILY 02/02/18 06/02/20 ferrous sulfate [Feosol] 325 mg PO DAILY 02/02/18 06/02/20 hydroxychloroquine 200 mg PO BID 02/02/18 06/02/20 acetaminophen [Tylenol Arthritis 650 mg PO PRN PRN 03/07/18 06/02/20 Pain] lidocaine 1 patch TOPICAL DAILY 05/17/19 06/02/20 colchicine [Colcrys] 0.3 mg PO .TWICE WEEKLY 05/11/20 06/02/20 sevelamer carbonate 1,600 mg PO TID 05/11/20 06/02/20 omeprazole 20 mg PO DAILY PRN 05/20/20 06/02/20 aspirin 81 mg PO DAILY 06/01/20 06/02/20 folic acid 1 mg PO DAILY 06/01/20 06/02/20 lisinopril 2.5 mg PO DAILY 06/01/20 06/02/20 melatonin 3 mg PO HS PRN 06/01/20 06/02/20 metoprolol succinate 50 mg PO DAILY 06/01/20 06/02/20 oxycodone 5 - 7.5 mg PO Q4H PRN PRN 06/01/20 06/02/20 vitamin B complex 1 cap PO DAILY 06/01/20 06/02/20 bisacodyl 10 mg MN DAILY 06/02/20 06/02/20 polyethylene glycol 3350 [Miralax] 17 g PO DAILY 06/02/20 06/02/20 sennosides-docusate sodium 1 tab-cap PO BID 06/02/20 06/02/20 Allergies Allergy/AdvReac Type Severity Reaction Status Date / Time Penicillins Allergy Severe Swelling/Ed Unverified 06/01/20 16:45 shantell dicloxac[facility] Unverified 06/01/20 16:45 terazosin [facility] Unverified 06/01/20 16:45 General Stated Complaint: GI Bleed AMADA: 2 Review of Systems All systems reviewed & are unremarkable except as noted in HPI and below Constitutional Constitutional: Denies chills, Denies fever(s) and Denies weakness Cardiovascular Cardiovascular: Denies chest pain and Denies dyspnea Respiratory Respiratory: Denies cough and Denies dyspnea Gastrointestinal Gastrointestinal: Denies abdominal pain, Denies nausea and Denies vomiting Neurologic Neurologic: Denies weakness Psychiatric Psychiatric: Denies depression [facility] Social History Smoking/Tobacco Use Status: Former Tobacco Use Smoking risk assessment performed?: Yes Alcohol Intake: never Drug use: Never Substance use type: does not use Do you feel safe at home: Yes Do you feel safe in your relationship?: Yes Exam Const General: no acute distress Orientation: alert HENMT Head: normal to inspection Ears: external ears normal General nose exam: external nose normal Mouth: moist mucous membranes Eyes General: appearance normal, both eyes and all related structures Neck Neck: normal visual inspection Resp Effort & Inspection: normal respiratory effort and able to speak in complete sentences Cardio Rate: regular rate GI Palpation: soft Skin General skin exam: no rashes or lesions noted Neuro General: patient alert and patient oriented x3 Extrem General: normal to inspection Psych Mental Status: mental status grossly normal Course Vital Signs Vital signs: Vital Signs Temperature 36.6 C 06/02/20 03:34 Pulse 82 06/02/20 03:34 Respiratory Rate 24 06/02/20 03:34 Pulse Oximetry 97 06/02/20 03:34 Temperature 36.6 C 06/02/20 03:34 Temperature Source Skin 06/02/20 03:34 Pulse 82 06/02/20 03:34 Respiratory Rate 24 06/02/20 03:34 Respiratory Effort 06/02/20 03:37 Blood Pressure Position Supine 06/02/20 03:34 Pulse Oximetry 97 06/02/20 03:34 Pain Level 5 06/02/20 03:34
--- NOTE | 2020-06-02 03:53 | NUR.NOTE ---
large right hip incision C/D/I. No redness, swelling or drainage noted. +PP with doppler to BLE. trace edema to chris feet. Pt rolled and noted to have smears of bloody stool in brief.
[2020-06-02 04:08] LABS: Abs Immature Grans 0.77 10^3/uL (0.0-0.06); Absolute Basophil Count 0.06 10^3/uL (0.0-0.2); Absolute Lymphocyte Count 0.52 10^3/uL (1.2-3.4); Absolute Neutrophil Count 12.56 10^3/uL (1.2-6.7); Basophils % 0.4; Eosinophils % 0.7; HCT 27.2 % (40.0-50.0); HGB 8.2 g/dL (13.5-17.5); Immature Grans % 5.5; Lymphocytes % 3.7; MCH 34.3 pg (27.0-33.0); MCHC 30.1 % (32.0-36.0); MCV 113.8 fL (80-95); MPV 10.1 fL (8.0-11.0); Monocytes % 0.7; Nucleated RBC 0 %; Platelet Count 364 10^3/uL (130-400); RBC 2.39 10^6/uL (4.36-5.78); RDW 17.2 % (11.8-14.1); RDW-SD 70.3 fL; WBC 14.11 10^3/uL (4.4-10.8)
[2020-06-02 04:26] LABS: INR 1.3 (0.9-1.1); PTT Activated 25.1 sec (21.0-27.5); Prothrombin Time 12.7 sec (9.3-11.0)
[2020-06-02 04:27] VITALS: BP 111/56; PULSE 83; RESP 24; O2SAT 92
[2020-06-02 04:28] LABS: ALT 16 U/L (16-63); AST 41 U/L (15-37); Albumin 2.5 g/dL (3.4-5.0); Alkaline Phosphatase 227 U/L (46-116); BUN 67 mg/dL (7-18); Bilirubin, Total 0.6 mg/dL (0.2-1.0); Calcium 8.8 mg/dL (8.5-10.1); Chloride 98 mmol/L (98-107); Glucose 109 mg/dL (74-106); Potassium 5.9 mmol/L (3.5-5.1); Sodium 134 mmol/L (136-145); Total Protein 6.6 g/dL (6.4-8.2)
[2020-06-02 04:31] LABS: CREATININE 5.31 mg/dL (0.70-1.30)
[2020-06-02 04:41] LABS: Diff Comment Agrees w/ Instrument
--- NOTE | 2020-06-02 04:41 | NUR.NOTE ---
Multiple attempts to obtain IV access using ultrasound, unable. MD Cole aware, plan for DC back to rehab.
[2020-06-02 04:42] LABS: Macrocytosis 1+
== END 2020-06-02 05:00 | disposition home or self-care (01) ==
LOC: ER 05:33
PROVIDERS: Emergency Provider Emergency Medicine; PCP Nurse Practitioner Adult Health
DX: K92.1 Melena (principal); T45.515A Adverse effect of anticoagulants, initial encounter; I12.0 Hypertensive chronic kidney disease with stage 5 chronic kidney disease or end stage renal disease; N18.6 End stage renal disease; Z99.2 Dependence on renal dialysis
CPT/HCPCS: 80053; 86850; 86900; 86901; 99283; 85025; 85610; 85730

== ENCOUNTER 2020-06-02 18:00 | Emergency (ER) | payer MEDICARE, OTHER, SELFPAY ==
[2020-06-02] VITALS (31 sets, daily range): BP systolic 58–109; BP diastolic 18–86; PULSE 22–79; RESP 17–44; TEMP 36.7; O2SAT 95–100
--- NOTE | 2020-06-02 18:14 | W.ED.GENAD ---
Discharge Plan Disposition Patient Disposition: [facility] Condition: Critical Discharge Details Clinical Impression: Acute gastrointestinal bleeding, Acute on chronic anemia, Acute hypotension, S/P hip replacement, Anticoagulated on heparin Primary Care Provider: Stephania Weiss ED Provider: Tricia King Home Meds and New Rx's Prescriptions: No Action simvastatin 40 MG tablet 40 mg PO DAILY RF: 0 tamsulosin 0.4 MG capsule 2 tab PO HS RF: 0 allopurinol 100 MG tablet 200 mg PO DAILY RF: 0 ferrous sulfate [Feosol] 325 MG tablet 325 mg PO DAILY RF: 0 hydroxychloroquine 200 MG tablet 200 mg PO BID RF: 0 Carboxymethylcellulose Sodium [Lubricant Eye Drop] 15 ML Drops 1 drp Ophthalmic QID PRN PRNRF: 0 lidocaine 5 % Adhesive Patch,Medicated 1 patch TOPICAL DAILY RF: 0 metoprolol succinate 50 mg Tablet Extended Release 24 Hr 50 mg PO DAILY RF: 0 melatonin 3 mg Tablet 3 mg PO HS PRNRF: 0 aspirin 81 mg Tablet,Chewable 81 mg PO DAILY RF: 0 folic acid 1 mg Tablet 1 mg PO DAILY RF: 0 lisinopril 2.5 mg Tablet 2.5 mg PO DAILY RF: 0 vitamin B complex Capsule 1 cap PO DAILY RF: 0 oxycodone 5 mg Tablet 5 - 7.5 mg PO Q4H PRN PRNRF: 0 polyethylene glycol 3350 [Miralax] 17 gram Powder In Packet 17 g PO DAILY RF: 0 sennosides-docusate sodium 8.6-50 mg Tablet 1 tab-cap PO BID RF: 0 bisacodyl 10 mg Suppository 10 mg [place] DAILY RF: 0 acetaminophen [Tylenol Arthritis Pain] 650 mg Tablet Extended Release 650 mg PO PRN PRNRF: 0 colchicine [Colcrys] 0.6 mg tablet 0.3 mg PO .TWICE WEEKLY RF: 0 sevelamer carbonate 800 mg tablet 1,600 mg PO TID RF: 0 omeprazole 20 mg capsule,delayed release(DR/EC) 20 mg PO DAILY PRNRF: 0 Discharge Data Discharge Date/Time-TO BE ENTERED AT DEPARTURE: 06/02/20 20:26 Medical Decision Making 1809 --74-year-old male with a history of hypertension, hyperlipidemia, end-stage renal disease on dialysis presents for the third time in 24 hours for maroon and black tarry stools. Patient seen here twice since last night for GI bleeding and initially had a hemoglobin of 8 and was advised by [facility] Ortho to hold his heparin for 2 days until bleeding stopped. He was seen here this morning for continued bleeding and his hemoglobin improved to 8.2 and was discharged back to the rehab. Patient had significant large dark maroon blood and black tarry stools on sheet on arrival to the ED. He is pale and blood pressure soft at 94/57. Heart rate 70s but he is on metoprolol. He is afebrile. His abdomen is soft and nontender. 1844 -- Screening labs obtained and note a hemoglobin of 6.3. Around this time blood pressure decreased to 77/41. 2 units of RBCs ordered. Protonix IV bolus and drip ordered. Patient demanding to be transferred to the [facility]. Discussed with patient the concern for the seriousness of his current condition and that [facility] may be his best option at this time but he is refusing and would like transfer to the [facility]. Case discussed with [facility] attending and they do not have an LR and unable to accept patient. Case discussed with [facility] ICU attending and fellow, accepting physician Dr. Fry. Recommend DDAVP or TXA if bleeding continues and not responding to transfusion. Patient agreeable with plan for transfer. [facility] not flying due to weather. Plan discussed with patient's and she is agreeable. 1914 -- BP improved to 95/33 after 1 unit of blood. 2009 -- patient given 1/3 unit of blood prior to transfer. BP 102/61. HR 70s. Skin color more pink. Medical Records Medical records reviewed: Yes I reviewed the patient's medical records. Lab Data Lab results reviewed: Yes I reviewed the patient's lab results. Labs: Laboratory Tests Range/Units 06/02/20 06/02/20 06/02/20 18:28 18:28 18:28 WBC (4.4-10.8) 10^3/uL 28.61 H* D RBC (4.36-5.78) 10^6/uL 1.83 L Hgb (13.5-17.5) g/dL 6.3 L* Hct (40.0-50.0) % 20.4 L* D MCV (80-95) fL 111.5 H MCH (27.0-33.0) pg 34.4 H MCHC (32.0-36.0) % 30.9 L RDW (11.8-14.1) % 17.2 H Plt Count (130-400) 10^3/uL 251 D MPV (8.0-11.0) fL 9.6 Immature Gran % 1.6 Neutrophils % 91.4 Lymphocytes % 0.9 Monocytes % 5.8 Eosinophils % 0.1 Basophils % 0.2 Nucleated RBC % % 0 Absolute Neutrophils (1.2-6.7) 10^3/uL 26.15 H Absolute Lymphocytes (1.2-3.4) 10^3/uL 0.26 L Absolute Monocytes (0.1-0.8) 10^3/uL 1.66 H Absolute Eosinophils (0.0-0.7) 10^3/uL 0.03 Absolute Basophils (0.0-0.2) 10^3/uL 0.06 RBC Morphology See below Hypochromasia 2+ Anisocytosis 2+ Macrocytosis 3+ Stomatocytes 2+ PT (9.3-11.0) sec 13.5 H INR (0.9-1.1) 1.3 H APTT (21.0-27.5) sec 28.8 H Sodium (136-145) mmol/L 136 Potassium (3.5-5.1) mmol/L 4.1 D Chloride (98-107) mmol/L 99 Carbon Dioxide (21.0-32.0) mmol/L 32.6 H Anion Gap (3-11) mmol/L 4.4 BUN (7-18) mg/dL 35 H D Creatinine (0.70-1.30) mg/dL 3.08 H Estimated GFR/1.73 m2 (mL/min/1.73m2) 20.05 Glucose (74-106) mg/dL 109 H Calcium (8.5-10.1) mg/dL 8.0 L Total Bilirubin (0.2-1.0) mg/dL 0.6 AST (15-37) U/L 34 ALT (16-63) U/L 13 L Alkaline Phosphatase (46-116) U/L 204 H Total Protein (6.4-8.2) g/dL 5.5 L Albumin (3.4-5.0) g/dL 2.1 L Patient ABO/Rh Antibody Screen Crossmatch Range/Units 06/02/20 18:28 WBC (4.4-10.8) 10^3/uL RBC (4.36-5.78) 10^6/uL Hgb (13.5-17.5) g/dL Hct (40.0-50.0) % MCV (80-95) fL MCH (27.0-33.0) pg MCHC (32.0-36.0) % RDW (11.8-14.1) % Plt Count (130-400) 10^3/uL MPV (8.0-11.0) fL Immature Gran % Neutrophils % Lymphocytes % Monocytes % Eosinophils % Basophils % Nucleated RBC % % Absolute Neutrophils (1.2-6.7) 10^3/uL Absolute Lymphocytes (1.2-3.4) 10^3/uL Absolute Monocytes (0.1-0.8) 10^3/uL Absolute Eosinophils (0.0-0.7) 10^3/uL Absolute Basophils (0.0-0.2) 10^3/uL RBC Morphology Hypochromasia Anisocytosis Macrocytosis Stomatocytes PT (9.3-11.0) sec INR (0.9-1.1) APTT (21.0-27.5) sec Sodium (136-145) mmol/L Potassium (3.5-5.1) mmol/L Chloride (98-107) mmol/L Carbon Dioxide (21.0-32.0) mmol/L Anion Gap (3-11) mmol/L BUN (7-18) mg/dL Creatinine (0.70-1.30) mg/dL Estimated GFR/1.73 m2 (mL/min/1.73m2) Glucose (74-106) mg/dL Calcium (8.5-10.1) mg/dL Total Bilirubin (0.2-1.0) mg/dL AST (15-37) U/L ALT (16-63) U/L Alkaline Phosphatase (46-116) U/L Total Protein (6.4-8.2) g/dL Albumin (3.4-5.0) g/dL Patient ABO/Rh A Positive Antibody Screen Negative Crossmatch See Detail ECG Data Attestation: I personally reviewed and interpreted this ECG (s) as follows: Interpretation: Rate of 77, sinus, T wave inversion in [address] No acute [address] elevation or depression. TX 175. QRS 124. QTc 482. HPI General Mode of arrival: EMS. Date/Time Provider Initiated Documentation: 06/02/20 18:03. Limitations to Documentation: physical limitation. Information obtained by: patient. HPI Narrative: Patient is a 74-year-old male with a history of gout, hypertension, high cholesterol, kidney stone, end-stage renal disease on dialysis who is 1 week status post right partial hip replacement at [facility] who presents for continued GI bleeding since yesterday. Patient was seen here twice since yesterday for GI bleeding and had a hemoglobin of 8 which then increased to 8.2 this morning and was discharged both times back to the rehab. Staff at the rehab states that his dark maroon and black tarry stools restarted within the last couple hours and they are sending him here for admission or transfer to another facility as they are unable to manage this any further. Patient denies any fever, nausea, vomiting, abdominal pain. Related Data Home Medications Medication Instructions Recorded Confirmed simvastatin 40 mg PO DAILY 03/14/14 06/02/20 tamsulosin 2 tab PO HS 02/05/16 06/02/20 Carboxymethylcellulose Sodium 1 drp OPHTHALMIC QID PRN PRN 02/02/18 06/02/20 [Lubricant Eye Drop] allopurinol 200 mg PO DAILY 02/02/18 06/02/20 ferrous sulfate [Feosol] 325 mg PO DAILY 02/02/18 06/02/20 hydroxychloroquine 200 mg PO BID 02/02/18 06/02/20 acetaminophen [Tylenol Arthritis 650 mg PO PRN PRN 03/07/18 06/02/20 Pain] lidocaine 1 patch TOPICAL DAILY 05/17/19 06/02/20 colchicine [Colcrys] 0.3 mg PO .TWICE WEEKLY 05/11/20 06/02/20 sevelamer carbonate 1,600 mg PO TID 05/11/20 06/02/20 omeprazole 20 mg PO DAILY PRN 05/20/20 06/02/20 aspirin 81 mg PO DAILY 06/01/20 06/02/20 folic acid 1 mg PO DAILY 06/01/20 06/02/20 lisinopril 2.5 mg PO DAILY 06/01/20 06/02/20 melatonin 3 mg PO HS PRN 06/01/20 06/02/20 metoprolol succinate 50 mg PO DAILY 06/01/20 06/02/20 oxycodone 5 - 7.5 mg PO Q4H PRN PRN 06/01/20 06/02/20 vitamin B complex 1 cap PO DAILY 06/01/20 06/02/20 bisacodyl 10 mg [place] DAILY 06/02/20 06/02/20 polyethylene glycol 3350 [Miralax] 17 g PO DAILY 06/02/20 06/02/20 sennosides-docusate sodium 1 tab-cap PO BID 06/02/20 06/02/20 Allergies Allergy/AdvReac Type Severity Reaction Status Date / Time Penicillins Allergy Severe Swelling/Ed Unverified 06/02/20 18:09 shantell dicloxacillin [facility] Unverified 06/02/20 18:09 terazosin All[facility] Unverified 06/02/20 18:09 General Stated Complaint: GI Bleed AMADA: 2 Review of Systems All systems reviewed & are unremarkable except as noted in HPI and below Constitutional Constitutional: Reports as per HPI, Denies chills and Denies fever(s) Eyes Eyes: Denies blurry vision ENT Ears, Nose, Mouth, and Throat: Denies dizziness, Denies sore throat and Denies throat swelling Cardiovascular Cardiovascular: Denies chest pain and Denies dyspnea Respiratory Respiratory: Denies cough and Denies dyspnea Gastrointestinal Gastrointestinal: Denies abdominal pain, Reports melena, Reports hematochezia, Denies diarrhea and Denies vomiting Genitourinary Genitourinary: Denies hematuria and Denies dysuria Musculoskeletal Musculoskeletal: Denies back pain and Denies numbness Integumentary/Breasts Skin/Breast: Denies lesions and Denies rash Neurologic Neurologic: Denies dizziness, Denies localized weakness and Denies numbness Allergic/Immunologic Allergic/Immunologic: Denies throat swelling [facility] Medical History (Updated 06/02/20 @ 19:53 by Tricia King DO) ESRD (end stage renal disease) on dialysis Gout HTN (hypertension) Hx of hyperlipidemia Kidney stones Surgical History (Updated 06/02/20 @ 19:53 by Tricia King DO) Fistula History of tonsillectomy Social History Smoking/Tobacco Use Status: Former Tobacco Use Smoking risk assessment performed?: Yes Alcohol Intake: never Drug use: Never Substance use type: does not use Do you feel safe at home: Yes Do you feel safe in your relationship?: Yes Exam Const General: cooperative and ill appearing acutely Orientation: alert, awake and oriented x3 HENMT Head: normal to inspection Ears: hearing grossly normal bilaterally and external ears normal General nose exam: external nose normal Face and sinus: normal facial exam Mouth: oral mucosae normal Teeth and gingiva: dentition normal Throat: posterior oropharynx normal Eyes General: appearance normal, both eyes and all related structures Eyelids: eyelids normal EOM: EOM intact bilaterally Neck Neck: normal visual inspection Lymphatic: no lymphadenopathy noted Chest Chest: normal inspection of the chest Resp Effort & Inspection: normal respiratory effort and able to speak in complete sentences Auscultation: clear to auscultation bilaterally Cardio Rate: regular rate Rhythm: regular rhythm GI Inspection: normal to inspection and obesity Palpation: soft, not firm, no guarding, no hepatosplenomegaly, no masses and nontender Auscultation: normal bowel sounds Back/Spine/Pelvis Thoracic/Lumbar Spine: thoracic and lumbar spine normal to inspection Skin General skin exam: no rashes or lesions noted and pallor Neuro General: patient alert and patient awake Cognition: normal cognition Speech: speech normal Sensory Exam: no sensory deficits noted Extrem Other: Atrophic contracted right leg. Right hip laceration healing well without signs of cellulitis. 1+ pitting edema bilateral lower extremities. Psych Appearance: grossly normal Mental Status: mental status grossly normal Speech and Movement: speech and movement normal Affect: normal affect Thought Process: normal Course Vital Signs Vital signs: Vital Signs Temperature 98.1 F 06/02/20 18:06 Pulse 79 06/02/20 18:06 Respiratory Rate 20 06/02/20 18:06 Blood Pressure 94/57 L 06/02/20 18:06 Pulse Oximetry 96 06/02/20 18:06 Temperature 98.1 F 06/02/20 18:06 Temperature Source Skin 06/02/20 18:06 Pulse 79 06/02/20 18:06 Respiratory Rate 20 06/02/20 18:06 Blood Pressure 94/57 L 06/02/20 18:06 Blood Pressure Position Sitting 06/02/20 18:06 Pulse Oximetry 96 06/02/20 18:06 Oxygen Delivery Method Room Air 06/02/20 18:06 Oxygen Flow Rate 0 06/02/20 18:06 Critical Care Time Critical Care Time Critical Care Time: Yes Total Critical Care Time: 90 Attestation: I spent 90 minutes of critical care time with this patient. This does not include time spent on separately reported billable procedures.
--- NOTE | 2020-06-02 18:30 | RT.EKG_ITS ---
APPROVED REPORT Exam: Resting ECG Patient Location: E HR:77 bpm ECG Measurements Heart Rate 77 AXIS WV 175 P 34 QRSd 124 QRS -7 QT 426 T 127 QTc 482 Conclusion Sinus rhythm...normal P axis, V-rate 60- 99 Nonspecific intraventricular conduction delay...QRSd >115mS, not LBBB/RBBB Inferior infarct, old...Q >35mS, II III aVF Nonspecific T abnormalities, lateral leads...T <-0.10mV, I aVL V5 V6 I have reviewed and interpreted ECG and agree with software generated interpretation.
[2020-06-02 18:45] LABS: Abs Immature Grans 0.46 10^3/uL (0.0-0.06); Absolute Lymphocyte Count 0.26 10^3/uL (1.2-3.4); Absolute Neutrophil Count 26.15 10^3/uL (1.2-6.7); Basophils % 0.2; Eosinophils % 0.1; Immature Grans % 1.6; Lymphocytes % 0.9; MCH 34.4 pg (27.0-33.0); MCHC 30.9 % (32.0-36.0); MCV 111.5 fL (80-95); MPV 9.6 fL (8.0-11.0); Monocytes % 5.8; Neutrophils % 91.4; Nucleated RBC 0 %; Platelet Count 251 10^3/uL (130-400); RBC 1.83 10^6/uL (4.36-5.78); RDW 17.2 % (11.8-14.1); RDW-SD 67.7 fL
[2020-06-02 18:47] LABS: Absolute Basophil Count 0.06 10^3/uL (0.0-0.2); Absolute Eosinophil Count 0.03 10^3/uL (0.0-0.7); Absolute Monocyte Count 1.66 10^3/uL (0.1-0.8)
[2020-06-02 18:49] LABS: HGB 6.3 g/dL (13.5-17.5); WBC 28.61 10^3/uL (4.4-10.8)
[2020-06-02 18:50] LABS: HCT 20.4 % (40.0-50.0)
[2020-06-02 18:56] LABS: PTT Activated 28.8 sec (21.0-27.5); Prothrombin Time 13.5 sec (9.3-11.0)
[2020-06-02 18:57] LABS: ALT 13 U/L (16-63); AST 34 U/L (15-37); Albumin 2.1 g/dL (3.4-5.0); Alkaline Phosphatase 204 U/L (46-116); Anion Gap 4.4 mmol/L (3-11); BUN 35 mg/dL (7-18); Bilirubin, Total 0.6 mg/dL (0.2-1.0); CO2 32.6 mmol/L (21.0-32.0); CREATININE 3.08 mg/dL (0.70-1.30); Chloride 99 mmol/L (98-107); Estimated GFR 20.05 (mL/min/1.73m2); Glucose 109 mg/dL (74-106); Potassium 4.1 mmol/L (3.5-5.1); Sodium 136 mmol/L (136-145); Total Protein 5.5 g/dL (6.4-8.2)
[2020-06-02] MEDS: Normal Saline 1,000 ML 125 ML IV ×2 (18:58→19:04)
[2020-06-02 18:59] LABS: Diff Comment RBC Morph Reviewed
[2020-06-02 19:00] LABS: Anisocytosis 2+; Hypochromasia 2+; Macrocytosis 3+; Stomatocytes 2+
[2020-06-02] MEDS: Pantoprazole 40 MG VIAL IVP (19:04)
[2020-06-02] MEDS: PANTOPRAZOLE 80 MG in Normal Saline 100 ML 10 MG IV (19:06)
[2020-06-02 19:07] LABS: INR 1.3 (0.9-1.1)
== END 2020-06-02 20:26 | disposition short-term general hospital (02) ==
PROVIDERS: Emergency Provider Physician Assistant; PCP Nurse Practitioner Adult Health
DX: K92.2 Gastrointestinal hemorrhage, unspecified (principal); I95.0 Idiopathic hypotension; T45.515A Adverse effect of anticoagulants, initial encounter; Z79.01 Long term (current) use of anticoagulants; I12.0 Hypertensive chronic kidney disease with stage 5 chronic kidney disease or end stage renal disease; N18.6 End stage renal disease; Z99.2 Dependence on renal dialysis; D53.9 Nutritional anemia, unspecified; Z96.641 Presence of right artificial hip joint
CPT/HCPCS: 36415; 36430; 80053; 86850; 86900; 86901; 86920; 86945; 93005; 96361; 96365; 96375; 99283; 99291; 99292; 85025; 85610; 85730; 93010; P9016

== ENCOUNTER 2020-06-20 15:35 | Outpatient (REF) | payer SELFPAY ==
[2020-06-22 21:09] LABS: COVID-19 RT-PCR UVMMC Result Negative (Negative)
== END 2020-06-20 15:55 ==
LOC: NCHCN 15:35
PROVIDERS: PCP Nurse Practitioner Adult Health; Visit Provider Nurse Practitioner Adult Health
DX: Z11.59 Encounter for screening for other viral diseases (principal)
CPT/HCPCS: U0003

== ENCOUNTER 2020-06-22 16:24 | Outpatient (REF) | payer SELFPAY ==
[2020-06-22 18:16] LABS: Abs Immature Grans 0.03 10^3/uL (0.0-0.06); Absolute Basophil Count 0.06 10^3/uL (0.0-0.2); Absolute Lymphocyte Count 0.43 10^3/uL (1.2-3.4); Absolute Monocyte Count 0.73 10^3/uL (0.1-0.8); Absolute Neutrophil Count 6.21 10^3/uL (1.2-6.7); Basophils % 0.8; HCT 39.6 % (40.0-50.0); Immature Grans % 0.4; Lymphocytes % 5.8; MCH 32.3 pg (27.0-33.0); MCHC 30.3 % (32.0-36.0); MCV 106.5 fL (80-95); MPV 9.9 fL (8.0-11.0); Monocytes % 9.8; Neutrophils % 83.2; Nucleated RBC 0 %; Platelet Count 227 10^3/uL (130-400); RBC 3.72 10^6/uL (4.36-5.78); RDW 17.6 % (11.8-14.1); WBC 7.46 10^3/uL (4.4-10.8)
[2020-06-22 18:21] LABS: Anion Gap 6.7 mmol/L (3-11); BUN 23 mg/dL (7-18); CO2 31.3 mmol/L (21.0-32.0); CREATININE 2.45 mg/dL (0.70-1.30); Calcium 8.7 mg/dL (8.5-10.1); Chloride 99 mmol/L (98-107); Estimated GFR 26.12 (mL/min/1.73m2); Glucose 112 mg/dL (74-106); Potassium 3.7 mmol/L (3.5-5.1); Sodium 137 mmol/L (136-145)
[2020-06-22 18:27] LABS: Diff Comment RBC Morph Reviewed
[2020-06-22 18:30] LABS: Macrocytosis 1+
== END 2020-06-22 16:44 ==
LOC: LBN 16:24
PROVIDERS: PCP Nurse Practitioner Adult Health; Visit Provider Nurse Practitioner Adult Health
DX: N18.6 End stage renal disease (principal); D53.9 Nutritional anemia, unspecified
CPT/HCPCS: 80048; 85025

== ENCOUNTER 2020-06-26 16:30 | Outpatient (REF) | payer MEDICARE, OTHER, SELFPAY ==
[2020-07-01 13:37] LABS: COVID-19 RT-PCR Result Not Detected ((See Note))
== END 2020-06-26 16:50 ==
LOC: LBN 16:30
PROVIDERS: PCP Nurse Practitioner Adult Health; Visit Provider Nurse Practitioner Adult Health
DX: Z11.59 Encounter for screening for other viral diseases (principal)
CPT/HCPCS: U0003

== ENCOUNTER 2020-06-30 22:36 | Outpatient (REF) | payer SELFPAY ==
[2020-07-01 01:40] LABS: COVID-19 RT-PCR UVMMC Result Negative (Negative)
== END 2020-06-30 22:56 ==
LOC: LBN 22:36
PROVIDERS: PCP Nurse Practitioner Adult Health; Visit Provider Nurse Practitioner Adult Health
DX: Z11.59 Encounter for screening for other viral diseases (principal)
CPT/HCPCS: U0003

== ENCOUNTER 2020-07-06 16:19 | Outpatient (REF) | payer SELFPAY ==
[2020-07-06 17:11] LABS: Abs Immature Grans 0.15 10^3/uL (0.0-0.06); Absolute Basophil Count 0.06 10^3/uL (0.0-0.2); Absolute Eosinophil Count 0.06 10^3/uL (0.0-0.7); Absolute Lymphocyte Count 0.57 10^3/uL (1.2-3.4); Absolute Monocyte Count 0.89 10^3/uL (0.1-0.8); Absolute Neutrophil Count 7.16 10^3/uL (1.2-6.7); Basophils % 0.7; Eosinophils % 0.7; HCT 41.1 % (40.0-50.0); HGB 12.5 g/dL (13.5-17.5); Immature Grans % 1.7; Lymphocytes % 6.4; MCH 31.7 pg (27.0-33.0); MCHC 30.4 % (32.0-36.0); MCV 104.3 fL (80-95); MPV 10.4 fL (8.0-11.0); Neutrophils % 80.5; Nucleated RBC 0 %; Platelet Count 256 10^3/uL (130-400); RBC 3.94 10^6/uL (4.36-5.78); RDW 16.7 % (11.8-14.1); RDW-SD 64.5 fL; WBC 8.89 10^3/uL (4.4-10.8)
[2020-07-06 17:29] LABS: ALT 29 U/L (16-63); AST 29 U/L (15-37); Albumin 2.9 g/dL (3.4-5.0); Alkaline Phosphatase 300 U/L (46-116); BUN 62 mg/dL (7-18); Bilirubin, Total 0.7 mg/dL (0.2-1.0); C-Reactive Protein 0.84 mg/dL (0.0-0.3); Calcium 9.1 mg/dL (8.5-10.1); Chloride 99 mmol/L (98-107); Estimated GFR 12.85 (mL/min/1.73m2); Glucose 101 mg/dL (74-106); Potassium 4.9 mmol/L (3.5-5.1); Sodium 136 mmol/L (136-145); Total Protein 6.6 g/dL (6.4-8.2)
[2020-07-06 18:57] LABS: CREATININE 4.53 mg/dL (0.70-1.30)
== END 2020-07-06 16:39 ==
LOC: LBN 16:19
PROVIDERS: PCP Nurse Practitioner Adult Health; Visit Provider Family Medicine
DX: M05.9 Rheumatoid arthritis with rheumatoid factor, unspecified (principal); D64.9 Anemia, unspecified; N18.6 End stage renal disease
CPT/HCPCS: 80053; 85025; 86140

== ENCOUNTER 2020-07-10 20:26 | Outpatient (REF) | payer MEDICARE, OTHER, SELFPAY ==
[2020-07-11 17:27] LABS: COVID-19 RT-PCR Result Not Detected ((See Note))
== END 2020-07-10 20:46 ==
LOC: LBN 20:26
PROVIDERS: PCP Nurse Practitioner Adult Health; Visit Provider Nurse Practitioner Adult Health
DX: Z11.59 Encounter for screening for other viral diseases (principal)
CPT/HCPCS: U0003

== ENCOUNTER 2020-07-15 16:03 | Outpatient (REF) | payer MEDICARE, OTHER, SELFPAY ==
[2020-07-16 16:47] LABS: COVID-19 RT-PCR Result Not Detected ((See Note))
== END 2020-07-15 16:23 ==
LOC: LBN 16:03
PROVIDERS: PCP Nurse Practitioner Adult Health; Visit Provider Nurse Practitioner Adult Health
DX: Z11.52 Encounter for screening for COVID-19 (principal)
CPT/HCPCS: U0003

== ENCOUNTER 2020-08-05 15:16 | Outpatient (REF) | payer MEDICARE, OTHER, SELFPAY ==
[2020-08-06 14:57] LABS: COVID-19 RT-PCR Result Not Detected ((See Note))
== END 2020-08-05 15:17 | disposition home or self-care (01) ==
LOC: LBN 15:16
PROVIDERS: PCP Nurse Practitioner Adult Health; Visit Provider Nurse Practitioner Adult Health
DX: Z11.52 Encounter for screening for COVID-19 (principal)
CPT/HCPCS: U0003; U0005

== ENCOUNTER 2020-08-07 01:49 | Outpatient (REF) | payer MEDICARE, OTHER, SELFPAY ==
[2020-08-07 03:12] LABS: C Diff PCR Positive (Negative)
== END 2020-08-07 01:50 | disposition home or self-care (01) ==
LOC: LBN 01:49
PROVIDERS: PCP Nurse Practitioner Adult Health; Visit Provider Family Medicine
DX: A04.71 Enterocolitis due to Clostridium difficile, recurrent (principal)
CPT/HCPCS: 87493; 82272

== ENCOUNTER 2020-08-11 03:28 | Emergency (ER) | payer MEDICARE, OTHER, SELFPAY ==
[2020-08-11] VITALS (19 sets, daily range): BP systolic 78–99; BP diastolic 49–61; PULSE 68–86; RESP 14–32; TEMP 36.5; O2SAT 92–100
--- NOTE | 2020-08-11 02:30 | RT.EKG_ITS ---
APPROVED REPORT Exam: Resting ECG Patient Location: E HR:77 bpm ECG Measurements Heart Rate 77 AXIS DC 192 P 9 QRSd 124 QRS -5 QT 422 T 125 QTc 477 Conclusion Sinus rhythm...normal P axis, V-rate 60- 99 Supraventricular bigeminy...bigeminy string>4 w/ SV complexes Left bundle branch block...QRSd>120, broad/notched R Physician: Sinus rhythm, rate 77, QRS wide at 124, no STEMI, no significant change from review of león or recent EKGs
--- NOTE | 2020-08-11 02:45 | DI.CT_ITS ---
EXAM: CT HEAD - STROKE PROTOCOL CLINICAL HISTORY: altered. TECHNIQUE: Imaging Protocol: Axial computed tomography images with coronal and sagittal reformatted images were created and reviewed COMPARISON: CT CT HEAD CERVICAL SPINE WO from 04/10/2020 FINDINGS: Ventricles and Extra axial spaces: Normal in size and morphology for the patient's age. Hemorrhage: None. Cerebral parenchyma: There are areas of decreased attenuation in the white matter consistent with chr onic small vessel ischemic disease. No acute territorial infarct is present. Midline shift: None. Brainstem/Cerebellum: Normal. Calvarium: Normal. Visualized Paranasal sinuses/Mastoids: Clear. Soft Tissues: Unremarkable. IMPRESSION: No acute intracranial process. RADIATION DOSE DELIVERED: 878.35mGy.cm Total DLP DATA REPOSITORY: All CT scans at this facility are submitted to the National Radiology Data Registry (NRDR) Dose Index Registry (DIR) with the [employer] ([employer]). RADIATION OPTIMIZATION: All CT scans at this facility use at least one of these dose optimization te chniques: automated exposure control; mA and/or kV adjustment per patient size (includes targeted exa ms where dose is matched to clinical indication); or iterative reconstruction.
--- NOTE | 2020-08-11 02:50 | DI.CT_ITS ---
EXAM: CT CHEST/ABD/PEL WO CLINICAL HISTORY: altered, distended abdomen, cough. TECHNIQUE: Imaging Protocol: Axial computed tomography images with coronal and sagittal reformatted images were created and reviewed COMPARISON: CR RT HIP COMPLETE AP PELVIS from 04/08/2014 CR,XR XR HIP RT COMPLETE AP PELVIS from 04/10/[address] ABDOMEN PELVIS WO from 05/20/2020 FINDINGS: The examination is limited due to patient motion artifact. CHEST: Thyroid: Heterogeneous multinodular thyroid gland. Nonemergent thyroid ultrasound may be obtained fo r further evaluation if clinically appropriate. Tracheobronchial tree: Patent where visualized. Mediastinum and Danyelle: No dominant adenopathy or fluid collection. Pulmonary parenchyma: There are large bilateral pleural effusions with compressive atelectasis involv ing the lower lobes. Underlying pneumonia cannot be excluded. There is an infiltrate also seen in t he posterior aspect of the right upper lobe. No architectural distortion. Pleura: No pneumothorax. Lymph nodes: Within normal limits. Aorta: Thoracic portion non-dilated. Atherosclerosis. Heart: Marked generalized cardiomegaly. Mild coronary artery calcification. Enlarged pulmonary teodoro zan. Bones: Degenerative changes in the spine. Marked degenerative changes of the shoulders bilaterally. Soft tissues: Generalized edema in the soft tissues. Bilateral gynecomastia. ABDOMEN: Liver: The liver has a cirrhotic appearance. No measurable mass. Gallbladder and biliary tract: There is a question of a fluid debris level within the gallbladder whi ch may represent sludge. The gallbladder is distended. Pancreas: Normal density, no abnormal calcifications or inflammatory process. Spleen: Normal. Kidneys: Marked bilateral renal atrophy. Bilateral nephrolithiasis versus nephrocalcinosis. Left re nal cyst. Adrenal glands: No masses seen. Aorta: Abdominal portion non-dilated. Marked atherosclerosis. Peripherally calcified lesion in the r ight lower quadrant is again seen. It appears to be contiguous with the right external iliac artery. It is been present on prior examinations and appears stable.. Lymph nodes: Within normal limits. PELVIS: Bladder: Nondistended. This in addition to the artifact from the right hip prosthesis limits evaluat ion of the urinary bladder. Bowel: No evidence of obstruction. Moderate thickening of the wall of the rectum and the distal sigm oid colon. No evidence of appendicitis. The stomach is distended. There is a moderate amount of re tained stool in the colon. Peritoneal cavity: There is a moderate amount of perihepatic and perisplenic ascites. Small amount o f the pelvic ascites. No free air. Bones: Degenerative changes. Ankylosis of the sacroiliac joints. Right total hip replacement. Reproductive organs: Within normal limits. Soft tissues: Diffuse subcutaneous wall edema. IMPRESSION: 1. Findings suggestive of hepatic cirrhosis and moderate ascites. 2. Thickening of the wall of the distal sigmoid colon and rectum suspicious for nonspecific colitis a nd proctitis. 3. Gallbladder distension with a question of gallbladder sludge. 4. Anasarca. 5. Marked cardiomegaly. 6. Large bilateral pleural effusions and subjacent atelectasis. RADIATION DOSE DELIVERED: 2,187.22mGy.cm Total DLP 2,187.22mGy.cm Total DLP DATA REPOSITORY: All CT scans at this facility are submitted to the National Radiology Data Registry (NRDR) Dose Index Registry (DIR) with the [employer] (A[employer]). RADIATION OPTIMIZATION: All CT scans at this facility use at least one of these dose optimization te chniques: automated exposure control; mA and/or kV adjustment per patient size (includes targeted exa ms where dose is matched to clinical indication); or iterative reconstruction.
--- NOTE | 2020-08-11 02:57 | W.ED.GENAD ---
Discharge Plan Disposition Patient Disposition: [facility], [place] Condition: Critical Discharge Details Clinical Impression: Acute alteration in mental status, Non-ST elevation [place] (NSTEMI), Cardiogenic shock, Renal failure Primary Care Provider: Stephania Weiss ED Provider: Suhail Mustafa Home Meds and New Rx's Prescriptions: No Action spironolactone 25 mg tablet 12.5 mg PO DAILY RF: 0 simvastatin 40 MG tablet 40 mg PO DAILY RF: 0 allopurinol 100 MG tablet 200 mg PO DAILY RF: 0 hydroxychloroquine 200 MG tablet 200 mg PO BID RF: 0 Carboxymethylcellulose Sodium [Lubricant Eye Drop] 15 ML Drops 1 drp Ophthalmic QID PRN PRNRF: 0 metoprolol succinate 50 mg Tablet Extended Release 24 Hr 50 mg PO DAILY RF: 0 melatonin 3 mg Tablet 3 mg PO HS PRNRF: 0 aspirin 81 mg Tablet,Chewable 81 mg PO DAILY RF: 0 lisinopril 2.5 mg Tablet 2.5 mg PO DAILY RF: 0 vitamin B complex Capsule 1 cap PO DAILY RF: 0 oxycodone 5 mg Tablet 5 - 7.5 mg PO Q4H PRN PRNRF: 0 polyethylene glycol 3350 [Miralax] 17 gram Powder In Packet 17 g PO DAILY RF: 0 sennosides-docusate sodium 8.6-50 mg Tablet 1 tab-cap PO BID RF: 0 bisacodyl 10 mg Suppository 10 mg DC DAILY RF: 0 acetaminophen [Tylenol Arthritis Pain] 650 mg Tablet Extended Release 650 mg PO PRN PRNRF: 0 colchicine [Colcrys] 0.6 mg tablet 0.3 mg PO .TWICE WEEKLY RF: 0 sevelamer carbonate 800 mg tablet 1,600 mg PO TID RF: 0 pantoprazole 40 mg tablet,delayed release (DR/EC) 40 mg PO BID RF: 0 vancomycin 50 mg/mL Recon Soln 125 mg PO QID RF: 0 Lactobacillus acidophilus [Acidophilus] Capsule 500 mmu cells PO DAILY RF: 0 Medical Decision Making This is a 74-year-old male with a past medical history of end-stage renal disease with hemodialysis on Monday, , Monday, hypertension, BPH, gout, rheumatoid arthritis on Plaquenil, cervical spondylolysis, remote history of crush injury of the bilateral lower extremities in 1968 while in [place], chronic pain on opiates, GI bleed requiring transfusion on 06/02/2020, acute on chronic heart failure with an ejection fraction of 20-30%, right hip hemiarthroplasty on 05/21/2020. He presents today for evaluation of altered mental status. History is extremely limited from the patient, and we are unable to get much additional information from the staff [facility]. EMS has no additional information. Per staff/EMS the patient was noted to be slightly altered this evening, not acting his normal self. Uncertain as to last known well, however staff conferred with EMS that it was likely early this afternoon, being 12 hours ago or more. Aside for this altered mental status there was questionable decrease in strength of the right upper extremity, but no other complaints. EMS noted a slightly low blood pressure, blood glucose stable. Patient was brought to the ED for further assessment. No other complaints, no other modifying factors that we are aware of at this time. Exam demonstrates a slightly confused, pale appearing male, chronic ulcer on the right heel, chronic debility in the lower extremities, intact 4 out of 5 strength in the upper extremities, no nuchal rigidity. Mild abdominal tenderness. Uncertain as to what the exact etiology is for the patient's symptoms, but differential is broad and includes electrolyte abnormality, dehydration, infection. Stroke and cardiac etiology is also on the differential. We will evaluate for these, monitor closely and reassess. 4:13 AM Review of previous outpatient testing does indicate positive C. difficile, CT scan does not show evidence of diffuse colitis. No evidence of clear etiology for his current symptoms. Blood pressure is now in the 80s. Heart rate is staying in the 70s. I did contact his , she does confirm that the patient is full code. I did perform a bedside limited echocardiogram, EF at this time appears at best 20%. 5:02 AM Laboratory work-up has returned, hemoglobin is 11.9, white count of 11.6, mild left shift. INR is 1.3, lactate is 1.6, creatinine is 4, BUN 55, both seem to be within reason compared to prior labs. Initial troponin is returned elevated at 0.12, patient has had normal troponins, and slightly elevated troponins in the past but never this high before. In addition, review of prior labs indicate that his previous creatinines were actually higher in the previous settings of the lower troponins. We still has not gotten any urine output, so I doubt this to be a source of infection. CT scan shows mild pleural effusions. Mild enteritis, mild ascites, CT scan of the head was negative for any evidence of stroke. Repeat assessment the patient is still ANO x3, GCS of 15, but he is still definitely not at his normal baseline. I feel that the patient is in a notably precarious scenario, I feel that the elevated troponin is certainly a reflection of demand ischemia, and not consistent with STEMI, however with his low blood pressures I feel this is likely combination of his fulminant heart failure at baseline, coupled with a chronic low reserve. I am notably hesitant to administer a significant bolus to the patient as I worry about causing fulminant pulmonary edema. We are very gently rehydrating at about 25 cc/h. We have no dialysis capabilities here. Symptoms do not appear to be clearly related to infection. Per our hospitalist policy, we are not able to admit the patient here due to lack of dialysis capability. We will reach out to [facility] for further management and potential transfer. 7:45 AM I did contact [facility] and discussed the case with Dr. Kwok and Dr. Matias, discussed the case with findings with them. They agree on the need for transfer. We did discuss the potential for infection, and at this time even though it seems notably low with a lactate of 1.6, no fever, no significant white count, no clear evidence of infectious etiology on imaging, we did decide to add broad-spectrum antibiotics. He does have an allergy to penicillins, so we will give vancomycin and aztreonam to start. His blood pressure continued to decline even while in conversation with [facility], the decision was made to start Levophed as a pressor. Unfortunately shortly after my conversation with [facility] had accepted for admission the patient blew both of his peripheral line quickly extravasated, decision was made to place a right IJ, and arterial line which was placed without complication. Chest x-ray confirms placement. He was started on Levophed and titrated up to 15 of Levophed bringing his systolic back up to the 90s from the 70s. He was started on vancomycin and aztreonam. Even with the improvement of his blood pressure his mental status rapidly began to decline here. So much so that he became borderline unresponsive. Patient was emergently intubated, no complications with procedure. 7.[address] Case was updated with the [facility] critical care team. Of note the patient had a notably atypical finding while placing the right IJ. 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 No evidence of extravasation on notably limited bedside ultrasound. Because of this the decision was made to go notably more proximal/cranially and placing the IJ, great care was performed to confirm that both the initial introducer needle, subsequent catheters, and subsequent guidewire, and triple-lumen catheter were all maintaining position in the IJ and not malpositioned in any other vessel. Patient will be transferred via cal ground. I have extensively reviewed the treatment plan with the patient. I have addressed all patient concerns at this time. I have also discussed the plan with the admitting physician and they agree with the current assessment and plan and have agreed to assume responsibility for the patient. All parties demonstrate verbal understanding and agreement with our assessment and plan at this time. The documentation in this chart was dictated using [employer] dictation software. Please excuse any dictation errors. EKG 2: 53 Sinus rhythm, rate 77, QRS wide at 124, no STEMI, no significant change from review of prior recent EKGs. FINDINGS: Brain: Mild volume loss No hemorrhage. Moderate white matter disease. No mass effect. Cerebral ventricles: No ventriculomegaly. Bones/joints: Unremarkable. No acute fracture. Paranasal sinuses: Visualized sinuses are unremarkable. No fluid levels. Mastoid air cells: Visualized mastoid air cells are well aerated. Soft tissues: Unremarkable. IMPRESSION: No acute intracranial abnormality. ASSESSMENT: ASPECTS ([place] Stroke Program Early CT Score) is 10. Thank you for allowing us to participate in the care of your patient. FINDINGS: Bilateral small to moderate pleural effusions and subsegmental atelectasis. No pneumothorax. Calcified right lower lobe granuloma. Moderate cardiomegaly without pericardial effusion. Enlarged main pulmonary arteries. Coronary calcifications. No aortic aneurysm. No adenopathy. Degenerative changes in the shoulders and spine IMPRESSION: Moderate to severe cardiomegaly Small to moderate pleural effusions and bilateral subsegmental atelectasis Question pulmonary arterial hypertension FINDINGS: Cirrhosis and small to moderate ascites. Gallbladder wall thickening. Vague gallstones versus sludge. The pancreas and adrenal glands are unremarkable. [place] renal atrophy and nephrolithiasis/nephrocalcinosis. Left renal cysts noted. Calcified atrophic right iliac fossa renal transplant. The urinary bladder is partially decompressed. Question mild jejunal thickening No bowel obstruction or free air. No aortic aneurysm or adenopathy. The spleen is not enlarged. Anasarca noted with small amount of fluid in the left inguinal region. No collection or subcutaneous air. Prior right hip arthroplasty. Extensive degenerative changes in the spine IMPRESSION: Cirrhosis and small to moderate ascites No bowel obstruction Question mild jejunal thickening. Correlate for mild enteritis Non-obstructing renal calculi versus calcifications Vague gallstones versus sludge in the gallbladder Thank you for allowing us to participate in the care of your patient. Dictated and Authenticated by: Abdulkadir Love MD 08/11/2020 3:57 AM Eastern Time ([place] & [place]) FINDINGS: Tubes, catheters and devices: Right IJ central venous line in place with tip in the right atrium . Lungs: Patchy pulmonary opacities may reflect pneumonia in the correct clinical setting . Pleural spaces: Small right-sided pleural effusion. Heart/Mediastinum: Unremarkable. No cardiomegaly. Bones/joints: Unremarkable. IMPRESSION: 1. Small right-sided pleural effusion. 2. Right IJ central venous line in place with tip in the right atrium . 3. Patchy pulmonary opacities may reflect pneumonia in the correct clinical setting . Thank you for allowing us to participate in the care of your patient. Dictated and Authenticated by: Rick Gudino MD 08/11/2020 7:04 AM Eastern Time ([place] & [place]) HPI General Date/Time Provider Initiated Documentation: 08/11/20 03:59. HPI Narrative: This is a 74-year-old male with a past medical history of end-stage renal disease with hemodialysis on Monday, , Monday, hypertension, BPH, gout, rheumatoid arthritis on Plaquenil, cervical spondylolysis, remote history of crush injury of the bilateral lower extremities in 1967 while in [place], chronic pain on opiates, GI bleed requiring transfusion on 06/02/2020, acute on chronic heart failure with an ejection fraction of 20-30%, right hip hemiarthroplasty on 05/21/2020. He presents today for evaluation of altered mental status. History is extremely limited from the patient, and we are unable to get much additional information from the staff at [facility]. EMS has no additional information. Per staff/EMS the patient was noted to be slightly altered this evening, not acting his normal self. Uncertain as to last known well, however staff conferred with EMS that it was likely early this afternoon, being 12 hours ago or more. Aside for this altered mental status there was questionable decrease in strength of the right upper extremity, but no other complaints. EMS noted a slightly low blood pressure, blood glucose stable. Patient was brought to the ED for further assessment. No other complaints, no other modifying factors that we are aware of at this time. Related Data Home Medications Medication Instructions Recorded Confirmed simvastatin 40 mg PO DAILY 03/14/14 08/11/20 Carboxymethylcellulose Sodium 1 drp OPHTHALMIC QID PRN PRN 02/02/18 08/11/20 [Lubricant Eye Drop] allopurinol 200 mg PO DAILY 02/02/18 08/11/20 hydroxychloroquine 200 mg PO BID 02/02/18 08/11/20 acetaminophen [Tylenol Arthritis 650 mg PO PRN PRN 03/07/18 08/11/20 Pain] colchicine [Colcrys] 0.3 mg PO .TWICE WEEKLY 05/11/20 08/11/20 sevelamer carbonate 1,600 mg PO TID 05/11/20 08/11/20 aspirin 81 mg PO DAILY 06/01/20 08/11/20 lisinopril 2.5 mg PO DAILY 06/01/20 08/11/20 melatonin 3 mg PO HS PRN 06/01/20 08/11/20 metoprolol succinate 50 mg PO DAILY 06/01/20 08/11/20 oxycodone 5 - 7.5 mg PO Q4H PRN PRN 06/01/20 08/11/20 vitamin B complex 1 cap PO DAILY 06/01/20 08/11/20 bisacodyl 10 mg DC DAILY 06/02/20 08/11/20 polyethylene glycol 3350 [Miralax] 17 g PO DAILY 06/02/20 08/11/20 sennosides-docusate sodium 1 tab-cap PO BID 06/02/20 08/11/20 spironolactone 25 mg tablet 12.5 mg PO DAILY tab 07/30/20 08/11/20 Lactobacillus acidophilus 500 mmu cells PO DAILY 08/11/20 08/11/20 [Acidophilus] pantoprazole 40 mg PO BID 08/11/20 08/11/20 vancomycin 125 mg PO QID 08/11/20 08/11/20 Allergies Allergy/AdvReac Type Severity Reaction Status Date / Time Penicillins Allergy Severe Swelling/Ed Unverified 06/02/20 18:09 shantell dicloxacillin [facility]ergy [facility] Unverified 06/02/20 18:09 terazosin Allergy [facility] Unverified 06/02/20 18:09 General Stated Complaint: AMS/LOC AMADA: 2 Review of Systems All systems reviewed & are unremarkable except as noted in HPI and below PFSH Medical History ESRD (end stage renal disease) on dialysis Gout HTN (hypertension) Hx of hyperlipidemia Kidney stones Surgical History Fistula History of right hip hemiarthroplasty History of tonsillectomy Social History Smoking/Tobacco Use Status: Former Tobacco Use Smoking risk assessment performed?: Yes Alcohol Intake: never Drug use: Never Substance use type: does not use Do you feel safe at home: Yes Do you feel safe in your relationship?: Yes Exam Narrative Exam Narrative: 1.Const: Appearing older than his stated age 2.Eyes: PERRL, no conjunctival injection, and symmetrical lids. 3.ENT: Atraumatic external nose and ears. Dry MM. Neck: Symmetric, trachea midline, No thyromegaly. 4.CVS: +S1/S2, No murmurs or gallops. Peripheral pulses 1+ and equal in all extremities. Capillary refill less than 3 seconds in all extremities 5.RESP: Unlabored respiratory effort. Clear to auscultation bilaterally. No wheezes or rhonchi 6.GI: Mildly soft, mildly distended, multiple surgical scars, mild edema on the right abdominal wall. No redness or warmth. Mild tenderness throughout. Bowel sounds present but slightly reduced 7.MSK: Multiple surgeries on the right hip, multiple evidence of previous surgeries on scars on both lower extremities. No significant movement to the lower extremities bilaterally. Chronic lateral ulcer/wound on the right heel, no evidence of significant redness or warmth at this time. Upper extremities demonstrate 4 out of 5 strength bilaterally, coordination difficult. 8.Skin: Slightly pale, Dry. Please see musculoskeletal for ulcer description on right foot 9.Neuro: Minimal strength in the lower extremities, 4 out of 5 strength in the upper extremities, no nuchal rigidity or signs of meningiomas. Patient demonstrates apparent intact sensation throughout with reduced sensation in the legs though. This seems to be chronic. GCS is 15. 10.Psych: (AAO) x3. However the patient does seem to be slightly out of it. He does not appear to be at his normal baseline. Course Vital Signs Vital signs: Vital Signs Temperature 36.5 C 08/11/20 02:38 Pulse 76 08/11/20 02:38 Respiratory Rate 22 08/11/20 02:38 Blood Pressure 99/51 L 08/11/20 02:38 Pulse Oximetry 97 08/11/20 02:38 Temperature 36.5 C 08/11/20 02:38 Temperature Source Skin 08/11/20 02:38 Pulse 76 08/11/20 02:38 Respiratory Rate 18 08/11/20 02:48 Respiratory Effort 08/11/20 02:48 Respiratory Pattern Normal 08/11/20 02:48 Blood Pressure 99/51 L 08/11/20 02:38 Blood Pressure Position Supine 08/11/20 02:38 Pulse Oximetry 92 08/11/20 02:45 Oxygen Delivery Method Nasal Cannula 08/11/20 02:45 Oxygen Flow Rate 4 08/11/20 02:38 Fraction of Inspired Oxygen (FIO2) 4 08/11/20 02:45 Comment 08/11/20 02:38 Lab/Test Results Lab/Test Results: 08/11/20 02:52 Blood Blood Culture - Pending 08/11/20 02:52 Blood Blood Culture - Pending Procedures Arterial Line Time Out Performed: Yes Size (Gauge): 20 Technique Used: guide wire technique Post-Procedure: line sutured into place and dry sterile dressing placed Patient Tolerated Procedure: well and no complications Site: left Central Line Placement Right IJ: Time Out Performed: Yes Patient Placed on Monitor/Pulse Ox: Yes Prep: mask, gown and gloves Central Line Prep: Chlorhexidine scrub Local Anesthetic: Lidocaine 1% Amount of anesthesia used (mL): 5 Ultrasound Used for Placement: Yes Central Line Lumen Inserted: triple Post Procedure: good blood return, all ports aspirated, flushed, capped and sutured in place with nylon Post Procedure X-Ray: tip of catheter in good position Patient Tolerated Procedure: well Complications: none Additional Comments: Please see note for atypical local findings noted on ultrasound Intubation Time out performed: Yes sedative: Etomidate Mg Given: 20 paralytic: Rocuronium Mg Given: 100 Laryngoscope: fiberoptic video scope Assist Device Used: fiberoptic device ET Tube Size: 7.5 ET Tube Uncuffed: Yes Tube Secured Depth (cm): 22 Tube Secured Location: teeth Tube Placement Confirmation: visualized tube passing through cords, equal breath sounds bilaterally, no breath sounds over epigastrum and confirmation by capnometry Patient Tolerated Procedure: well Intubation Complications: none
[2020-08-11] MEDS: Lidocaine 2% Jelly 11 ML SYR UR (03:07)
[2020-08-11 03:41] LABS: Lactate 1.6 mmol/L (0.6-1.4)
--- NOTE | 2020-08-11 03:42 | DI.VRAD_ITS ---
PROCEDURE INFORMATION: Exam: CT Head Without Contrast Exam date and time: 08/11/2020 2:54 AM Age: 74 years old Clinical indication: Altered mental status/memory loss; Confusion or disorientation TECHNIQUE: Imaging protocol: Computed tomography of the head without contrast. Radiation optimization: All CT scans at this facility use at least one of these dose optimization techniques: automated exposure control; mA and/or kV adjustment per patient size (includes targeted exams where dose is matched to clinical indication); or iterative reconstruction. Other technique: STROKE PROTOCOL was implemented. COMPARISON: CT HEAD CERVICAL SPINE WO 04/10/2020 9:53 PM FINDINGS: Brain: Mild volume loss No hemorrhage. Moderate white matter disease. No mass effect. Cerebral ventricles: No ventriculomegaly. Bones/joints: Unremarkable. No acute fracture. Paranasal sinuses: Visualized sinuses are unremarkable. No fluid levels. Mastoid air cells: Visualized mastoid air cells are well aerated. Soft tissues: Unremarkable. IMPRESSION: No acute intracranial abnormality. ASSESSMENT: ASPECTS ([place] Stroke Program Early CT Score) is 10. Dictated and Authenticated by: Abdulkadir Love MD. Ordering:BRENTON Jang MD
[2020-08-11 03:44] LABS: Abs Immature Grans 0.21 10^3/uL (0.0-0.06); Absolute Basophil Count 0.01 10^3/uL (0.0-0.2); Absolute Lymphocyte Count 0.21 10^3/uL (1.2-3.4); Absolute Monocyte Count 1.15 10^3/uL (0.1-0.8); Absolute Neutrophil Count 10.06 10^3/uL (1.2-6.7); Basophils % 0.1; HCT 39.9 % (40.0-50.0); HGB 11.9 g/dL (13.5-17.5); Immature Grans % 1.8; Lymphocytes % 1.8; MCH 31.6 pg (27.0-33.0); MCHC 29.8 % (32.0-36.0); MCV 105.8 fL (80-95); Monocytes % 9.9; Neutrophils % 86.4; Nucleated RBC 0 %; Platelet Count 279 10^3/uL (130-400); RBC 3.77 10^6/uL (4.36-5.78); RDW 16.3 % (11.8-14.1); RDW-SD 63.5 fL; WBC 11.64 10^3/uL (4.4-10.8)
--- NOTE | 2020-08-11 03:57 | DI.VRAD_ITS ---
PROCEDURE INFORMATION: Exam: CT Chest Without Contrast; Diagnostic Exam date and time: 08/11/2020 3:35 AM Age: 74 years old Clinical indication: Other: Distended abdomen; Abdominal pain; Generalized; Cough; Chest pain; Type not specified; Prior surgery; Surgery date: 6+ months; Surgery type: Right hip, fistula; Additional info: Altered, distended abdomen, cough TECHNIQUE: Imaging protocol: Diagnostic computed tomography of the chest without contrast. Radiation optimization: All CT scans at this facility use at least one of these dose optimization techniques: automated exposure control; mA and/or kV adjustment per patient size (includes targeted exams where dose is matched to clinical indication); or iterative reconstruction. COMPARISON: CT ABDOMEN PELVIS WO 05/20/2020 8:57 PM FINDINGS: Bilateral small to moderate pleural effusions and subsegmental atelectasis. No pneumothorax. Calcified right lower lobe granuloma. Moderate cardiomegaly without pericardial effusion. Enlarged main pulmonary arteries. Coronary calcifications. No aortic aneurysm. No adenopathy. Degenerative changes in the shoulders and spine IMPRESSION: Moderate to severe cardiomegaly Small to moderate pleural effusions and bilateral subsegmental atelectasis Question pulmonary arterial hypertension PROCEDURE INFORMATION: Exam: CT Abdomen And Pelvis Without Contrast Exam date and time: 08/11/2020 3:35 AM Age: 74 years old Clinical indication: Other: Distended abdomen; Abdominal pain; Generalized; Cough; Chest pain; Type not specified; Prior surgery; Surgery date: 6+ months; Surgery type: Right hip, fistula; Additional info: Altered, distended abdomen, cough TECHNIQUE: Imaging protocol: Computed tomography of the abdomen and pelvis without contrast. Radiation optimization: All CT scans at this facility use at least one of these dose optimization techniques: automated exposure control; mA and/or kV adjustment per patient size (includes targeted exams where dose is matched to clinical indication); or iterative reconstruction. COMPARISON: CT ABDOMEN PELVIS WO 05/20/2020 8:57 PM FINDINGS: Cirrhosis and small to moderate ascites. Gallbladder wall thickening. Vague gallstones versus sludge. The pancreas and adrenal glands are unremarkable. [place] renal atrophy and nephrolithiasis/nephrocalcinosis. Left renal cysts noted. Calcified atrophic right iliac fossa renal transplant. The urinary bladder is partially decompressed. Question mild jejunal thickening No bowel obstruction or free air. No aortic aneurysm or adenopathy. The spleen is not enlarged. Anasarca noted with small amount of fluid in the left inguinal region. No collection or subcutaneous air. Prior right hip arthroplasty. Extensive degenerative changes in the spine IMPRESSION: Cirrhosis and small to moderate ascites No bowel obstruction Question mild jejunal thickening. Correlate for mild enteritis Non-obstructing renal calculi versus calcifications Vague gallstones versus sludge in the gallbladder Dictated and Authenticated by: Abdulkadir Love MD. Ordering:BRENTON Jang MD
[2020-08-11] MEDS: Normal Saline 1,000 ML 125 ML IV (04:05)
[2020-08-11 04:06] LABS: Ammonia 16 umol/L (11-32)
[2020-08-11 04:11] LABS: Prothrombin Time 13.5 sec (9.3-11.0)
[2020-08-11 04:12] LABS: INR 1.3 (0.9-1.1)
[2020-08-11 04:24] LABS: Diff Comment Agrees w/ Instrument
[2020-08-11 04:27] LABS: ALT 37 U/L (16-63); AST 32 U/L (15-37); Albumin 2.7 g/dL (3.4-5.0); Alkaline Phosphatase 420 U/L (46-116); Anion Gap 8.8 mmol/L (3-11); BUN 55 mg/dL (7-18); Bilirubin, Total 0.6 mg/dL (0.2-1.0); CO2 31.2 mmol/L (21.0-32.0); Calcium 9.5 mg/dL (8.5-10.1); Chloride 93 mmol/L (98-107); Estimated GFR 14.83 (mL/min/1.73m2); Glucose 81 mg/dL (74-106); Sodium 133 mmol/L (136-145); Total Protein 7.5 g/dL (6.4-8.2)
[2020-08-11 04:36] LABS: Troponin I 0.12 ng/mL (<0.06)
--- NOTE | 2020-08-11 05:32 | NUR.NOTE ---
right lateral ankle ulcer approx 2cm, round. No drainage. 2+ edema to all extremities. inct of small amount of brown liquid stool. Inct care provided. Coccyx red, testicles swollen. left arm swollen.
--- NOTE | 2020-08-11 06:15 | DI.RAD_ITS ---
EXAM: XR PORTABLE CHEST AP POST LINE CLINICAL HISTORY: s/p line placement post right IJ TECHNIQUE: 2D digital imaging was performed. COMPARISON: No exams were available for comparison FINDINGS: MEDIASTINUM: Normal. HEART: Cardiomegaly. PULMONARY VASCULATURE: Normal. LUNGS: Right basilar infiltrate. PLEURAL SPACE: Bilateral pleural effusions. No pneumothorax. BONE:Within normal limits for the patient's age. OTHER FINDINGS:Low lung volumes. Interval placement of a right IJ catheter. The tip of the catheter is seen in the right atrium. IMPRESSION: Right IJ catheter tip is seen in the right atrium. No pneumothorax. DATA REPOSITORY: RADIATION DOSE DELIVERED:
--- NOTE | 2020-08-11 06:40 | NUR.NOTE ---
20g Arterial line placed by Md Mustafa to left radial artery. Pt garcia well.
--- NOTE | 2020-08-11 06:43 | NUR.NOTE ---
LFA IV's removed d/t infiltration.
--- NOTE | 2020-08-11 07:04 | DI.VRAD_ITS ---
PROCEDURE INFORMATION: Exam: XR Chest, 1 View Exam date and time: 08/11/2020 6:49 AM Age: 74 years old Clinical indication: Device placement; Patient HX: Post right ij TECHNIQUE: Imaging protocol: XR of the chest Views: 1 view. COMPARISON: CT CHEST/ABD/PEL WO 08/11/2020 3:37 AM FINDINGS: Tubes, catheters and devices: Right IJ central venous line in place with tip in the right atrium . Lungs: Patchy pulmonary opacities may reflect pneumonia in the correct clinical setting . Pleural spaces: Small right-sided pleural effusion. Heart/Mediastinum: Unremarkable. No cardiomegaly. Bones/joints: Unremarkable. IMPRESSION: 1. Small right-sided pleural effusion. 2. Right IJ central venous line in place with tip in the right atrium . 3. Patchy pulmonary opacities may reflect pneumonia in the correct clinical setting . Dictated and Authenticated by: Rick Gudino MD. Ordering:BRENTON Jang MD
[2020-08-11] MEDS: Etomidate 20 MG/10 ML VIAL IVP (07:13)
[2020-08-11] MEDS: Rocuronium 50 MG/5 ML SYR 100 MG IVP (07:14)
[2020-08-11] MEDS: PROPOFOL 1,000 MG/100 ML BTL 12.7 MG (07:20)
[2020-08-11] MEDS: AZTREONAM 2,000 MG in Normal Saline 100 ML 200 MG IVPB (07:30)
--- NOTE | 2020-08-11 07:41 | DI.RAD_ITS ---
EXAM: XR PORTABLE CHEST AP POST LINE CLINICAL HISTORY: post intubation TECHNIQUE: 2D digital imaging was performed. COMPARISON: CR,XR XR PORTABLE CHEST AP POST LINE from 08/11/2020 FINDINGS: The heart is enlarged. There are bilateral pleural effusions and basilar infiltrates. The right IJ catheter tip is in good position at the junction of the superior vena cava and right atrium. There h as been interval placement of an endotracheal tube. The tip of the catheter is at the thoracic inlet 5 cm above the jadon. IMPRESSION: 1. Stable pulmonary findings. 2. Endotracheal tube 5 cm above the jadon. DATA REPOSITORY: RADIATION DOSE DELIVERED:
[2020-08-11] MEDS: VANCOMYCIN/WATER (PEG) 2 GM/400 ML BAG IVPB (08:00)
[2020-08-11 08:05] LABS: BE 3 mmol/L (-2-3); HCO3 29 mmol/L (22-26); pCO2 50 mmHg (35-45); pH 7.37 (7.35-7.45); pO2 72 mmHg (80-105); sO2 93 % (95-98); tCO2 26 mmol/L (23-27)
[2020-08-11 08:07] LABS: FIO2 40 %; Site Right Radial
[2020-08-11] MEDS: Normal Saline Flush 10 ML SYR IVP (08:52)
--- NOTE | 2020-08-11 09:00 | RESPIRATORY ---
Rt called to ER Rm [address] Mustafa's request to have RT present at 6:47am. Upon arrival, C-Max and 7.5mm ET tube set-up with stylet by ER doctor who also checked ET tube cuff before RT arrival. RT set-up ambu bag with CO2 detector and bacterial filter along with suction. Patient intubated for airway protection along with change in mental status. ABG drawn post intubation 7.37/50/72/29, no complications and settings continued. Patient is to be transfered to [facility] by [facility] via ambulanceon current ventilator settings.
--- NOTE | 2020-08-11 09:02 | NUR.NOTE ---
Nursing Note: After patient was transferred a t-shirt was found behind in room. [facility] call placed to [facility] staff and notified that shirt is in a patient belongings bag with a patient label and left with access staff and may be picked up at the ER entrance
== END 2020-08-11 08:24 | disposition short-term general hospital (02) ==
PROVIDERS: Emergency Provider Student in an Organized Health Care Education/Training Program; PCP Nurse Practitioner Adult Health
DX: R57.0 Cardiogenic shock (principal); I21.4 Non-ST elevation (NSTEMI) myocardial infarction; N17.8 Other acute kidney failure; I95.9 Hypotension, unspecified; N18.6 End stage renal disease; Z99.2 Dependence on renal dialysis; I13.2 Hypertensive heart and chronic kidney disease with heart failure and with stage 5 chronic kidney disease, or end stage renal disease; I50.23 Acute on chronic systolic (congestive) heart failure
CPT/HCPCS: 31500; 36415; 51701; 71045; 71250; 80053; 82805; 87040; 93005; 96361; 96365; 96368; 96375; 99291; 99292; 36010; 36600; 70450; 74176; 81003; 82140; 83605; 83735; 84443; 84484; 85025; 85610; 93010